=== PATIENT | female | born 1975 | race Caucasian/White ===

== ENCOUNTER 2016-09-25 23:15 | Emergency (ER) | payer OTHER ==
[2016-09-25] MEDS ORDERED: ONDANSETRON 4 MG/2 ML VIAL IVP STA (23:36)
[2016-09-25] MEDS ORDERED: SODIUM CHLORIDE 0.9% 1,000 ML IV STA (23:36)
[2016-09-25] MEDS ORDERED: DICYCLOMINE 10 MG/ML 2 ML AMP IM STA (23:36)
--- NOTE | 2016-09-25 23:39 | ED ---
Abdominal Pain HPI - General Chief Complaint: Abdominal Pain Stated Complaint: abdominal pain Time Seen by Provider: 09/25/16 23:31 Source: patient, RN notes reviewed Mode of arrival: ambulatory Limitations: no limitations - History of Present Illness Initial Comments: 41-year-old female presents emergency Department chief complaint of nausea vomiting and diarrhea. Patient states she has been having nausea and vomiting starting today. Patient states that it then she had episode of diarrhea while she was here. Patient states she has this crampy type pain in the left lower quadrant in the left back. Patient denies any history like this in the past. Patient states she doesn't have any burning or stinging with urination. Patient states she hasn't had any fever or chills. Patient states that she was concerned due to the continued discomfort so she thought that she should be evaluated. Patient denies any recent fever, chills, shortness of breath, chest pain, back pain, numbness or tingling, dysuria or hematuria, constipation, headaches or visual changes, or any other current symptoms. - Related Data Home Medications Medication Instructions Recorded Confirmed Glimepiride [Amaryl] 2 mg PO BID 06/20/14 06/10/16 Ibuprofen [Motrin] 800 mg PO TID PRN 05/11/16 06/10/16 Allergies Allergy/AdvReac Type Severity Reaction Status Date / Time cephalexin monohydrate Allergy Nausea & Verified 09/25/16 23:21 [From Keflex] Vomiting hydromorphone HCl AdvReac Nausea & Verified 09/25/16 23:21 [From Dilaudid] Vomiting Review of Systems ROS Statement: Those systems with pertinent positive or pertinent negative responses have been documented in the HPI. ROS Other: All systems not noted in ROS Statement are negative. Past Medical History Past Medical History: Diabetes Mellitus Additional Past Medical History / Comment(s): CHRONIC NECK PAIN AND MIGRAINES. HISTORY OF RECTAL BLEEDING History of Any Multi-Drug Resistant Organisms: None Reported Past Surgical History: Hysterectomy, Orthopedic Surgery Additional Past Surgical History / Comment(s): Cervical fusion. Knee x2 Additional Past Anesthesia/Blood Transfusion Reaction / Comment(s): DIFFICULT TO WAKE UP. Past Psychological History: No Psychological Hx Reported Smoking Status: Never smoker Past Alcohol Use History: Rare Past Drug Use History: None Reported General Exam - General Exam Comments Initial Comments: General: The patient is awake and alert, in no distress, and does not appear acutely ill. Eye: Pupils are equal, round and reactive to light, extra-ocular movements are intact; there is normal conjunctiva bilaterally. No signs of icterus. Ears, nose, mouth and throat: There are moist mucous membranes. Neck: The neck is supple, there is no tenderness. Cardiovascular: There is a regular rate and rhythm. No murmur, rub or gallop is appreciated. Respiratory: Lungs are clear to auscultation, respirations are non-labored, breath sounds are equal. No wheezes, stridor, rales, or rhonchi. Gastrointestinal: Soft, non-distended, left lower quadrant tenderness of the abdomen without masses or organomegaly noted. There is no rebound or guarding present. No CVA tenderness. Bowel sounds are unremarkable. Back: There is no tenderness to palpation in the midline. There is no obvious deformity. No rashes noted. Musculoskeletal: Normal ROM, no tenderness, There is no pedal edema. There is no calf tenderness or swelling. Sensation intact. Pulses equal bilaterally 2+. Neurological: CN II-XII intact, There are no obvious motor or sensory deficits. Coordination appears grossly intact. Speech is normal. Skin: Skin is warm and dry and no rashes or lesions are noted. Psychiatric: Cooperative, appropriate mood & affect, normal judgment. Limitations: no limitations Course Vital Signs 09/25/16 09/26/16 23:18 01:12 Temperature 97.0 F L 98 F Pulse Rate 96 98 Respiratory 18 20 Rate Blood Pressure 118/57 140/70 O2 Sat by Pulse 98 98 Oximetry - Reevaluation(s) Reevaluation #1: 09/26/16 01:44 Patient sleeping the remainder resting comfortably. Reevaluation #2: 09/26/16 03:12 Patient's glucoses trending down at this time she has been rehydrated. Patient will be discharged. Medical Decision Making - Medical Decision Making 41-year-old male presents emergency Department with chief complaint abdominal pain. Patient was reassessed abdomen is soft nontender. Patient sleeping comfortably and has had no nausea vomiting here. Other similar history but does show some hyperglycemia however acetone is negative. This time lactic is elevated most likely due to dehydration from the nausea vomiting diarrhea and elevated white blood cell count is also most likely due to the nausea and vomiting as a reactive number. At this time we did discuss that we will start patient on Zofran for home and Bentyl to help with her pain. We did discuss that she needs to keep hydrated home. We did discuss follow-up and all patient' s questions. Patient is agreeable plan. She is accompanied plan. She'll be discharged. - Lab Data Result diagrams: 09/25/16 23:59 09/25/16 23:59 Lab Results 09/25/16 09/25/16 09/25/16 Range/Units 23:59 23:59 23:59 WBC 11.3 H (3.8-10.6) k/uL RBC 5.56 H (3.80-5.40) m/uL Hgb 14.1 (11.4-16.0) gm/dL Hct 47.3 H (34.0-46.0) % MCV 85.1 (80.0-100.0) fL MCH 25.4 (25.0-35.0) pg MCHC 29.8 L (31.0-37.0) g/dL RDW 13.5 (11.5-15.5) % Plt Count 280 (150-450) k/uL Neutrophils % 84 % Lymphocytes % 11 % Monocytes % 3 % Eosinophils % 0 % Basophils % 0 % Neutrophils # 9.6 H (1.3-7.7) k/uL Lymphocytes # 1.3 (1.0-4.8) k/uL Monocytes # 0.3 (0-1.0) k/uL Eosinophils # 0.0 (0-0.7) k/uL Basophils # 0.0 (0-0.2) k/uL Hypochromasia Moderate Sodium 138 (137-145) mmol/L Potassium 4.3 (3.5-5.1) mmol/L Chloride 98 (98-107) mmol/L Carbon Dioxide 23 (22-30) mmol/L Anion Gap 17 mmol/L BUN 15 (7-17) mg/dL Creatinine 0.60 (0.52-1.04) mg/dL Est GFR (MDRD) Af Amer >60 (>60 ml/min/1.73 sqM) Est GFR (MDRD) Non-Af >60 (>60 ml/min/1.73 sqM) Glucose 352 H (74-99) mg/dL POC Glucose (mg/dL) (75-99) mg/dL POC Glu Slab Puller ID Plasma Lactic Acid Tj 3.6 H* (0.7-2.0) mmol/L Calcium 10.4 H (8.4-10.2) mg/dL Total Bilirubin 0.6 (0.2-1.3) mg/dL AST 18 (14-36) U/L ALT 34 (9-52) U/L Alkaline Phosphatase 90 (38-126) U/L Total Protein 7.3 (6.3-8.2) g/dL Albumin 4.4 (3.5-5.0) g/dL Amylase 113 H (30-110) U/L Lipase 155 (23-300) U/L Urine Color Urine Appearance (Clear) Urine pH (5.0-8.0) Ur Specific [place] (1.001-1.035) Urine Protein (Negative) Urine Glucose (UA) (Negative) Urine Ketones (Negative) Urine Blood (Negative) Urine Nitrate (Negative) Urine Bilirubin (Negative) Urine Urobilinogen (<2.0) mg/dL Ur Leukocyte Esterase (Negative) Acetone, Qual Negative (Negative) 09/25/16 09/26/16 09/26/16 Range/Units 23:59 01:44 02:23 WBC (3.8-10.6) k/uL RBC (3.80-5.40) m/uL Hgb (11.4-16.0) gm/dL Hct (34.0-46.0) % MCV (80.0-100.0) fL MCH (25.0-35.0) pg MCHC (31.0-37.0) g/dL RDW (11.5-15.5) % Plt Count (150-450) k/uL Neutrophils % % Lymphocytes % % Monocytes % % Eosinophils % % Basophils % % Neutrophils # (1.3-7.7) k/uL Lymphocytes # (1.0-4.8) k/uL Monocytes # (0-1.0) k/uL Eosinophils # (0-0.7) k/uL Basophils # (0-0.2) k/uL Hypochromasia Sodium (137-145) mmol/L Potassium (3.5-5.1) mmol/L Chloride (98-107) mmol/L Carbon Dioxide (22-30) mmol/L Anion Gap mmol/L BUN (7-17) mg/dL Creatinine (0.52-1.04) mg/dL Est GFR (MDRD) Af Amer (>60 ml/min/1.73 sqM) Est GFR (MDRD) Non-Af (>60 ml/min/1.73 sqM) Glucose (74-99) mg/dL POC Glucose (mg/dL) 312 H 315 H (75-99) mg/dL POC Glu Slab Puller Cristy Bertrand Karen Plasma Lactic Acid Tj (0.7-2.0) mmol/L Calcium (8.4-10.2) mg/dL Total Bilirubin (0.2-1.3) mg/dL AST (14-36) U/L ALT (9-52) U/L Alkaline Phosphatase (38-126) U/L Total Protein (6.3-8.2) g/dL Albumin (3.5-5.0) g/dL Amylase (30-110) U/L Lipase (23-300) U/L Urine Color Yellow Urine Appearance Clear (Clear) Urine pH 6.0 (5.0-8.0) Ur Specific [place] 1.026 (1.001-1.035) Urine Protein Negative (Negative) Urine Glucose (UA) 4+ H (Negative) Urine Ketones Trace H (Negative) Urine Blood Negative (Negative) Urine Nitrate Negative (Negative) Urine Bilirubin Negative (Negative) Urine Urobilinogen <2.0 (<2.0) mg/dL Ur Leukocyte Esterase Negative (Negative) Acetone, Qual (Negative) 09/26/16 Range/Units 03:11 WBC (3.8-10.6) k/uL RBC (3.80-5.40) m/uL Hgb (11.4-16.0) gm/dL Hct (34.0-46.0) % MCV (80.0-100.0) fL MCH (25.0-35.0) pg MCHC (31.0-37.0) g/dL RDW (11.5-15.5) % Plt Count (150-450) k/uL Neutrophils % % Lymphocytes % % Monocytes % % Eosinophils % % Basophils % % Neutrophils # (1.3-7.7) k/uL Lymphocytes # (1.0-4.8) k/uL Monocytes # (0-1.0) k/uL Eosinophils # (0-0.7) k/uL Basophils # (0-0.2) k/uL Hypochromasia Sodium (137-145) mmol/L Potassium (3.5-5.1) mmol/L Chloride (98-107) mmol/L Carbon Dioxide (22-30) mmol/L Anion Gap mmol/L BUN (7-17) mg/dL Creatinine (0.52-1.04) mg/dL Est GFR (MDRD) Af Amer (>60 ml/min/1.73 sqM) Est GFR (MDRD) Non-Af (>60 ml/min/1.73 sqM) Glucose (74-99) mg/dL POC Glucose (mg/dL) 231 H (75-99) mg/dL POC Glu Slab Puller ID Jenny Esteves Plasma Lactic Acid Tj (0.7-2.0) mmol/L Calcium (8.4-10.2) mg/dL Total Bilirubin (0.2-1.3) mg/dL AST (14-36) U/L ALT (9-52) U/L Alkaline Phosphatase (38-126) U/L Total Protein (6.3-8.2) g/dL Albumin (3.5-5.0) g/dL Amylase (30-110) U/L Lipase (23-300) U/L Urine Color Urine Appearance (Clear) Urine pH (5.0-8.0) Ur Specific [place] (1.001-1.035) Urine Protein (Negative) Urine Glucose (UA) (Negative) Urine Ketones (Negative) Urine Blood (Negative) Urine Nitrate (Negative) Urine Bilirubin (Negative) Urine Urobilinogen (<2.0) mg/dL Ur Leukocyte Esterase (Negative) Acetone, Qual (Negative) Disposition Clinical Impression: Dehydration, Nausea & vomiting, Diarrhea, Liver lesion, Ovarian cyst, left Disposition: HOME SELF-CARE Condition: Stable Instructions: Dehydration (ED), Gastroenteritis (ED) Additional Instructions: Please use medication as discussed. Please follow up with family doctor if symptoms have not improved over the next two days. Please return to the emergency room if your symptoms increase or worsen or for any other concerns. Referrals: Melo Cotter MD [Primary Care Provider] - 1-2 days Time of Disposition: :12
[2016-09-26 00:12] LABS: Appearance,Urine Clear (Clear); Bilirubin,Urine Negative (Negative); Glucose,Urine (UA) 4+ (Negative); Ketones,Urine Trace (Negative); Leukocyte Esterase,Urine Negative (Negative); Nitrite,Urine Negative (Negative); Protein,Urine Negative (Negative); Specific Gravity,Urine 1.026 (1.001-1.035); UA Billing (MACRO vs. MICRO) CHEM; Urobilinogen,Urine <2.0 mg/dL (<2.0)
[2016-09-26 00:16] LABS: Basophils % (A) 0 %; CH 26.2; CHCM 30.9; Eosinophils % (A) 0 %; HCT 47.3 % (34.0-46.0); HDW 2.99; HGB 14.1 gm/dL (11.4-16.0); Hypochromasia Moderate; Luc # (Auto) 0.12; Luc % (Auto) 1; Lymphocytes # (A) 1.3 k/uL (1.0-4.8); Lymphocytes % (A) 11 %; MCH 25.4 pg (25.0-35.0); MCHC 29.8 g/dL (31.0-37.0); MCV 85.1 fL (80.0-100.0); Mean Platelet Volume 7.1; Monocytes # (A) 0.3 k/uL (0-1.0); Monocytes % (A) 3 %; Neutrophils # (A) 9.6 k/uL (1.3-7.7); Neutrophils % (A) 84 %; RBC 5.56 m/uL (3.80-5.40); RDW 13.5 % (11.5-15.5); WBC 11.3 k/uL (3.8-10.6); WBC (Perox) 11.45
[2016-09-26] MEDS ORDERED: RX INFO: IV CONTRAST WAS GIVEN 1 EACH MISC MISCELLANE PRN (00:23)
[2016-09-26 00:25] LABS: ALT 34 U/L (9-52); AST 18 U/L (14-36); Alkaline Phosphatase 90 U/L (38-126); Amylase 113 U/L (30-110); Anion Gap 17 mmol/L; Blood Urea Nitrogen 15 mg/dL (7-17); Calcium 10.4 mg/dL (8.4-10.2); Carbon Dioxide 23 mmol/L (22-30); Chloride 98 mmol/L (98-107); Glucose 352 mg/dL (74-99); Non-African American GFR(MDRD) >60 (>60 ml/min/1.73 sqM); Potassium 4.3 mmol/L (3.5-5.1); Sodium 138 mmol/L (137-145); Total Bilirubin 0.6 mg/dL (0.2-1.3); Total Protein 7.3 g/dL (6.3-8.2)
[2016-09-26] MEDS ORDERED: SODIUM CHLORIDE 0.9% 2,000 ML IV STA (00:36)
[2016-09-26] MEDS ORDERED: ACETAMINOPHEN IV (For NPO) 1,000 MG in EMPTY BAG 1 BAG IVPB ONE (00:40)
[2016-09-26 01:13] VITALS: BP 140/70; PULSE 98; RESP 20; TEMP 98
--- NOTE | 2016-09-26 01:33 | CT ---
EXAM: CT Abdomen and Pelvis With Intravenous Contrast. CLINICAL HISTORY: Reason: Pain TECHNIQUE: Axial computed tomography images of the abdomen and pelvis with intravenous contrast. CTDI is 9.20 mGy and DLP is 629.2 mGy-cm COMPARISON: None available FINDINGS: Lower thorax: Lung bases are clear. ABDOMEN: Liver: Unremarkable. No mass. Gallbladder and bile ducts: 1.4cm hepatic low density along posterior dome of the liver is nonspecific. This is not identified on delayed postcontrast images and could reflect hepatic hemangioma but cannot exclude hepatic neoplasm or other etiologies. No other focal hepatic abnormalities. No radiopaque gallstones identified. No evidence of biliary dilatation. Pancreas: Unremarkable. No mass. No ductal dilation. Spleen: Unremarkable. No splenomegaly. Adrenals: Unremarkable. No mass. Kidneys and ureters: Small approximately 2 mm nonobstructing calculus upper Pole-mid zone left kidney. No evidence of hydronephrosis. Stomach and bowel: No evidence of bowel obstruction. Colon is incompletely distended limiting colonic evaluation. Appendix: Appendix not identified. No inflammatory changes identified. No evidence of appendicitis. There are no abnormal fluid collections. PELVIS: Bladder: Unremarkable. No mass. Reproductive: Left adnexal low density measuring approximately 1.4 x 2. 3 cm suggesting left ovarian cyst. No other abnormal pelvic masses or fluid collections. Uterus not visualized suggesting previous hysterectomy. ABDOMEN and PELVIS: Intraperitoneal space: Unremarkable. No free air. No significant fluid collection. Vasculature: Unremarkable. No abdominal aortic aneurysm. Lymph nodes: Unremarkable. No enlarged lymph nodes. IMPRESSION: 1.4cm hepatic low-density lesion along posterior dome of liver which is nonspecific. Follow-up ultrasound or pre-and postcontrast MRI abdomen recommended. Small nonobstructing left renal calculus. Small left ovarian cyst.
[2016-09-26 01:46] LABS: Glucose,Whole Blood 312 mg/dL (75-99)
[2016-09-26] MEDS ORDERED: INSULIN LISPRO (humaLOG) 300 UNIT/3 ML VIAL SQ ONE (01:47)
[2016-09-26] MEDS ORDERED: INSULIN REGULAR 100 UNIT/ML VIAL IV STA (02:25)
[2016-09-26 02:27] LABS: Glucose,Whole Blood 315 mg/dL (75-99)
[2016-09-26 03:12] LABS: Glucose,Whole Blood 231 mg/dL (75-99)
== END 2016-09-26 03:23 | disposition home or self-care (01) ==
LOC: EC 23:15
DX: N83.202 Unspecified ovarian cyst, left side (principal); E86.0 Dehydration; R11.2 Nausea with vomiting, unspecified; R19.7 Diarrhea, unspecified; K76.9 Liver disease, unspecified; E11.9 Type 2 diabetes mellitus without complications; Z79.84 Long term (current) use of oral hypoglycemic drugs; Z88.1 Allergy status to other antibiotic agents
CPT/HCPCS: 36415 ×2; 80053; 82150; 82009; 83605; 83690; 85025; 81003; 87040; 87086; 74177; 99284; 96365; 96375 ×2; 96372; 96361 ×3; J0500; J2405; Q9967; J0131

== ENCOUNTER → 2016-11-13 | Outpatient (CLI) | payer OTHER ==
--- NOTE | 2016-11-17 09:24 | MM ---
Reason for exam: screening (asymptomatic). Last mammogram was performed 11 years and 3 months ago. History: Family history of breast cancer in maternal grandmother. Physical Findings: Nurse did not find any significant physical abnormalities on exam. MG Screening Mammo w CAD Bilateral CC and MLO view(s) were taken. No prior studies available for comparison. The breast tissue is heterogeneously dense. This may lower the sensitivity of mammography. There is no discrete abnormality. These results were verbally communicated with the patient and result sheet given to the patient on 11/13/16. ASSESSMENT: Negative, BI-RAD 1 RECOMMENDATION: Routine screening mammogram of both breasts in 1 year. Manage on a clinical basis with regard to left breast pain and milk discharge from the breasts.
== END | disposition home or self-care (01) ==
LOC: RADMAMWWP 16:21
PROVIDERS: ATTEND Internal Medicine
DX: Z12.31 Encounter for screening mammogram for malignant neoplasm of breast (principal)

== ENCOUNTER → 2016-11-23 | Outpatient (CLI) | payer OTHER ==
[2016-11-23 13:28] LABS: CH 24.4; CHCM 30.1; HCT 41.1 % (34.0-46.0); HDW 3.21; HGB 12.5 gm/dL (11.4-16.0); Hypochromasia Marked; MCH 24.8 pg (25.0-35.0); MCHC 30.4 g/dL (31.0-37.0); MCV 81.4 fL (80.0-100.0); Mean Platelet Volume 7.6; RBC 5.05 m/uL (3.80-5.40); RDW 13.6 % (11.5-15.5); WBC 5.9 k/uL (3.8-10.6)
--- NOTE | 2016-11-23 13:29 | XR ---
EXAMINATION TYPE: XR chest 2V DATE OF EXAM: 11/23/2016 1:20 PM COMPARISON: 09/10/2015 TECHNIQUE: PA and lateral views submitted. HISTORY: Physical exam FINDINGS: The lungs are clear and there is no pneumothorax, pleural effusion, or focal pneumonia. Surgical ch jose overlying the cervical spine. IMPRESSION: 1. No acute process.
[2016-11-23 13:37] LABS: ALT 25 U/L (9-52); AST 15 U/L (14-36); Alkaline Phosphatase 77 U/L (38-126); Anion Gap 10 mmol/L; Blood Urea Nitrogen 12 mg/dL (7-17); Carbon Dioxide 27 mmol/L (22-30); Chloride 101 mmol/L (98-107); Cholesterol 162 mg/dL (<200); Glucose 222 mg/dL (74-99); HDL Cholesterol 78 mg/dL (40-60); Non-African American GFR(MDRD) >60 (>60 ml/min/1.73 sqM); Potassium 4.5 mmol/L (3.5-5.1); Sodium 138 mmol/L (137-145); Total Bilirubin 0.5 mg/dL (0.2-1.3); Total Protein 6.5 g/dL (6.3-8.2); Triglycerides 98 mg/dL (<150)
[2016-11-23 14:43] LABS: Hemoglobin A1C 8.6 % (4.2-6.1)
== END | disposition home or self-care (01) ==
LOC: LABWHC1 12:58
PROVIDERS: ATTEND Internal Medicine
DX: Z00.00 Encounter for general adult medical examination without abnormal findings (principal); E11.9 Type 2 diabetes mellitus without complications; E78.2 Mixed hyperlipidemia; J45.909 Unspecified asthma, uncomplicated
CPT/HCPCS: 36415; 71020; 80053; 80061; 82043; 83036; 84439; 84443; 85027

== ENCOUNTER 2017-01-28 02:31 | Observation (INO) | payer OTHER ==
[2017-01-28] MEDS ORDERED: ASPIRIN 81 MG CHEW PO STA (03:08)
--- NOTE | 2017-01-28 03:17 | ED ---
Chest Pain HPI - General Chief Complaint: Chest Pain Stated Complaint: Chest pressure,SOB Time Seen by Provider: 01/28/17 02:40 Source: patient Mode of arrival: ambulatory Limitations: no limitations - History of Present Illness Initial Comments: This patient is a 42-year-old woman who presents to be evaluated for left-sided chest heaviness that came on around 11 PM tonight while she was sitting. The patient does note that she had had a couple of days of left arm numbness prior to the onset of this. Patient describes a heaviness as constant, moderate, without worsening or relieving factors. MD Complaint: chest pain Onset/Timin -: hour(s) Onset: during rest Pain Location: left chest Pain Radiation: LUE Severity: moderate Quality: heaviness Consistency: constant Improves With: nothing Worsens With: nothing Treatments Prior to Arrival: none - Related Data Home Medications Medication Instructions Recorded Confirmed Glimepiride [Amaryl] 2 mg PO BID 06/20/14 06/10/16 Ibuprofen [Motrin] 800 mg PO TID PRN 05/11/16 06/10/16 Allergies Allergy/AdvReac Type Severity Reaction Status Date / Time cephalexin monohydrate Allergy Nausea & Verified 01/28/17 02:47 [From Keflex] Vomiting hydromorphone HCl AdvReac Nausea & Verified 01/28/17 02:47 [From Dilaudid] Vomiting Review of Systems ROS Statement: Those systems with pertinent positive or pertinent negative responses have been documented in the HPI. ROS Other: All systems not noted in ROS Statement are negative. Constitutional: Denies: fever, chills, weakness Respiratory: Denies: cough, dyspnea, wheezes Cardiovascular: Reports: chest pain. Denies: palpitations, dyspnea on exertion , orthopnea, edema, syncope Gastrointestinal: Denies: abdominal pain, nausea, vomiting Genitourinary: Denies: dysuria, hematuria Musculoskeletal: Denies: back pain Skin: Denies: rash Neurological: Denies: headache, weakness, numbness EKG Findings - EKG Results: EKG: interpreted by TOMMIE, sinus rhythm, normal axis, normal QRS, normal ST/T EKG shows: tachycardia (Rate approximately 103 bpm) Past Medical History Past Medical History: Diabetes Mellitus Additional Past Medical History / Comment(s): CHRONIC NECK PAIN AND MIGRAINES. HISTORY OF RECTAL BLEEDING "swollen blood vessels in head" History of Any Multi-Drug Resistant Organisms: None Reported Past Surgical History: Hysterectomy, Orthopedic Surgery Additional Past Surgical History / Comment(s): Cervical fusion. Knee x2 Additional Past Anesthesia/Blood Transfusion Reaction / Comment(s): DIFFICULT TO WAKE UP. Past Psychological History: No Psychological Hx Reported Smoking Status: Never smoker Past Alcohol Use History: Rare Past Drug Use History: None Reported General Exam Limitations: no limitations General appearance: alert, in no apparent distress Head exam: Present: atraumatic, normocephalic, normal inspection ENT exam: Present: normal oropharynx Neck exam: Present: normal inspection Respiratory exam: Present: normal lung sounds bilaterally. Absent: respiratory distress, wheezes, rales, rhonchi, stridor Cardiovascular Exam: Present: regular rate, normal rhythm, normal heart sounds. Absent: systolic murmur, diastolic murmur, rubs, gallop GI/Abdominal exam: Present: soft. Absent: distended, tenderness, guarding, rebound, mass Extremities exam: Present: normal inspection, normal capillary refill. Absent: pedal edema, calf tenderness Back exam: Present: normal inspection. Absent: CVA tenderness (R), CVA tenderness (L) Neurological exam: Present: alert Skin exam: Present: warm, dry, intact, normal color. Absent: rash Course Vital Signs 01/28/17 01/28/17 01/28/17 02:39 03:55 06:26 Temperature 98.7 F Pulse Rate 101 H 92 75 Respiratory 18 18 18 Rate Blood Pressure 135/79 122/65 170/81 O2 Sat by Pulse 97 100 94 L Oximetry Disposition Clinical Impression: Chest pain Disposition: ADMITTED IP TO THIS HOSP Condition: Fair Instructions: Chest Pain (ED) Referrals: Melo Cotter MD [Primary Care Provider] - 1-2 days
[2017-01-28 03:39] LABS: Anisocytosis Slight; Basophils % (A) 0 %; CH 24.5; CHCM 30.9; Eosinophils % (A) 0 %; HCT 44.5 % (34.0-46.0); HDW 2.57; HGB 13.9 gm/dL (11.4-16.0); Hypochromasia Slight; Luc # (Auto) 0.18; Luc % (Auto) 2; Lymphocytes # (A) 3.6 k/uL (1.0-4.8); Lymphocytes % (A) 31 %; MCH 24.9 pg (25.0-35.0); MCHC 31.3 g/dL (31.0-37.0); MCV 79.5 fL (80.0-100.0); Mean Platelet Volume 6.8; Monocytes # (A) 0.4 k/uL (0-1.0); Monocytes % (A) 4 %; Neutrophils # (A) 7.2 k/uL (1.3-7.7); Neutrophils % (A) 63 %; RDW 16.1 % (11.5-15.5); WBC 11.5 k/uL (3.8-10.6); WBC (Perox) 10.76
[2017-01-28 03:47] LABS: ALT 28 U/L (9-52); AST 19 U/L (14-36); Alkaline Phosphatase 70 U/L (38-126); Anion Gap 14 mmol/L; Blood Urea Nitrogen 17 mg/dL (7-17); Calcium 9.7 mg/dL (8.4-10.2); Carbon Dioxide 23 mmol/L (22-30); Chloride 100 mmol/L (98-107); Glucose 297 mg/dL (74-99); Magnesium 1.7 mg/dL (1.6-2.3); Non-African American GFR(MDRD) >60 (>60 ml/min/1.73 sqM); Potassium 4.4 mmol/L (3.5-5.1); Sodium 137 mmol/L (137-145); Total Bilirubin 0.4 mg/dL (0.2-1.3)
[2017-01-28 04:08] LABS: Creatine Kinase 39 U/L (30-135)
--- NOTE | 2017-01-28 04:09 | XR ---
EXAM: XR Chest, 2 Views CLINICAL HISTORY: Reason: Chest Pain TECHNIQUE: Frontal and lateral views of the chest. COMPARISON: 11/23/2016 FINDINGS: Lungs: Unremarkable. No consolidation. Pleural space: Unremarkable. No pneumothorax. Heart: Unremarkable. No cardiomegaly. Mediastinum: Unremarkable. Bones/joints: Unremarkable. IMPRESSION: Normal chest x-rays.
[2017-01-28 04:15] LABS: Partial Thromboplastin Time 21.9 sec (22.0-30.0); Prothrombin Time 9.9 sec (9.0-12.0)
[2017-01-28 04:19] LABS: Creatine Kinase MB 0.8 ng/mL (0.0-2.4); Troponin I <0.012 ng/mL (0.000-0.034)
[2017-01-28] MEDS ORDERED: NITROGLYCERIN SL TABS 0.4 MG TAB SUBLINGUAL PRN (06:37)
[2017-01-28] MEDS ORDERED: SODIUM CHLORIDE 0.9% 1,000 ML IV SCH (06:45)
[2017-01-28 07:26] LABS: Glucose,Whole Blood 228 mg/dL (75-99)
[2017-01-28 08:31] VITALS: BMI 29.9
[2017-01-28 09:58] LABS: Creatine Kinase 27 U/L (30-135)
[2017-01-28 10:10] LABS: Creatine Kinase MB 0.5 ng/mL (0.0-2.4); Troponin I <0.012 ng/mL (0.000-0.034)
[2017-01-28] MEDS ORDERED: DOBUTamine DRIP for NUC MED 500 MG in DEXTROSE/WATER 1 250ML.BAG IV ONE (10:24)
[2017-01-28 12:43] LABS: Hemoglobin A1C 10.5 % (4.2-6.1)
[2017-01-28 13:15] LABS: Glucose,Whole Blood 209 mg/dL (75-99)
--- NOTE | 2017-01-28 14:10 | CONS ---
This is a 42 year old lady who seems to be under some stress lately. She carries a diagnoses of Type 2 diabetes mellitus. She comes into the hospital with complaints of having a somewhat non-descript feeling of left anterior and lateral heaviness in the chest that started around 11:00 p.m. last night when she was sitting and not doing physical activity. Then she felt some numbness in the left arm and came to the hospital. She did not have any recurrence of pain. She is comfortable, resting. Her troponins are normal. She had no diaphoresis, nausea or vomiting. PAST MEDICAL HISTORY: 1. Type 2 diabetes mellitus, on oral agents. 2. She has no known history of any hypertension, myocardial infarction or CVA. 3. She has history of some migraines, neck pain and has some hemorrhoid history. ALLERGIES: KEFLEX, DILAUDID. MEDICATIONS: She takes: 1. Amaryl 2 mg b.i.d. with meals. 2. Motrin prn. REVIEW OF SYSTEMS: Unremarkable other than the above mentioned facts. EKG revealed a sinus mechanism, sinus tachycardia, left atrial prominence. No acute changes. Chest x-ray did not reveal any significant abnormalities. Laboratory data revealed that her troponin levels were normal. I am recommending some thyroid function tests as well. D. dimer was unremarkable. White count was mildly elevated. On examination, blood pressure is 110/70. Pulse rate is 86 per minute. Regular. HEENT: Unremarkable. Fundus was not examined by me. Neck is supple. No JVD. I do not hear a carotid bruit. There is no thyromegaly. Heart exam reveals S1, S2 heard normally without any significant rub, murmur or gallop. Lungs are clear. Abdomen is soft, nontender. Lower extremities are normal. Pulses no edema. Central nervous system is normal. EKG revealed sinus mechanism. No acute changes. Sinus tachycardia. IMPRESSION: 1. Atypical chest pain. 2. Type 2 diabetes mellitus. 3. Some palpitations and tachycardia. RECOMMENDATIONS: I am recommending thyroid function testing and dobutamine echo and if these are normal, she can be discharged. I discussed my thoughts in detail with the patient. Thank you very much for the consult. MARGI
--- NOTE | 2017-01-28 14:47 | ECHOF ---
Referral Reason:CHEST PAIN MEASUREMENTS -------- HEIGHT: 149.9 cm WEIGHT: 67.1 kg BP: FINDINGS -------- The patient received intravenous dobutamine in 5 min (low dose 5mcg/kg/min) and 3 minute stages (>5mcg/kg/min) to a maximum of 40mcg/kg/min plus 0mg atropine. Max Heart Rate: 142 % of Max Predicted Heart Rate: 90% Rest Heart Rate: 80 Rest BP: 140/76 Max BP: 155/53 Mets Achieved: 0 The test was stopped because the target heart rate was achieved. Sinus rhythm. In response to stress, the ECG showed equivocal/borderline ST wave changes (see exercise report for details). [address] depression In response to stress, the ECG showed no ST-T wave changes (see exercise report for details). LV size, wall thickness and systolic function are normal, with an EF of 60%. At recovery dobutamine stress there was appropriate augmentation of systolic function of all segments with decrease in cavity size. CONCLUSIONS -------- 1. In response to stress, the ECG showed equivocal/borderline ST wave changes (see exercise report for details). 2. No 2D echocardiographic evidence of inducible ischemia to achieved workload. PAYROLL AND BENEFITS SPECIALIST: Farida Mirza RDCS
--- NOTE | 2017-01-28 15:30 | HP ---
HISTORY AND PHYSICAL DATE OF ADMISSION: 01/28/17 CHIEF COMPLAINT: Chest pain. This is a 42 year old white female who was brought to the emergency room with chest pain. The patient started experiencing chest pressure and anterior chest pain starting around 11 o'clock at night and she was brought to the emergency room. This was associated with some shortness of breath which was radiating to left arm. The patient also has history of feeling of numbness and tingling of the left arm two days prior to this episode. In the emergency room, she was evaluated with chest pain which was essentially negative. EKG did not show any acute changes. CBC was unremarkable. ( ) 11.5 and hemoglobin 13.9 and platelet count 212,000. PT/INR within normal limits. Her blood sugar was elevated to 297. The patient is known to have diabetes mellitus. The cardiac enzymes are within normal limits. Sodium 137. Potassium 4.4. BUN 17. Creatinine 0.70. Cardiac enzymes within normal limits with troponin less than 0.12. The patient was admitted to the hospital for further evaluation and treatment. Her past medical history reveals she is known to have diabetes mellitus and fibromyalgia, migraine headaches. SHE IS ALLERGIC TO KEFLEX AND DILAUDID, BOTH CAUSES NAUSEA AND VOMITING. She does not smoke and she does not drink alcohol. FAMILY HISTORY: The patient's father had a heart attack and mother has hepatitis C and hypertension and chronic pain syndrome. REVIEW OF SYSTEMS: The patient has history of migraine headaches on and off and also has arthritis of multiple joints. The patient has had a chest pain as mentioned before and she also has had some shortness of breath associated with chest pain. She has no abdominal pain. She has no polyuria or dysuria. She has no neurological symptoms. PHYSICAL EXAMINATION: reveals a 42 year old white female, ( ) she is alert and oriented. She is in no acute distress. No jaundice. There is no generalized lymphadenopathy or no petechia or bruises. Pulses 76 per minute and regular. Blood pressure is 122/80. Examination of the HEENT, neck is supple. There is no jugular venous distention. There is no goiter. There is no carotid bruit. Heart is in sinus rhythm. Lungs are clear to auscultation and percussion. Abdomen is soft and nontender. There is no mass palpable. Examination of the lower extremities, there was no pitting edema. Neurological examination does not reveal any localizing signs. IMPRESSION: 1. Chest pain, rule out unstable angina and coronary artery disease. 2. Diabetes mellitus. 3. History of migraine headaches. 4. History of arthritis involving multiple joints. PLAN: The patient will be admitted to the hospital and heart will be monitored with telemetry and we will get serial EKGs and cardiac enzymes. We will also get cardiology consultation. She will be placed back on her previous home medications. Cardiology apparently scheduled her for dobutamine Lexiscan stress test. If this stress test is negative, the patient will be discharged home after the stress test and if it is positive, we will keep her in the hospital for further evaluation. The diagnosis, prognosis and therapeutic plans were discussed in detail with the patient today. Prognosis guarded. MTDD
[2017-01-28 16:28] LABS: Creatine Kinase 30 U/L (30-135)
[2017-01-28 16:34] VITALS: BP 103/58; PULSE 86; RESP 18; TEMP 98.5
[2017-01-28 16:43] LABS: Creatine Kinase MB 0.6 ng/mL (0.0-2.4); Troponin I <0.012 ng/mL (0.000-0.034)
[2017-01-28 17:08] LABS: Glucose,Whole Blood 233 mg/dL (75-99)
[2017-01-28] MEDS ORDERED: GLIMEPIRIDE 2 MG TAB PO SCH (17:30)
[2017-01-29] MEDS ORDERED: ASPIRIN 325 MG TAB PO SCH (09:00)
--- NOTE | 2017-01-29 16:20 | EST ---
Referral Reason:CHEST PAIN MEASUREMENTS -------- HEIGHT: 149.9 cm WEIGHT: 67.1 kg BP: FINDINGS -------- The patient received intravenous dobutamine in 5 min (low dose 5mcg/kg/min) and 3 minute stages (>5mcg/kg/min) to a maximum of 40mcg/kg/min plus 0mg atropine. Max Heart Rate: 142 % of Max Predicted Heart Rate: 90% Rest Heart Rate: 80 Rest BP: 140/76 Max BP: 155/53 Mets Achieved: 0 The test was stopped because the target heart rate was achieved. Sinus rhythm. In response to stress, the ECG showed equivocal/borderline ST wave changes (see exercise report for details). [address] depression In response to stress, the ECG showed no ST-T wave changes (see exercise report for details). LV size, wall thickness and systolic function are normal, with an EF of 60%. At recovery dobutamine stress there was appropriate augmentation of systolic function of all segments with decrease in cavity size. CONCLUSIONS -------- 1. In response to stress, the ECG showed equivocal/borderline ST wave changes (see exercise report for details). 2. No 2D echocardiographic evidence of inducible ischemia to achieved workload. [facility] CHIEF: Farida Mirza RDCS MTDD
== END 2017-01-28 17:43 | disposition home or self-care (01) ==
LOC: EC 02:31 → 3OBS 06:38
PROVIDERS: ADMIT Internal Medicine; ATTEND Internal Medicine
DX: R07.89 Other chest pain (principal); R20.0 Anesthesia of skin; R06.02 Shortness of breath; E11.65 Type 2 diabetes mellitus with hyperglycemia; M54.2 Cervicalgia; G89.29 Other chronic pain; G43.909 Migraine, unspecified, not intractable, without status migrainosus; R00.0 Tachycardia, unspecified; R00.2 Palpitations; R20.2 Paresthesia of skin; M19.90 Unspecified osteoarthritis, unspecified site; M79.7 Fibromyalgia; Z82.49 Family history of ischemic heart disease and other diseases of the circulatory system; Z79.84 Long term (current) use of oral hypoglycemic drugs; Z88.3 Allergy status to other anti-infective agents; Z88.5 Allergy status to narcotic agent
CPT/HCPCS: 99285 ×2; 96360; 96361; 36415; 93005; 93017; 85379; 84439; 80053; 84443; 83036; 82550; 82553; 83735; 84484; 85025; 85610; 85730; 71020; G0378; C8928; J1250; Q9957; 93350

== ENCOUNTER 2017-02-23 19:12 | Emergency (ER) | payer OTHER ==
[2017-02-23 19:35] VITALS: RESP 18; TEMP 96.7
[2017-02-23] MEDS ORDERED: RX INFO: IV CONTRAST WAS GIVEN 1 EACH MISC MISCELLANE PRN (20:19)
[2017-02-23] MEDS ORDERED: ONDANSETRON 4 MG/2 ML VIAL IVP STA (20:19)
[2017-02-23] MEDS ORDERED: SODIUM CHLORIDE 0.9% 1,000 ML IV STA ×2 (20:19)
[2017-02-23] MEDS ORDERED: HYDROmorphone 1 MG/ML 1 ML SYRINGE IVP STA (20:19)
[2017-02-23 21:27] LABS: Appearance,Urine Clear (Clear); Bilirubin,Urine Negative (Negative); Calcium Oxalate Crystals,Urine Few /hpf; Glucose,Urine (UA) 4+ (Negative); Ketones,Urine 1+ (Negative); Leukocyte Esterase,Urine Negative (Negative); Mucus,Urine Rare /hpf; Nitrite,Urine Negative (Negative); Particle Count 3017; Protein,Urine Trace (Negative); RBC,Urine 49 /hpf (0-5); Specific Gravity,Urine 1.028 (1.001-1.035); Squamous Epithelial Cell,Urine 4 /hpf (0-4); UA Billing (MACRO vs. MICRO) MICRO; WBC,Urine 1 /hpf (0-5)
[2017-02-23 21:28] LABS: ALT 33 U/L (9-52); AST 18 U/L (14-36); Alkaline Phosphatase 58 U/L (38-126); Amylase 39 U/L (30-110); Anion Gap 8 mmol/L; Blood Urea Nitrogen 17 mg/dL (7-17); Calcium 9.3 mg/dL (8.4-10.2); Carbon Dioxide 28 mmol/L (22-30); Chloride 99 mmol/L (98-107); Glucose 151 mg/dL (74-99); Non-African American GFR(MDRD) >60 (>60 ml/min/1.73 sqM); Potassium 4.5 mmol/L (3.5-5.1); Sodium 135 mmol/L (137-145); Total Bilirubin 0.3 mg/dL (0.2-1.3); Total Protein 6.4 g/dL (6.3-8.2)
[2017-02-23 21:33] LABS: Basophils % (A) 0 %; CH 25.1; CHCM 31.8; Eosinophils % (A) 0 %; HCT 41.2 % (34.0-46.0); HGB 13.5 gm/dL (11.4-16.0); Luc % (Auto) 2; Lymphocytes # (A) 2.6 k/uL (1.0-4.8); Lymphocytes % (A) 32 %; MCHC 32.8 g/dL (31.0-37.0); MCV 79.2 fL (80.0-100.0); Mean Platelet Volume 7.3; Microcytosis Slight; Monocytes # (A) 0.3 k/uL (0-1.0); Monocytes % (A) 3 %; Neutrophils # (A) 5.1 k/uL (1.3-7.7); Neutrophils % (A) 62 %; RDW 15.9 % (11.5-15.5); WBC 8.2 k/uL (3.8-10.6)
--- NOTE | 2017-02-23 23:01 | CT ---
EXAM: CT Abdomen and Pelvis With Intravenous Contrast CLINICAL HISTORY: Reason: abdominal pain TECHNIQUE: Axial computed tomography images of the abdomen and pelvis with intravenous contrast. CTDI is 36.9 mGy and DLP is 1465 mGy-cm. This CT exam was performed using one or more of the following dose reduction techniques: automated exposure control, adjustment of the mA and/or kV according to patient size, and/or use of iterative reconstruction technique. Coronal and sagittal reconstructions are performed. COMPARISON: No relevant prior studies available. FINDINGS: Lower thorax: No acute findings. ABDOMEN: Liver: 1.2 x 1.5 cm hypodense lesion of right lobe of liver is unchanged, likely a cyst or hemangioma. Gallbladder and bile ducts: Unremarkable. No calcified stones. No ductal dilation. Pancreas: Unremarkable. No mass. No ductal dilation. Spleen: Unremarkable. No splenomegaly. Adrenals: Unremarkable. No mass. Kidneys and ureters: Punctate nonobstructing left renal stone is poorly visualized. No solid mass. No hydronephrosis. Stomach and bowel: Unremarkable. No obstruction. No mucosal thickening. Appendix: Normal appendix. PELVIS: Bladder: Unremarkable. No mass. Reproductive: 4 x 3.3 cm left adnexal cyst, likely of ovarian origin is new. Hysterectomy. ABDOMEN and PELVIS: Intraperitoneal space: Unremarkable. No free air. No significant fluid collection. Bones/joints: No acute fracture. No dislocation. Soft tissues: Unremarkable. Vasculature: Unremarkable. No abdominal aortic aneurysm. Lymph nodes: Unremarkable. No enlarged lymph nodes. IMPRESSION: 1. 4 cm left ovarian cyst. 2. No inflammatory change.
[2017-02-23] MEDS ORDERED: MORPHINE SULFATE 4 MG/ML SYRINGE IVP STA (23:12)
[2017-02-23] MEDS ORDERED: ONDANSETRON 4 MG ODT STARTER PACK 2 TAB BTL PO STA (23:12)
--- NOTE | 2017-02-23 23:16 | ED ---
Abdominal Pain HPI - General Chief Complaint: Abdominal Pain Stated Complaint: Abd Pain Time Seen by Provider: 02/23/17 20:01 Source: patient, RN notes reviewed, old records reviewed Mode of arrival: ambulatory Limitations: no limitations - History of Present Illness Initial Comments: Patient is a 42 year old female with CC of right abdominal pain towards her back. Pt states that she has history of kidney stones, states that the pain started 3 days ago and has been getting worse. She reports occasional vomiting. Denies fever. She reports he was told her liver enzymes have been elvated. - Related Data Home Medications Medication Instructions Recorded Confirmed Glimepiride [Amaryl] 2 mg PO BID 06/20/14 02/23/17 Hydrocodone/Acetaminophen [[place]ro 1 tab PO TID PRN 01/28/17 02/23/17 10-325] Albuterol Inhaler [Ventolin Hfa 1 - 2 puff INHALATION RT-Q6H PRN 02/23/17 Inhaler] Previous Rx's Medication Instructions Recorded HYDROcodone/APAP 10-325MG [[place] 1 tab PO Q6H PRN #15 tab 02/23/17 10-325] Ketorolac [Toradol] 10 mg PO Q6HR #15 tab 02/23/17 Ondansetron Odt [Zofran Odt] 4 mg PO Q8HR PRN #12 tab 02/23/17 Tamsulosin [Flomax] 0.4 mg PO DAILY #10 cap 02/23/17 Allergies Allergy/AdvReac Type Severity Reaction Status Date / Time cephalexin monohydrate AdvReac Nausea & Verified 02/23/17 20:08 [From Keflex] Vomiting hydromorphone HCl AdvReac Nausea & Verified 02/23/17 20:08 [From Dilaudid] Vomiting Review of Systems ROS Statement: Those systems with pertinent positive or pertinent negative responses have been documented in the HPI. ROS Other: All systems not noted in ROS Statement are negative. Past Medical History Past Medical History: Diabetes Mellitus Additional Past Medical History / Comment(s): CHRONIC NECK PAIN AND MIGRAINES. HISTORY OF RECTAL BLEEDING "swollen blood vessels in head" History of Any Multi-Drug Resistant Organisms: None Reported Past Surgical History: Hysterectomy, Orthopedic Surgery Additional Past Surgical History / Comment(s): Cervical fusion. Knee x2 Additional Past Anesthesia/Blood Transfusion Reaction / Comment(s): DIFFICULT TO WAKE UP. Past Psychological History: No Psychological Hx Reported Smoking Status: Never smoker Past Alcohol Use History: Rare Past Drug Use History: None Reported - Past Family History Mother Family Medical History: No Reported History Father Family Medical History: No Reported History General Exam - General Exam Comments Initial Comments: Well appearing 42 year old female, no dsitress. Limitations: no limitations General appearance: alert, in no apparent distress Head exam: Present: atraumatic, normocephalic, normal inspection Eye exam: Present: normal appearance, PERRL, EOMI. Absent: scleral icterus, conjunctival injection, periorbital swelling ENT exam: Present: normal exam, mucous membranes moist Neck exam: Present: normal inspection. Absent: tenderness, meningismus, lymphadenopathy Respiratory exam: Present: normal lung sounds bilaterally. Absent: respiratory distress, wheezes, rales, rhonchi, stridor Cardiovascular Exam: Present: regular rate, normal rhythm, normal heart sounds. Absent: systolic murmur, diastolic murmur, rubs, gallop, clicks GI/Abdominal exam: Present: soft, tenderness (RUQ tenderness. ), normal bowel sounds. Absent: distended, guarding, rebound, rigid Extremities exam: Present: normal inspection, full ROM, normal capillary refill. Absent: tenderness, pedal edema, joint swelling, calf tenderness Back exam: Present: normal inspection Neurological exam: Present: alert, oriented X3, CN II-XII intact Psychiatric exam: Present: normal affect, normal mood Skin exam: Present: warm, dry, intact, normal color. Absent: rash Course Vital Signs 02/23/17 02/23/17 19:31 23:21 Temperature 96.7 F L Pulse Rate 89 76 Respiratory 18 18 Rate Blood Pressure 99/64 118/57 O2 Sat by Pulse 98 99 Oximetry Medical Decision Making - Medical Decision Making Patient has siginficant RUQ tenderness, due to pain and presentation, patient recieved CT abodmen and pelvis. Patient CT showed some renal stones. No hydronephrosis. Labwork was benign besides hematuria. Patient will be treated for kidney stone, and discharged with norco, norflex, flomax, and toradol. Return parameters discussed. - Lab Data Result diagrams: 02/23/17 21:09 02/23/17 21:09 Lab Results 02/23/17 02/23/17 02/23/17 Range/Units 21:09 21:09 21:09 WBC 8.2 (3.8-10.6) k/uL RBC 5.20 (3.80-5.40) m/uL Hgb 13.5 (11.4-16.0) gm/dL Hct 41.2 (34.0-46.0) % MCV 79.2 L (80.0-100.0) fL MCH 26.0 (25.0-35.0) pg MCHC 32.8 (31.0-37.0) g/dL RDW 15.9 H (11.5-15.5) % Plt Count 218 (150-450) k/uL Neutrophils % 62 % Lymphocytes % 32 % Monocytes % 3 % Eosinophils % 0 % Basophils % 0 % Neutrophils # 5.1 (1.3-7.7) k/uL Lymphocytes # 2.6 (1.0-4.8) k/uL Monocytes # 0.3 (0-1.0) k/uL Eosinophils # 0.0 (0-0.7) k/uL Basophils # 0.0 (0-0.2) k/uL Microcytosis Slight Sodium 135 L (137-145) mmol/L Potassium 4.5 (3.5-5.1) mmol/L Chloride 99 (98-107) mmol/L Carbon Dioxide 28 (22-30) mmol/L Anion Gap 8 mmol/L BUN 17 (7-17) mg/dL Creatinine 0.82 (0.52-1.04) mg/dL Est GFR (MDRD) Af Amer >60 (>60 ml/min/1.73 sqM) Est GFR (MDRD) Non-Af >60 (>60 ml/min/1.73 sqM) Glucose 151 H (74-99) mg/dL Calcium 9.3 (8.4-10.2) mg/dL Total Bilirubin 0.3 (0.2-1.3) mg/dL AST 18 (14-36) U/L ALT 33 (9-52) U/L Alkaline Phosphatase 58 (38-126) U/L Total Protein 6.4 (6.3-8.2) g/dL Albumin 3.8 (3.5-5.0) g/dL Amylase 39 (30-110) U/L Lipase 67 (23-300) U/L Urine Color Yellow Urine Appearance Clear (Clear) Urine pH 6.0 (5.0-8.0) Ur Specific [place] 1.028 (1.001-1.035) Urine Protein Trace H (Negative) Urine Glucose (UA) 4+ H (Negative) Urine Ketones 1+ H (Negative) Urine Blood Moderate H (Negative) Urine Nitrite Negative (Negative) Urine Bilirubin Negative (Negative) Urine Urobilinogen 2.0 (<2.0) mg/dL Ur Leukocyte Esterase Negative (Negative) Urine RBC 49 H (0-5) /hpf Urine WBC 1 (0-5) /hpf Ur Squamous Epith Cells 4 (0-4) /hpf Calcium Oxalate Crystal Few H (None) /hpf Urine Mucus Rare H (None) /hpf - Radiology Data Radiology results: report reviewed 4 cm left-sided ovarian cyst. No inflammatory changes. Gaze ureter show punctate nonobstructing left renal stone poorly visualized. 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 Take medications as prescribed. Return to the emergency department if any alarming signs or symptoms occur. Prescriptions: HYDROcodone/APAP 10-325MG [Tererro 10-325] 1 tab PO Q6H PRN #15 tab PRN Reason: Pain Ketorolac [Toradol] 10 mg PO Q6HR #15 tab Ondansetron Odt [Zofran Odt] 4 mg PO Q8HR PRN #12 tab PRN Reason: Nausea Tamsulosin [Flomax] 0.4 mg PO DAILY #10 cap Referrals: Melo Cotter MD [Primary Care Provider] - 1-2 days Time of Disposition: 23:12
[2017-02-23 23:22] VITALS: BP 118/57; PULSE 76
== END 2017-02-23 23:54 | disposition home or self-care (01) ==
LOC: EC 19:12
DX: N83.202 Unspecified ovarian cyst, left side (principal); N20.0 Calculus of kidney; E11.9 Type 2 diabetes mellitus without complications; Z79.84 Long term (current) use of oral hypoglycemic drugs; Z88.1 Allergy status to other antibiotic agents; Z88.5 Allergy status to narcotic agent; Z90.710 Acquired absence of both cervix and uterus; Z53.20 Procedure and treatment not carried out because of patient's decision for unspecified reasons
CPT/HCPCS: 36415; 80053; 82150; 83690; 85025; 81001; 74177; 99284; 96374; 96375; 96361 ×3; J2270; J2405; Q9967; S0119

== ENCOUNTER 2017-03-17 11:59 | Emergency (ER) | payer OTHER ==
[2017-03-17 12:04] VITALS: RESP 18
[2017-03-17] MEDS ORDERED: HYDROcodone/APAP 5-325MG 1 EACH TAB PO STA (12:35)
[2017-03-17] MEDS ORDERED: KETOROLAC 60 MG/2 ML VIAL IM STA (12:35)
--- NOTE | 2017-03-17 13:00 | ED ---
General Adult HPI - General Chief complaint: Abdominal Pain Stated complaint: kidney stones? Time Seen by Provider: 03/17/17 12:14 Source: patient, RN notes reviewed, old records reviewed Mode of arrival: ambulatory Limitations: no limitations - History of Present Illness Initial comments: This is a 42-year-old female the ER for evaluation. Patient is here for evaluation kidney stone pain. She states she has severe history of kidney stones and coming in with continued kidney stone pain. No fever though nausea vomiting or diarrhea. No other complaints. States things just like her prior episodes of kidney stones - Related Data Home Medications Medication Instructions Recorded Confirmed Glimepiride [Amaryl] 2 mg PO BID 06/20/14 03/17/17 Hydrocodone/Acetaminophen [[place] 1 tab PO TID PRN 01/28/17 03/17/17 10-325] Albuterol Inhaler [Ventolin Hfa 1 - 2 puff INHALATION RT-Q6H PRN 02/23/17 Inhaler] Previous Rx's Medication Instructions Recorded HYDROcodone/APAP 5-325MG [[place] 1 tab PO Q6HR PRN #30 tab 03/17/17 5-325] Naproxen [Naprosyn] 500 mg PO Q12HR #30 tab 03/17/17 Allergies Allergy/AdvReac Type Severity Reaction Status Date / Time cephalexin monohydrate AdvReac Nausea & Verified 03/17/17 12:11 [From Keflex] Vomiting hydromorphone HCl AdvReac Nausea & Verified 03/17/17 12:11 [From Dilaudid] Vomiting Review of Systems ROS Statement: Those systems with pertinent positive or pertinent negative responses have been documented in the HPI. ROS Other: All systems not noted in ROS Statement are negative. Past Medical History Past Medical History: Diabetes Mellitus Additional Past Medical History / Comment(s): CHRONIC NECK PAIN AND MIGRAINES. HISTORY OF RECTAL BLEEDING "swollen blood vessels in head" History of Any Multi-Drug Resistant Organisms: None Reported Past Surgical History: Hysterectomy, Orthopedic Surgery Additional Past Surgical History / Comment(s): Cervical fusion. Knee x2 Additional Past Anesthesia/Blood Transfusion Reaction / Comment(s): DIFFICULT TO WAKE UP. Past Psychological History: No Psychological Hx Reported Smoking Status: Never smoker Past Alcohol Use History: Rare Past Drug Use History: None Reported - Past Family History Mother Family Medical History: No Reported History Father Family Medical History: No Reported History General Exam Limitations: no limitations General appearance: alert, in no apparent distress Head exam: Present: atraumatic, normocephalic, normal inspection Eye exam: Present: normal appearance, PERRL, EOMI. Absent: scleral icterus, conjunctival injection, periorbital swelling ENT exam: Present: normal exam, mucous membranes moist Neck exam: Present: normal inspection. Absent: tenderness, meningismus, lymphadenopathy Respiratory exam: Present: normal lung sounds bilaterally. Absent: respiratory distress, wheezes, rales, rhonchi, stridor Cardiovascular Exam: Present: regular rate, normal rhythm, normal heart sounds. Absent: systolic murmur, diastolic murmur, rubs, gallop, clicks GI/Abdominal exam: Present: soft, normal bowel sounds. Absent: distended, tenderness, guarding, rebound, rigid Extremities exam: Present: normal inspection, full ROM, normal capillary refill. Absent: tenderness, pedal edema, joint swelling, calf tenderness Back exam: Present: normal inspection Neurological exam: Present: alert, oriented X3, CN II-XII intact Psychiatric exam: Present: normal affect, normal mood Skin exam: Present: warm, dry, intact, normal color. Absent: rash Course Vital Signs 03/17/17 12:02 Temperature 97.4 F L Pulse Rate 75 Respiratory 18 Rate Blood Pressure 98/54 O2 Sat by Pulse 99 Oximetry - Reevaluation(s) Reevaluation #1: 03/17/17 13:00 Pain is relieved Medical Decision Making - Medical Decision Making 42 female at ER for evaluation of abdominal pain, kidney stone pain. Patient be discharged with pain control encouraged to follow up with urology Disposition Clinical Impression: Left ovarian cyst, Renal stones Disposition: HOME SELF-CARE Condition: Good Instructions: Renal Colic (ED), Kidney Stones (ED) Prescriptions: HYDROcodone/APAP 5-325MG [[place] 5-325] 1 tab PO Q6HR PRN #30 tab PRN Reason: Pain Naproxen [Naprosyn] 500 mg PO Q12HR #30 tab Referrals: Jose Womack MD [STAFF PHYSICIAN] - 1-2 days
[2017-03-17 13:12] VITALS: BP 108/70; PULSE 86; TEMP 98.8
[2017-03-17 13:16] LABS: Appearance,Urine Cloudy (Clear); Bilirubin,Urine Negative (Negative); Glucose,Urine (UA) 3+ (Negative); Ketones,Urine Trace (Negative); Leukocyte Esterase,Urine Negative (Negative); Mucus,Urine Occasional /hpf; Nitrite,Urine Negative (Negative); Particle Count 7852; Protein,Urine Trace (Negative); Squamous Epithelial Cell,Urine 15 /hpf (0-4); UA Billing (MACRO vs. MICRO) MICRO; Urobilinogen,Urine <2.0 mg/dL (<2.0); WBC,Urine 3 /hpf (0-5)
== END 2017-03-17 13:15 | disposition home or self-care (01) ==
LOC: EC 11:59
DX: N20.0 Calculus of kidney (principal); N83.202 Unspecified ovarian cyst, left side; E11.9 Type 2 diabetes mellitus without complications; Z79.84 Long term (current) use of oral hypoglycemic drugs; Z88.1 Allergy status to other antibiotic agents; Z88.5 Allergy status to narcotic agent; Z90.710 Acquired absence of both cervix and uterus
CPT/HCPCS: 81001; 81025; 87086; 99284; 96372; J1885

== ENCOUNTER → 2017-11-26 | Outpatient (CLI) | payer OTHER ==
[2017-11-26 12:41] LABS: ALT 28 U/L (9-52); AST 15 U/L (14-36); Albumin 3.8 g/dL (3.5-5.0); Alkaline Phosphatase 67 U/L (38-126); Anion Gap 10 mmol/L; Blood Urea Nitrogen 14 mg/dL (7-17); Calcium 9.3 mg/dL (8.4-10.2); Carbon Dioxide 29 mmol/L (22-30); Chloride 100 mmol/L (98-107); Cholesterol 168 mg/dL (<200); Glucose 130 mg/dL (74-99); HDL Cholesterol 79 mg/dL (40-60); LDL Cholesterol,Calculated 63 mg/dL (0-99); Potassium 4.5 mmol/L (3.5-5.1); Sodium 139 mmol/L (137-145); Total Bilirubin 0.6 mg/dL (0.2-1.3); Total Protein 6.2 g/dL (6.3-8.2); Triglycerides 130 mg/dL (<150)
[2017-11-26 20:25] LABS: Hemoglobin A1C 9.7 % (4.0-6.0)
== END | disposition home or self-care (01) ==
LOC: LABWHC1 12:01
PROVIDERS: ATTEND Internal Medicine
DX: Z00.00 Encounter for general adult medical examination without abnormal findings (principal); E78.2 Mixed hyperlipidemia; K21.0 Gastro-esophageal reflux disease with esophagitis; E11.9 Type 2 diabetes mellitus without complications
CPT/HCPCS: 36415; 80053; 80061; 82043; 82570; 83036; 84439; 84443

== ENCOUNTER 2018-05-28 20:23 | Emergency (ER) | payer OTHER ==
[2018-05-28 20:29] VITALS: BP 119/74; PULSE 78; RESP 20; TEMP 97.8
[2018-05-28] MEDS ORDERED: ONDANSETRON 4 MG/2 ML VIAL IVP STA (20:46)
[2018-05-28] MEDS ORDERED: KETOROLAC 30 MG/ML 1 ML VIAL IVP STA (20:46)
[2018-05-28] MEDS ORDERED: SODIUM CHLORIDE 0.9% 1,000 ML IV STA (20:46)
--- NOTE | 2018-05-28 20:51 | ED ---
Abdominal Pain HPI - General Source: patient, RN notes reviewed Mode of arrival: ambulatory Limitations: no limitations <Davi Veliz - Last Filed: 05/28/18 22:19> <Ashly Andrews - Last Filed: 05/29/18 23:40> - General Chief Complaint: Abdominal Pain Stated Complaint: Abd pain Time Seen by Provider: 05/28/18 20:33 - History of Present Illness Initial Comments: 43-year-old female sent emergency Department chief complaint of right flank pain. Patient states pain started yesterday morning around 3 AM. Patient states the pain has been consistent. She states at times does wax and wane. She admits to some nausea no vomiting no diarrhea no constipation. She did have noted hematuria and has a history of kidney stones. Patient denies any fever, chills, night sweats, chest pain or shortness of breath. Patient states nothing really makes the pain feel better or worse. Patient states that symptoms feel more like a kidney stone. (Davi Veliz) - Related Data Home Medications Medication Instructions Recorded Confirmed Glimepiride [Amaryl] 2 mg PO BID 06/20/14 03/17/17 Hydrocodone/Acetaminophen [[employer] 1 tab PO TID PRN 01/28/17 03/17/17 10-325] Albuterol Inhaler [Ventolin Hfa 1 - 2 puff INHALATION RT-Q6H PRN 02/23/17 Inhaler] Previous Rx's Medication Instructions Recorded HYDROcodone/APAP 5-325MG [[employer] 1 tab PO Q6HR PRN #30 tab 03/17/17 5-325] Naproxen [Naprosyn] 500 mg PO Q12HR #30 tab 03/17/17 Allergies Allergy/AdvReac Type Severity Reaction Status Date / Time cephalexin monohydrate AdvReac Nausea & Verified 05/28/18 20:29 [From Keflex] Vomiting hydromorphone HCl AdvReac Nausea & Verified 05/28/18 20:29 [From Dilaudid] Vomiting Review of Systems ROS Other: All systems not noted in ROS Statement are negative. <Davi Veliz - Last Filed: 05/28/18 22:19> ROS Other: All systems not noted in ROS Statement are negative. <Ashly Andrews - Last Filed: 05/29/18 23:40> ROS Statement: Those systems with pertinent positive or pertinent negative responses have been documented in the HPI. Past Medical History Past Medical History: Diabetes Mellitus Additional Past Medical History / Comment(s): CHRONIC NECK PAIN AND MIGRAINES. HISTORY OF RECTAL BLEEDING "swollen blood vessels in head" kidney stones History of Any Multi-Drug Resistant Organisms: None Reported Past Surgical History: Bladder Surgery, Hysterectomy, Orthopedic Surgery Additional Past Surgical History / Comment(s): Cervical fusion. Knee x2 Additional Past Anesthesia/Blood Transfusion Reaction / Comment(s): DIFFICULT TO WAKE UP. Past Psychological History: No Psychological Hx Reported Smoking Status: Never smoker Past Alcohol Use History: Rare Past Drug Use History: None Reported - Past Family History Mother Family Medical History: No Reported History Father Family Medical History: No Reported History <Davi Veliz - Last Filed: 05/28/18 22:19> General Exam Limitations: no limitations General appearance: alert, in no apparent distress Head exam: Present: atraumatic, normocephalic, normal inspection Eye exam: Present: normal appearance, PERRL, EOMI. Absent: scleral icterus, conjunctival injection, periorbital swelling ENT exam: Present: normal exam, normal oropharynx, mucous membranes moist Neck exam: Present: normal inspection, full ROM. Absent: tenderness, meningismus, lymphadenopathy Respiratory exam: Present: normal lung sounds bilaterally. Absent: respiratory distress, wheezes, rales, rhonchi, stridor Cardiovascular Exam: Present: regular rate, normal rhythm, normal heart sounds. Absent: systolic murmur, diastolic murmur, rubs, gallop, clicks GI/Abdominal exam: Present: soft, tenderness (Mild right-sided right flank), normal bowel sounds. Absent: distended, guarding, rebound, rigid Back exam: Present: CVA tenderness (R). Absent: CVA tenderness (L) Skin exam: Present: warm, dry, intact, normal color. Absent: rash <Davi Veliz M - Last Filed: 05/28/18 22:19> Vital Signs 05/28/18 20:27 Temperature 97.8 F Pulse Rate 78 Respiratory 20 Rate Blood Pressure 119/74 O2 Sat by Pulse 100 Oximetry Medical Decision Making - Lab Data Result diagrams: 05/28/18 21:05 05/28/18 21:05 <Dvai Veliz - Last Filed: 05/28/18 22:19> - Lab Data Result diagrams: 05/28/18 21:05 05/28/18 21:05 <Ashly Andrews - Last Filed: 05/29/18 23:40> - Medical Decision Making 43-year-old female presented emergency from for right-sided abdominal pain. Patient had lab work, urinalysis, x-ray and CT. There is no 7 abnormality cause for the patient's pain. Patient does have hyperglycemia which is treated with IV fluids and insulin. Patient will be discharged with pain medication, advised follow-up with her PCP and return for any worsening symptoms. (Davi Veliz) I was available for consultation in the emergency department. The history and physical exam were done by the midlevel provider. I was consulted for this patient's care. I reviewed the case with the midlevel provider and based on their presentation of the patient, I agree with the assessment, medical decision making and plan of care as documented. (Ashly Andrews) - Lab Data Lab Results 05/28/18 05/28/18 05/28/18 Range/Units 21:05 21:05 21:05 WBC 8.8 (3.8-10.6) k/uL RBC 5.24 (3.80-5.40) m/uL Hgb 13.6 (11.4-16.0) gm/dL Hct 43.8 (34.0-46.0) % MCV 83.5 (80.0-100.0) fL MCH 26.0 (25.0-35.0) pg MCHC 31.2 (31.0-37.0) g/dL RDW 13.6 (11.5-15.5) % Plt Count 254 (150-450) k/uL Neutrophils % 58 % Lymphocytes % 37 % Monocytes % 3 % Eosinophils % 1 % Basophils % 0 % Neutrophils # 5.0 (1.3-7.7) k/uL Lymphocytes # 3.2 (1.0-4.8) k/uL Monocytes # 0.3 (0-1.0) k/uL Eosinophils # 0.1 (0-0.7) k/uL Basophils # 0.0 (0-0.2) k/uL Hypochromasia Slight Sodium 136 L (137-145) mmol/L Potassium 4.0 (3.5-5.1) mmol/L Chloride 100 (98-107) mmol/L Carbon Dioxide 26 (22-30) mmol/L Anion Gap 10 mmol/L BUN 20 H (7-17) mg/dL Creatinine 0.58 (0.52-1.04) mg/dL Est GFR (CKD-EPI)AfAm >90 (>60 ml/min/1.73 sqM) Est GFR (CKD-EPI)NonAf >90 (>60 ml/min/1.73 sqM) Glucose 309 H (74-99) mg/dL Calcium 10.1 (8.4-10.2) mg/dL Total Bilirubin 0.3 (0.2-1.3) mg/dL AST 22 (14-36) U/L ALT 26 (9-52) U/L Alkaline Phosphatase 81 (38-126) U/L Total Protein 6.6 (6.3-8.2) g/dL Albumin 4.0 (3.5-5.0) g/dL Amylase 53 (30-110) U/L Lipase 81 (23-300) U/L Urine Color Light Yellow Urine Appearance Clear (Clear) Urine pH 5.5 (5.0-8.0) Ur Specific [place] 1.031 (1.001-1.035) Urine Protein Negative (Negative) Urine Glucose (UA) 4+ H (Negative) Urine Ketones Trace H (Negative) Urine Blood Negative (Negative) Urine Nitrite Negative (Negative) Urine Bilirubin Negative (Negative) Urine Urobilinogen <2.0 (<2.0) mg/dL Ur Leukocyte Esterase Negative (Negative) Disposition Is patient prescribed a controlled substance at d/c from ED?: No Time of Disposition: 22:20 <Davi Veliz M - Last Filed: 05/28/18 22:19> <Ashly Andrews - Last Filed: 05/29/18 23:40> Clinical Impression: Abdominal pain, Hyperglycemia Disposition: HOME SELF-CARE Condition: Stable Instructions: Abdominal Pain (ED) Additional Instructions: Please return to the Emergency Department if symptoms worsen or any other concerns. Referrals: Melo Cotter MD [Primary Care Provider] - 1-2 days
[2018-05-28 21:26] LABS: Appearance,Urine Clear (Clear); Basophils % (A) 0 %; Bilirubin,Urine Negative (Negative); Blood,Urine Negative (Negative); Color,Urine Light Yellow; Eosinophils # (A) 0.1 k/uL (0-0.7); Eosinophils % (A) 1 %; Glucose,Urine (UA) 4+ (Negative); HCT 43.8 % (34.0-46.0); HGB 13.6 gm/dL (11.4-16.0); Hypochromasia Slight; Ketones,Urine Trace (Negative); Leukocyte Esterase,Urine Negative (Negative); Lymphocytes # (A) 3.2 k/uL (1.0-4.8); Lymphocytes % (A) 37 %; MCHC 31.2 g/dL (31.0-37.0); MCV 83.5 fL (80.0-100.0); Monocytes # (A) 0.3 k/uL (0-1.0); Monocytes % (A) 3 %; Neutrophils % (A) 58 %; Nitrite,Urine Negative (Negative); PH, Urine 5.5 (5.0-8.0); Platelet Count 254 k/uL (150-450); Protein,Urine Negative (Negative); RBC 5.24 m/uL (3.80-5.40); RDW 13.6 % (11.5-15.5); Specific Gravity,Urine 1.031 (1.001-1.035); Urobilinogen,Urine <2.0 mg/dL (<2.0); WBC 8.8 k/uL (3.8-10.6)
[2018-05-28 21:34] LABS: ALT 26 U/L (9-52); AST 22 U/L (14-36); Alkaline Phosphatase 81 U/L (38-126); Amylase 53 U/L (30-110); Anion Gap 10 mmol/L; Blood Urea Nitrogen 20 mg/dL (7-17); Calcium 10.1 mg/dL (8.4-10.2); Carbon Dioxide 26 mmol/L (22-30); Chloride 100 mmol/L (98-107); Glucose 309 mg/dL (74-99); Lipase 81 U/L (23-300); Sodium 136 mmol/L (137-145); Total Bilirubin 0.3 mg/dL (0.2-1.3); Total Protein 6.6 g/dL (6.3-8.2)
--- NOTE | 2018-05-28 21:34 | XR ---
EXAMINATION TYPE: XR KUB DATE OF EXAM: 05/28/2018 9:25 PM CLINICAL HISTORY: Right-sided abdominal pain for one day TECHNIQUE: supine KUB image of the abdomen is obtained. COMPARISON: None. FINDINGS: Scattered gas is seen in non-distended small bowel loops. Gas and fecal material is seen in non-distended colon. There is no visceromegaly, pneumoperitoneum, or abnormal calcification apprecia randy. The lung bases are clear and the osseous structures are intact. IMPRESSION: Nonobstructive bowel gas pattern. No evidence of acute intra-abdominal or pelvic process.
[2018-05-28] MEDS ORDERED: INSULIN REGULAR 100 UNIT/ML VIAL IV ONE (21:38)
[2018-05-28] MEDS ORDERED: SODIUM CHLORIDE 0.9% 1,000 ML IV ONE (21:39)
--- NOTE | 2018-05-28 22:05 | CT ---
EXAMINATION TYPE: CT abdomen pelvis wo con DATE OF EXAM: 05/28/2018 HISTORY: Right sided abdominal pain and nausea. CT DLP: 514.4 mGycm. Automated Exposure Control for Dose Reduction was Utilized. TECHNIQUE: CT scan of the abdomen and pelvis is performed without oral or IV contrast. COMPARISON: CT abdomen pelvis dated 02/18/17 FINDINGS: Within the limitations of a non-contrast study, the following observations are made. LUNG BASES: No significant abnormality is appreciated. LIVER/GB: No significant abnormality is appreciated. A stable low-density lesion is seen in the right hepatic lobe. PANCREAS: No significant abnormality is seen. SPLEEN: No significant abnormality is seen. ADRENALS: No significant abnormality is seen. KIDNEYS: Multiple bilateral punctate nonobstructing renal calculi. BOWEL: Moderate amount of stool is seen throughout the rectosigmoid colon. Appendix is normal. GENITAL ORGANS: Uterus is absent. LYMPH NODES: No greater than 1cm abdominal or pelvic lymph nodes are appreciated. OSSEOUS STRUCTURES: No significant abnormality is seen. OTHER: No significant additional abnormality is seen. IMPRESSION: 1. No acute intra-abdominal process is evident on this unenhanced study. 2. Multiple bilateral punctate nonobstructing renal calculi.
[2018-05-28] MEDS ORDERED: ONDANSETRON 4 MG ODT STARTER PACK 2 TAB BTL PO STA (22:20)
[2018-05-28] MEDS ORDERED: ACET/COD 300 MG/30 MG STARTER PACK 6 TAB BTL PO STA (22:20)
[2018-05-28] MEDS ORDERED: MORPHINE SULFATE 4 MG/ML SYRINGE IVP STA (22:22)
== END 2018-05-28 22:55 | disposition home or self-care (01) ==
LOC: EC 20:23
DX: E11.65 Type 2 diabetes mellitus with hyperglycemia (principal); R10.9 Unspecified abdominal pain; R11.0 Nausea; R31.9 Hematuria, unspecified; Z79.84 Long term (current) use of oral hypoglycemic drugs; Z79.899 Other long term (current) drug therapy; Z88.1 Allergy status to other antibiotic agents; Z88.5 Allergy status to narcotic agent; Z90.710 Acquired absence of both cervix and uterus
CPT/HCPCS: 36415; 80053; 82150; 83690; 85025; 81003; 87086; 74018; 74176; 99284; 96374; 96375 ×2; 96361; J2270; J2405; J1885; S0119

== ENCOUNTER 2018-06-07 08:27 | Day surgery (SDC) | payer OTHER ==
[2018-06-02 14:08] VITALS: BMI 28.3
[~2018-06-07 08:27] MED LIST: LACTATED RINGERS 1,000 ML IV SCH; LIDOCAINE 1% 20 ML VIAL (10MG/ML) FOR IV START INTRADERMA PRN
[2018-06-07 08:46] VITALS: RESP 16; TEMP 97.4
[2018-06-07 08:53] LABS: Glucose,Whole Blood 105 mg/dL (75-99)
[2018-06-07] MEDS ORDERED: LIDOCAINE 1% INJ 10MG/ML (20 ML MDV) ONE (09:48)
[2018-06-07] MEDS ORDERED: PROPOFOL 10 MG/ML 20 ML VIAL IV ONE (09:48)
--- NOTE | 2018-06-07 10:29 | P.PCN ---
Date of Procedure: 06/07/18 Procedure(s) Performed: Procedure: Colonoscopy and biopsy. Preoperative diagnosis: History of polyps and family history of rectal cancer in her mother. Postoperative diagnosis: 1. Diminutive polyp in the rectum biopsy, otherwise, exam to the cecum show no obvious abnormalities. 2. Less than ideal preparation as noted below. Preparation: HalfLytely prep. Sedation: Was provided by anesthesia. Brief clinical history: The patient is a 43-year-old female who is scheduled for this evaluation for the above reasons. She had a prior exam several years back. Her mother was diagnosed with rectal cancer at age 63. Procedure: With the patient on her left lateral decubitus position and after informed consent and adequate sedation, the perianal area was inspected and it did not show any fissures or fistulas. There were no masses felt on digital rectal examination. The Olympus CFQ 160L video colonoscope was then inserted in the rectum in the usual fashion and advanced to the cecum. Unfortunately, the preparation was less than ideal. I spent some time cleansing the bowel as I was withdrawing the endoscope. There was a diminutive polyp in the rectum which I biopsied, otherwise, there was no obvious large polyps or tumors. With her less than ideal preparation, small polyps or superficial pathology could have been missed. I retroflexed the endoscope in the rectum before the endoscope was withdrawn. The patient tolerated the procedure well. Plan: The patient was reassured. I am recommending repeat exam in 3-5 years after a 2 day preparation depending on the pathology results.
[2018-06-07 10:44] LABS: Glucose,Whole Blood 96 mg/dL (75-99)
[2018-06-07 10:45] VITALS: BP 120/84; PULSE 84
== END 2018-06-07 11:01 | disposition home or self-care (01) ==
LOC: ORWHC2ENDO 08:27
DX: Z12.11 Encounter for screening for malignant neoplasm of colon (principal); K62.1 Rectal polyp; Z86.010 Personal history of colon polyps; Z80.0 Family history of malignant neoplasm of digestive organs; E11.9 Type 2 diabetes mellitus without complications; M19.90 Unspecified osteoarthritis, unspecified site; M54.2 Cervicalgia; J45.909 Unspecified asthma, uncomplicated; G43.909 Migraine, unspecified, not intractable, without status migrainosus; Z79.4 Long term (current) use of insulin; Z79.899 Other long term (current) drug therapy; Z88.1 Allergy status to other antibiotic agents; Z88.5 Allergy status to narcotic agent
CPT/HCPCS: 88305; 45380; J2001; J2704

== ENCOUNTER → 2018-08-12 | Outpatient (CLI) | payer OTHER ==
[2018-08-12 18:59] LABS: Vitamin D 25 Hydroxy 11.4 ng/mL (30.0-100.0)
[2018-08-12 21:39] LABS: C-Peptide 1.21 ng/mL (0.81-3.85)
[2018-08-12 22:29] LABS: Hemoglobin A1C 11.4 % (4.0-6.0)
== END | disposition home or self-care (01) ==
LOC: LABWHC1 14:06
PROVIDERS: ATTEND Internal Medicine
DX: E11.65 Type 2 diabetes mellitus with hyperglycemia (principal)
CPT/HCPCS: 36415; 80061; 82043; 82306; 82570; 82947; 83036; 84439; 84443; 84681

== ENCOUNTER 2018-08-13 18:05 | Emergency (ER) | payer OTHER ==
[2018-08-13 23:48] LABS: Appearance,Urine Clear (Clear); Bilirubin,Urine Negative (Negative); Blood,Urine Negative (Negative); Color,Urine Yellow; Glucose,Urine (UA) 4+ (Negative); Ketones,Urine Negative (Negative); Leukocyte Esterase,Urine Negative (Negative); Nitrite,Urine Negative (Negative); PH, Urine 6.5 (5.0-8.0); Protein,Urine Negative (Negative)
[2018-08-13 23:50] LABS: ALT 27 U/L (9-52); AST 16 U/L (14-36); Albumin 3.2 g/dL (3.5-5.0); Alkaline Phosphatase 47 U/L (38-126); Anion Gap 6 mmol/L; Blood Urea Nitrogen 13 mg/dL (7-17); Calcium 8.6 mg/dL (8.4-10.2); Carbon Dioxide 27 mmol/L (22-30); Chloride 105 mmol/L (98-107); Glucose 145 mg/dL (74-99); Potassium 4.5 mmol/L (3.5-5.1); Sodium 138 mmol/L (137-145); Total Bilirubin 0.5 mg/dL (0.2-1.3); Total Protein 5.6 g/dL (6.3-8.2)
[2018-08-14 00:06] LABS: Basophils % (A) 0 %; Eosinophils # (A) 0.1 k/uL (0-0.7); Eosinophils % (A) 1 %; HCT 40.6 % (34.0-46.0); HGB 12.6 gm/dL (11.4-16.0); Lymphocytes # (A) 2.7 k/uL (1.0-4.8); Lymphocytes % (A) 36 %; MCH 24.9 pg (25.0-35.0); MCHC 31.1 g/dL (31.0-37.0); MCV 80.2 fL (80.0-100.0); Mean Platelet Volume 6.8; Monocytes # (A) 0.3 k/uL (0-1.0); Monocytes % (A) 4 %; Neutrophils # (A) 4.2 k/uL (1.3-7.7); Neutrophils % (A) 57 %; Platelet Count 229 k/uL (150-450); RBC 5.07 m/uL (3.80-5.40); RDW 14.8 % (11.5-15.5); WBC 7.3 k/uL (3.8-10.6)
[2018-08-14 00:28] LABS: Creatine Kinase MB 0.4 ng/mL (0.0-2.4)
[2018-08-14] MEDS ORDERED: IBUPROFEN 600 MG TAB PO STA (02:47)
--- NOTE | 2018-08-14 03:05 | CT ---
CT scan of the brain without contrast. CT angiogram of the neck. CT angiogram of the brain. History swelling and pain left side of face. TECHNIQUE: Multiple axial sections were obtained of the brain without contrast. Multiple axial sections were obt ained from the aortic arch to the vertex of the brain with intravenous contrast. There are 3-D post p rocessed images. The contrast was Isovue 65 mL. FINDINGS: Ventricles and sulci appear normal. There is no mass effect nor midline shift. There is no sign of in tracranial hemorrhage. The calvarium is intact. There is normal branching pattern of the great vessels on the aortic arch. There is bilateral arteria l flow in the subclavian arteries. There is arterial flow in the common internal and external carotid arteries bilaterally. Carotid arteries are widely patent. There is bilateral arterial flow in the ve rtebral arteries. Left vertebral artery is larger than the right. There is a diminutive right vertebr al artery. The basilar artery appears to fill almost entirely from the left side. There is arterial flow in the vertebrobasilar artery system. There is arterial flow in the anterior m iddle and posterior cerebral arteries. I see no evidence of aneurysm or neovascularity. There is no m ass effect. There is no evidence of hemodynamic stenosis. There is normal contrast opacification of t he venous sinuses. Sella turcica appears normal. There is no evidence of cerebral ischemia. IMPRESSION: Negative CT scan of the brain. Negative CT angiogram of the neck. Negative CT angiogram of the brain.
[2018-08-15 08:35] LABS: Glucose,Whole Blood 153 mg/dL (75-99)
== END 2018-08-14 03:05 | disposition home or self-care (01) ==
LOC: EC 18:05
DX: H92.02 Otalgia, left ear (principal); R51 Headache; R68.83 Chills (without fever); Z88.1 Allergy status to other antibiotic agents; Z88.5 Allergy status to narcotic agent
CPT/HCPCS: 99284 ×2; 96374 ×2; 36415; 80053; 82550; 82553; 85025; 81003; 87502; 70496; 70498; Q9967

== ENCOUNTER 2019-01-27 16:00 | Observation (INO) | payer OTHER ==
[2019-01-27] MEDS ORDERED: MORPHINE SULFATE 4 MG/ML SYRINGE IV STA ×2 (17:22→19:49)
[2019-01-27] MEDS ORDERED: SODIUM CHLORIDE 0.9% 1,000 ML IV STA ×2 (17:22→18:26)
[2019-01-27] MEDS ORDERED: ONDANSETRON 4 MG/2 ML VIAL IVP STA (17:22)
[2019-01-27 17:59] LABS: Basophils % (A) 0 %; Eosinophils # (A) 0.1 k/uL (0-0.7); Eosinophils % (A) 1 %; HCT 51.9 % (34.0-46.0); HGB 16.6 gm/dL (11.4-16.0); Lymphocytes # (A) 1.7 k/uL (1.0-4.8); Lymphocytes % (A) 14 %; MCH 26.5 pg (25.0-35.0); MCHC 31.9 g/dL (31.0-37.0); MCV 82.9 fL (80.0-100.0); Mean Platelet Volume 7.4; Monocytes # (A) 0.4 k/uL (0-1.0); Monocytes % (A) 3 %; Neutrophils # (A) 9.7 k/uL (1.3-7.7); Neutrophils % (A) 81 %; Platelet Count 232 k/uL (150-450); RBC 6.25 m/uL (3.80-5.40); RDW 14.1 % (11.5-15.5); WBC 11.9 k/uL (3.8-10.6)
[2019-01-27 18:06] LABS: ALT 19 U/L (9-52); AST 21 U/L (14-36); African American GFR (CKD) >90 (>60 ml/min/1.73 sqM); Albumin 3.6 g/dL (3.5-5.0); Alkaline Phosphatase 62 U/L (38-126); Anion Gap 8 mmol/L; Blood Urea Nitrogen 10 mg/dL (7-17); Calcium 8.7 mg/dL (8.4-10.2); Carbon Dioxide 26 mmol/L (22-30); Chloride 104 mmol/L (98-107); Glucose 180 mg/dL (74-99); Non-African American GFR(CKD) >90 (>60 ml/min/1.73 sqM); Potassium 5.1 mmol/L (3.5-5.1); Sodium 138 mmol/L (137-145); Total Bilirubin 0.5 mg/dL (0.2-1.3); Total Protein 5.9 g/dL (6.3-8.2)
--- NOTE | 2019-01-27 18:44 | CT ---
EXAMINATION TYPE: CT abdomen pelvis w con DATE OF EXAM: 01/27/2019 COMPARISON: 05/28/2018 HISTORY: flank pain, vomiting CT DLP: 749.8 mGycm Automated exposure control for dose reduction was used. TECHNIQUE: Helical acquisition of images was performed from the lung bases through the pelvis. CONTRAST: Performed without Oral Contrast and with IV Contrast, patient injected with 100 mL of Isovue 300. FINDINGS: Lung bases are clear. There is no pleural effusion. Heart size is normal. There is no pericardial eff usion. There is 2 cm cyst in the superior right lobe of the liver. Gallbladder appears normal. Spleen appears normal. Stomach appears normal. There is no pancreatic mass. The bile ducts are not dilated. There is no adrenal mass. Kidneys show satisfactory contrast opacification. There is no hydronephrosi s. There is 2 mm calcification interpolar right kidney. Ureters are not dilated. There is no retroper itoneal adenopathy. Bladder distends smoothly. There is no inguinal hernia. There is no free fluid in the pelvis. There is no mesenteric edema. Ther e is no ascites or free air. Appendix appears normal. Appendix is posterior. The lumbar vertebra have normal spacing and alignment. Posterior elements are intact. Bony pelvis tarik ears intact. There is small umbilical hernia that contains fat. I see no intestinal wall thickening. There is mild subcutaneous edema over the lower lumbar spine unchanged. IMPRESSION: NONOBSTRUCTING SMALL RIGHT RENAL CALCULUS. NORMAL APPENDIX. NO SIGN OF ACUTE ABDOMEN AND PELVIS.
[2019-01-27 18:47] LABS: Appearance,Urine Cloudy (Clear); Bilirubin,Urine Negative (Negative); Blood,Urine Negative (Negative); Color,Urine Yellow; Glucose,Urine (UA) 4+ (Negative); Hyaline Casts,Urine 4 /lpf (0-2); Ketones,Urine Negative (Negative); Leukocyte Esterase,Urine Negative (Negative); Mucus,Urine Moderate /hpf; Nitrite,Urine Negative (Negative); PH, Urine 6.5 (5.0-8.0); Protein,Urine Trace (Negative); RBC,Urine 2 /hpf (0-5); Specific Gravity,Urine 1.022 (1.001-1.035); Squamous Epithelial Cell,Urine 7 /hpf (0-4); Urobilinogen,Urine <2.0 mg/dL (<2.0); WBC,Urine 2 /hpf (0-5)
--- NOTE | 2019-01-27 19:04 | ED ---
General Adult HPI - General Chief complaint: Abdominal Pain Stated complaint: poss kidney stone Time Seen by Provider: 01/27/19 17:10 Source: patient, RN notes reviewed, old records reviewed Mode of arrival: ambulatory Limitations: no limitations - History of Present Illness Initial comments: 44-year-old female patient presents to ED with chief complaint of right flank pain which radiates to her back. Patient reports that this began suddenly approximately 4 hours ago. Patient does report that she has had associated nausea and vomiting. Patient denies any chest pain or shortness breath. Patient denies any other complaints at this time. Systemic: Pt denies fatigue, fever/chills, rash. Pt denies weakness, night sweats, weight loss. Neuro: Pt denies headache, visual disturbances, syncope or pre-syncope. HEENT: Pt denies ocular discharge or irritation, otalgia, rhinorrhea, pharyngitis or notable lymphadenopathy. Cardiopulmonary: Pt denies chest pain, SOB, heart palpitations, dyspnea on exertion. Abdominal/GI: Pt denies diarrhea. : Pt denies dysuria, burning w/ urination, frequency/urgency. Denies new onset urinary or bowel incontinence. MSK: Pt denies myalgia, loss of strength or function in extremities. Neuro: Pt denies new onset weakness, paresthesias. - Related Data Home Medications Medication Instructions Recorded Confirmed Insulin Glargine,Hum.rec.anlog 8 unit SQ HS 06/02/18 01/27/19 [Basaglar Kwikpen U-100] Insulin Lispro [Admelog Solostar] 6 unit SQ AC-TID 01/27/19 01/27/19 Pioglitazone HCl [Actos] 15 mg PO DAILY 01/27/19 01/27/19 Allergies Allergy/AdvReac Type Severity Reaction Status Date / Time cephalexin monohydrate AdvReac Nausea & Verified 01/27/19 22:32 [From Keflex] Vomiting Review of Systems ROS Statement: Those systems with pertinent positive or pertinent negative responses have been documented in the HPI. ROS Other: All systems not noted in ROS Statement are negative. Past Medical History Past Medical History: Diabetes Mellitus, Osteoarthritis (OA) Additional Past Medical History / Comment(s): CHRONIC NECK PAIN AND MIGRAINES. HISTORY OF RECTAL BLEEDING "swollen blood vessels in head" kidney stones, INSULIN DEPENDENT History of Any Multi-Drug Resistant Organisms: None Reported Past Surgical History: Bladder Surgery, Hysterectomy, Orthopedic Surgery Additional Past Surgical History / Comment(s): Cervical fusion. RIGHT KNEE ARTHROSCOPIC X2, LEFT ARTHROSCOPIC KNEE X2, Past Anesthesia/Blood Transfusion Reactions: Previous Problems w/ Anesthesia Additional Past Anesthesia/Blood Transfusion Reaction / Comment(s): DIFFICULT TO WAKE UP WITH NECK SURGERY Past Psychological History: Anxiety, Depression Smoking Status: Never smoker Past Alcohol Use History: None Reported Past Drug Use History: None Reported - Past Family History Mother Family Medical History: Cancer Additional Family Medical History / Comment(s): RECTAL CANCER Father Family Medical History: No Reported History General Exam - General Exam Comments Initial Comments: Constitutional: NAD, AOX3, Pt has pleasant affect. HEENT: NC/AT, trachea midline, neck supple, no lymphadenopathy. Posterior pharynx non erythematous, without exudates. External ears appear normal, without discharge. Mucous membranes moist. Eyes PERRLA, EOM intact. There is no scleral icterus. No pallor noted. Cardiopulmonary: RRR, no murmurs, rubs or gallops, no JVD noted. Lungs CTAB in anterior and posterior chung. No peripheral edema. Abdominal exam: Abdomen soft and non-distended. Right flank mild tenderness to palpation, mild right CVA tenderness. Left CVA nontender. Abdomen nontender.. Bowel sounds active in LLQ. No hepatosplenomegaly. No ecchymosis Neuro: CN II-XII grossly intact. No nuchal rigidity. No raccon eyes, no mcclure sign, no hemotympanum. No cervical spinal tenderness. MSK: No posterior calf tenderness bilaterally, homans sign negative bilaterally. Posterior tibialis and radial pulse +2 bilaterally. Sensation intact in upper and lower extremities. Full active ROM in upper and lower extremities, 5/5 stregnth. Limitations: no limitations Course Vital Signs 01/27/19 01/27/19 16:19 19:26 Temperature 98.2 F Pulse Rate 83 95 Respiratory 18 16 Rate Blood Pressure 98/74 112/68 O2 Sat by Pulse 97 100 Oximetry Medical Decision Making - Medical Decision Making 44-year-old female patient presents to ED with chief complaint of right flank pain which radiates to her back. Patient reports that this began suddenly ap proximately 4 hours ago. Patient does report that she has had associated nausea and vomiting. Patient denies any chest pain or shortness breath. Patient denies any other complaints at this time. Patient also stable, afebrile. Physical exam displayed: Abdomen soft and non-distended. Right flank mild tenderness to palpation, mild right CVA tenderness. Left CVA nontender. Abdomen nontender.. Bowel sounds active in LLQ. No hepatosplenomegaly. No ecchymosis. Lymph investigations revealed mild cytosis 11.9. CMP revealed mild leukocytosis of 11.9, lactic acid 2.9. UA displayed +4 glucose, otherwise noncompressive. CT abdomen and pelvis displayed outstretching small right renal calculus, normal appendix, no sign of acute abdomen or pelvis. Further history taking, patient reports that she was having some subjective chills at home. Patient was seen by attending physician Dr. Huertas and reccomendation was made to admit patient to rule out possible pyelonephritis. - Lab Data Result diagrams: 01/27/19 17:44 01/27/19 17:44 Lab Results 01/27/19 01/27/19 01/27/19 Range/Units 17:44 17:44 17:44 WBC 11.9 H (3.8-10.6) k/uL RBC 6.25 H (3.80-5.40) m/uL Hgb 16.6 H (11.4-16.0) gm/dL Hct 51.9 H (34.0-46.0) % MCV 82.9 (80.0-100.0) fL MCH 26.5 (25.0-35.0) pg MCHC 31.9 (31.0-37.0) g/dL RDW 14.1 (11.5-15.5) % Plt Count 232 (150-450) k/uL Neutrophils % 81 % Lymphocytes % 14 % Monocytes % 3 % Eosinophils % 1 % Basophils % 0 % Neutrophils # 9.7 H (1.3-7.7) k/uL Lymphocytes # 1.7 (1.0-4.8) k/uL Monocytes # 0.4 (0-1.0) k/uL Eosinophils # 0.1 (0-0.7) k/uL Basophils # 0.0 (0-0.2) k/uL Sodium 138 (137-145) mmol/L Potassium 5.1 (3.5-5.1) mmol/L Chloride 104 (98-107) mmol/L Carbon Dioxide 26 (22-30) mmol/L Anion Gap 8 mmol/L BUN 10 (7-17) mg/dL Creatinine 0.48 L (0.52-1.04) mg/dL Est GFR (CKD-EPI)AfAm >90 (>60 ml/min/1.73 sqM) Est GFR (CKD-EPI)NonAf >90 (>60 ml/min/1.73 sqM) Glucose 180 H (74-99) mg/dL Lactic Ac Sepsis Rflx Plasma Lactic Acid Tj 2.9 H* (0.7-2.0) mmol/L Calcium 8.7 (8.4-10.2) mg/dL Total Bilirubin 0.5 (0.2-1.3) mg/dL AST 21 (14-36) U/L ALT 19 (9-52) U/L Alkaline Phosphatase 62 (38-126) U/L Total Protein 5.9 L (6.3-8.2) g/dL Albumin 3.6 (3.5-5.0) g/dL Lipase 23 (23-300) U/L Urine Color Urine Appearance (Clear) Urine pH (5.0-8.0) Ur Specific [place] (1.001-1.035) Urine Protein (Negative) Urine Glucose (UA) (Negative) Urine Ketones (Negative) Urine Blood (Negative) Urine Nitrite (Negative) Urine Bilirubin (Negative) Urine Urobilinogen (<2.0) mg/dL Ur Leukocyte Esterase (Negative) Urine RBC (0-5) /hpf Urine WBC (0-5) /hpf Ur Squamous Epith Cells (0-4) /hpf Hyaline Casts (0-2) /lpf Urine Mucus (None) /hpf 01/27/19 01/27/19 01/27/19 Range/Units 18:03 18:17 21:05 WBC (3.8-10.6) k/uL RBC (3.80-5.40) m/uL Hgb (11.4-16.0) gm/dL Hct (34.0-46.0) % MCV (80.0-100.0) fL MCH (25.0-35.0) pg MCHC (31.0-37.0) g/dL RDW (11.5-15.5) % Plt Count (150-450) k/uL Neutrophils % % Lymphocytes % % Monocytes % % Eosinophils % % Basophils % % Neutrophils # (1.3-7.7) k/uL Lymphocytes # (1.0-4.8) k/uL Monocytes # (0-1.0) k/uL Eosinophils # (0-0.7) k/uL Basophils # (0-0.2) k/uL Sodium (137-145) mmol/L Potassium (3.5-5.1) mmol/L Chloride (98-107) mmol/L Carbon Dioxide (22-30) mmol/L Anion Gap mmol/L BUN (7-17) mg/dL Creatinine (0.52-1.04) mg/dL Est GFR (CKD-EPI)AfAm (>60 ml/min/1.73 sqM) Est GFR (CKD-EPI)NonAf (>60 ml/min/1.73 sqM) Glucose (74-99) mg/dL Lactic Ac Sepsis Rflx Y Plasma Lactic Acid Tj 1.1 (0.7-2.0) mmol/L Calcium (8.4-10.2) mg/dL Total Bilirubin (0.2-1.3) mg/dL AST (14-36) U/L ALT (9-52) U/L Alkaline Phosphatase (38-126) U/L Total Protein (6.3-8.2) g/dL Albumin (3.5-5.0) g/dL Lipase (23-300) U/L Urine Color Yellow Urine Appearance Cloudy H (Clear) Urine pH 6.5 (5.0-8.0) Ur Specific [place] 1.022 (1.001-1.035) Urine Protein Trace H (Negative) Urine Glucose (UA) 4+ H (Negative) Urine Ketones Negative (Negative) Urine Blood Negative (Negative) Urine Nitrite Negative (Negative) Urine Bilirubin Negative (Negative) Urine Urobilinogen <2.0 (<2.0) mg/dL Ur Leukocyte Esterase Negative (Negative) Urine RBC 2 (0-5) /hpf Urine WBC 2 (0-5) /hpf Ur Squamous Epith Cells 7 H (0-4) /hpf Hyaline Casts 4 H (0-2) /lpf Urine Mucus Moderate H (None) /hpf Disposition Clinical Impression: Flank pain Disposition: ADMITTED IP TO THIS HOSP Condition: Fair Is patient prescribed a controlled substance at d/c from ED?: No Referrals: Melo Cotter MD [Primary Care Provider] - 1-2 days
[2019-01-27] MEDS ORDERED: MORPHINE SULFATE 4 MG/ML SYRINGE IV PRN (22:10)
[2019-01-27] MEDS ORDERED: NALOXONE 0.4 MG/ML 1 ML VIAL IV PRN (22:10)
[2019-01-27] MEDS ORDERED: IBUPROFEN 400 MG TAB PO PRN (22:10)
[2019-01-27] MEDS: SODIUM CHLORIDE 0.9% 1,000 ML IV SCH (22:45)
[2019-01-27] MEDS: LEVOFLOXACIN 750MG-D5W PMX 750 MG in DEXTROSE/WATER 1 150ML.BAG IVPB SCH (22:47)
[2019-01-28 00:48] VITALS: BMI 30.9
[2019-01-28] MEDS: ONDANSETRON 4 MG/2 ML VIAL IVP PRN ×2 (01:51→07:47)
[2019-01-28] MEDS: INSULIN ASPART (NovoLOG) 100 UNIT/ML VIAL SQ SCH ×4 (07:08→19:37)
[2019-01-28 07:14] LABS: Glucose,Whole Blood 82 mg/dL (75-99)
[2019-01-28 07:38] LABS: Basophils % (A) 0 %; Eosinophils % (A) 0 %; HCT 43.8 % (34.0-46.0); HGB 13.8 gm/dL (11.4-16.0); Hypochromasia Slight; Lymphocytes # (A) 1.6 k/uL (1.0-4.8); Lymphocytes % (A) 19 %; MCH 26.7 pg (25.0-35.0); MCHC 31.6 g/dL (31.0-37.0); MCV 84.5 fL (80.0-100.0); Mean Platelet Volume 7.3; Monocytes # (A) 0.2 k/uL (0-1.0); Monocytes % (A) 3 %; Neutrophils # (A) 6.5 k/uL (1.3-7.7); Neutrophils % (A) 77 %; Platelet Count 190 k/uL (150-450); RBC 5.18 m/uL (3.80-5.40); RDW 14.1 % (11.5-15.5); WBC 8.5 k/uL (3.8-10.6)
[2019-01-28] MEDS: ACETAMINOPHEN TAB 325 MG TAB PO PRN ×2 (07:47→22:10)
[2019-01-28 08:20] LABS: African American GFR (CKD) >90 (>60 ml/min/1.73 sqM); Anion Gap 8 mmol/L; Blood Urea Nitrogen 8 mg/dL (7-17); Calcium 7.5 mg/dL (8.4-10.2); Carbon Dioxide 21 mmol/L (22-30); Chloride 109 mmol/L (98-107); Glucose 80 mg/dL (74-99); Non-African American GFR(CKD) >90 (>60 ml/min/1.73 sqM); Potassium 4.1 mmol/L (3.5-5.1); Sodium 138 mmol/L (137-145)
[2019-01-28] MEDS: SODIUM CHLORIDE 0.9% 1,000 ML IV SCH ×2 (09:00→21:32)
[2019-01-28] MEDS ORDERED: PROCHLORPERAZINE SUPPOSITORY 25 MG SUPP RECTAL PRN (11:00)
--- NOTE | 2019-01-28 11:45 | P.HPIM ---
History of Present Illness H&P Date: 01/28/19 Chief Complaint: Nausea vomiting, associated with right upper quadrant pain also right flank Admission history and physical. Mrs. Kimi Cm a 44 years old white female , single and she had a fianc. Admitted through the emergency room with the severe nausea and vomiting and abdominal pain in the right upper quadrant and also the right flank. Patient was started one day before the presentation with a normal bowel movement but associated with nausea and vomiting and loss of appetite. Patient with history of diabetes mellitus type 2 insulin dependent. History of recurrent stones passed stool in 3 months ago. She had surgery in December [address] Graff for bladder suspension due to incontinent of the urine and unable to control her bladder. She stated she had vaginal yeast for one half month but her previous ACCOUNTING ANALYST Dr. Jain released her with an unknown reason for the patient at this time. Patient indicating that she had at home previously low blood pressure that's her makeup. She refused subcu Lovenox despite the discussion and regarding of to prevent DVT. Patient stated that she dizzy when she walked and she has the compression stocking while she is in bed however I did encourage her to walk at least 4 times a day to avoid DVT in the lower extremities. Habit: Nonsmoker nondrinker. She is 2 para 21 son and 1 daughter in their 20s. Currently she had fianc/boyfriend. Family history: Father of lymphoma at age of 62. Mother alive and she is suffering from rectal cancer. 2 brothers and they are healthy no history of stone in the family. Surgical history: Bladder sling or suspension by Dr. Graff in December 2017 for incontinent with i nability to control her bladder sphincters. Which has been improved. ALLERGY she is ALLERGIC to cephalexin. Physical exam: Vital sign indicating temperature 90.8 F oral, pulse rate is 87 regular and respiratory rate 16 with nonlabored normal. Her blood pressure has been ranging between 101/66 and 92/62 with a mean blood pressure 72. Her oxygen on the room air ranging between 100% to 98%. On the physical exam: HEENT: Head was normocephalic and atraumatic, pupil was equal reactive with normal extraocular movement. Nose no discharge, ear normal hearing, oropharynx natural disease able to sw allow however she lost her appetite because of the discomfort and pain Neck was supple no JVD no thyromegaly no lymphadenopathy trachea midline. Chest is clear to auscultation and percussion. With normal air entry and no wheezes no rhonchi. Heart regular sinus rhythm. Abdomen: She had significant right upper quadrant discomfort and tenderness and positive McBurney sign and despite of the CAT scan of the abdomen indicating that normal gallbladder still suspicious of gallstone versus dyskinesia with the underlying fatty , fertile, female. She had also discomfort on the right flank pain with the association with the CAT scan presentation of 2 mm stone in the right kidney. She also complained of headache and loss of appetite and nausea and vomiting which could be with the previous morphine in the ER associated or with the gallbladder disease. Extremities: No edema and positive pulses with good perfusion bilateral. Neurologically: No cranial nerve deficit no tremors, no lateralizing sign. Psychiatry: Normal mood. Assessment: #1 acute pain with the right upper quadrant and the right flank. #2 2 mm stone in the right kidney by the computed tomography scan. #3 diabetes mellitus type 2 insulin-dependent. #4 obesity. #5 her blood pressure normally on the low side. #6 status post bladder suspension #7 she complained of vaginal yeast. Plan: #1 continue IV fluid #[address] Adair urologist for evaluation with the underlying 2 mm stone however the pain is beyond the size of the stone. #2 intractable pain in the right upper quadrant and the flank area. #3 nausea and vomiting not resolved by Zofran and we will be starting her on rectal substantively of Compazine 25 mg every 8 R. We'll obtain the ultrasound of the abdomen complete to rule out gallbladder stone as well as if there is other stone. And if it is negative we will be planning for biliary dyskinesia with the nuclear scan for the gallbladder if the pain is persistent as well as consultation with the general surgery if the pain not resolved as well as after the recommendation of the urologist. Her laboratories at the time WBC 8.5, hemoglobin 13.8, hematocrit 43.8 and MCV 84.5 her platelet count is normal 190. Sodium 138 potassium 4.1, chloride 109, carbon dioxide 21 anion gap of 8, BUN of 8, and and creatinine 0.43. Estimated glomerular filtration rate is more than 90 and a blood sugar has been controlled well her calcium is 7.5 and and POC glucose was 82 no evidence of overt infection her nitrite is negative and the urine glucoside esterase is negative and WBC in the urine is only 2. With no evidence of hematuria at the blood is negative. Past Medical History Past Medical History: Diabetes Mellitus, Osteoarthritis (OA) Additional Past Medical History / Comment(s): CHRONIC NECK PAIN AND MIGRAINES. HISTORY OF RECTAL BLEEDING "swollen blood vessels in head" kidney stones, INSULIN DEPENDENT History of Any Multi-Drug Resistant Organisms: None Reported Past Surgical History: Bladder Surgery, Hysterectomy, Orthopedic Surgery Additional Past Surgical History / Comment(s): Cervical fusion. RIGHT KNEE ARTHROSCOPIC X2, LEFT ARTHROSCOPIC KNEE X2, Past Anesthesia/Blood Transfusion Reactions: Previous Problems w/ Anesthesia Additional Past Anesthesia/Blood Transfusion Reaction / Comment(s): DIFFICULT TO WAKE UP WITH NECK SURGERY Past Psychological History: Anxiety, Depression Additional Psychological History / Comment(s): NO MEDS TAKEN Smoking Status: Never smoker Past Alcohol Use History: None Reported Past Drug Use History: None Reported Additional Drug Use History / Comment(s): OCCASIONAL USE - Past Family History Mother Family Medical History: Cancer Additional Family Medical History / Comment(s): RECTAL CANCER Father Family Medical History: No Reported History Medications and Allergies Home Medications Medication Instructions Recorded Confirmed Type Insulin Glargine,Hum.rec.anlog 8 unit SQ HS 06/02/18 01/27/19 History [Basaglar Kwikpen U-100] Insulin Lispro [Admelog Solostar] 6 unit SQ AC-TID 01/27/19 01/27/19 History Pioglitazone HCl [Actos] 15 mg PO DAILY 01/27/19 01/27/19 History Allergies Allergy/AdvReac Type Severity Reaction Status Date / Time cephalexin monohydrate AdvReac Mild Nausea & Verified 01/28/19 00:49 [From Keflex] Vomiting Physical Exam Vitals: Vital Signs Temp Pulse Pulse Resp BP BP Pulse Ox 01/28/19 08:00 16 01/28/19 06:39 98 F 87 16 92/62 98 01/28/19 01:02 85 14 01/28/19 00:13 68 20 102/63 100 01/28/19 00:01 98.2 F 85 14 101/66 01/27/19 19:26 95 16 112/68 100 01/27/19 16:19 98.2 F 83 18 98/74 97 Intake and Output 01/27/19 01/28/19 01/28/19 22:59 06:59 14:59 Output Total 400 Balance -400 Output: Urine 400 Other: Voiding Method Toilet Toilet Weight 68.946 kg Results CBC & Chem 7: 01/28/19 07:22 01/28/19 07:22 Labs: Abnormal Lab Results - Last 24 Hours (Table) 01/27/19 01/27/19 01/27/19 Range/Units 17:44 17:44 17:44 WBC 11.9 H (3.8-10.6) k/uL RBC 6.25 H (3.80-5.40) m/uL Hgb 16.6 H (11.4-16.0) gm/dL Hct 51.9 H (34.0-46.0) % Neutrophils # 9.7 H (1.3-7.7) k/uL Chloride (98-107) mmol/L Carbon Dioxide (22-30) mmol/L Creatinine 0.48 L (0.52-1.04) mg/dL Glucose 180 H (74-99) mg/dL Plasma Lactic Acid Tj 2.9 H* (0.7-2.0) mmol/L Calcium (8.4-10.2) mg/dL Total Protein 5.9 L (6.3-8.2) g/dL Urine Appearance (Clear) Urine Protein (Negative) Urine Glucose (UA) (Negative) Ur Squamous Epith Cells (0-4) /hpf Hyaline Casts (0-2) /lpf Urine Mucus (None) /hpf 01/27/19 01/28/19 Range/Units 18:03 07:22 WBC (3.8-10.6) k/uL RBC (3.80-5.40) m/uL Hgb (11.4-16.0) gm/dL Hct (34.0-46.0) % Neutrophils # (1.3-7.7) k/uL Chloride 109 H (98-107) mmol/L Carbon Dioxide 21 L (22-30) mmol/L Creatinine 0.43 L (0.52-1.04) mg/dL Glucose (74-99) mg/dL Plasma Lactic Acid Tj (0.7-2.0) mmol/L Calcium 7.5 L (8.4-10.2) mg/dL Total Protein (6.3-8.2) g/dL Urine Appearance Cloudy H (Clear) Urine Protein Trace H (Negative) Urine Glucose (UA) 4+ H (Negative) Ur Squamous Epith Cells 7 H (0-4) /hpf Hyaline Casts 4 H (0-2) /lpf Urine Mucus Moderate H (None) /hpf Thrombosis Risk Factor Assmnt - Choose All That Apply Each Factor Represents 1 point: Age 41-60 years, Obesity (BMI >25) Other Risk Factors: No Other congenital or acquired thrombophilia - If yes, enter type in comment: No Thrombosis Risk Factor Assessment Total Risk Factor Score: 2 Thrombosis Risk Factor Assessment Level: Low Risk
[2019-01-28] MEDS: KETOROLAC 30 MG/ML 1 ML VIAL IVP PRN (11:55)
--- NOTE | 2019-01-28 12:09 | US ---
EXAMINATION TYPE: US abdomen complete DATE OF EXAM: 01/28/2019 COMPARISON: CT 01/27/2019,US, KUB CLINICAL HISTORY: possible cholelithiasis . Right abdominal pain with recent renal stone, nausea, chi lls EXAM MEASUREMENTS: Liver Length: 11.7 cm Gallbladder Wall: 0.2 cm CBD: 0.4 cm Spleen: 10.9 cm Right Kidney: 9.6 x 5.2 x 4.6 cm Left Kidney: 10.3 x 5.8 x 5.4 cm Pancreas: wnl Liver: no hepatic masses are seen Gallbladder: very small amount of sludge is seen on posterior wall for Day 2 of hospitalization Evidence for sonographic Nunez's sign: at right abdomen CBD: wnl Spleen: wnl Right Kidney: very small hyperechoic, shadowing focus seen upper mid pole and may be renal calcifica tion seen on CT Left Kidney: No hydronephrosis or masses seen Upper IVC: wnl Abd Aorta: size is wnl, mild intimal wall thickening IMPRESSION: 1. Small nonobstructing renal stone right kidney. 2. Some minimal sludge may be within the gallbladder.
[2019-01-28] MEDS: ENOXAPARIN 40 MG/0.4 ML SYRINGE SQ SCH (12:22)
--- NOTE | 2019-01-28 12:24 | P.GSCN ---
History of Present Illness Consult date: 01/28/19 Reason for Consult: Right renal calculus Requesting physician: Mikal Wong History of present illness: The patient is a 44-year-old white female well-known to Dr. Adair. She has a history of recurrent urolithiasis. Yesterday afternoon, she began to experience severe right flank pain radiating to the right upper quadrant. This was associated with nausea and vomiting, and she was subsequently admitted. A computed tomography scan shows a small right renal calculus but no other urologic abnormalities are noted. Review of Systems - Constitutional Reports chills, Denies fever - Gastrointestinal Reports nausea, Reports vomiting - Genitourinary Genitourinary: Reports flank pain, Reports kidney stones, Denies dysuria, Denies hematuria Past Medical History Past Medical History: Diabetes Mellitus, Osteoarthritis (OA) Additional Past Medical History / Comment(s): CHRONIC NECK PAIN AND MIGRAINES. HISTORY OF RECTAL BLEEDING "swollen blood vessels in head" kidney stones, INSULIN DEPENDENT History of Any Multi-Drug Resistant Organisms: None Reported Past Surgical History: Bladder Surgery, Hysterectomy, Orthopedic Surgery Additional Past Surgical History / Comment(s): Cervical fusion. RIGHT KNEE ARTHROSCOPIC X2, LEFT ARTHROSCOPIC KNEE X2, Past Anesthesia/Blood Transfusion Reactions: Previous Problems w/ Anesthesia Additional Past Anesthesia/Blood Transfusion Reaction / Comm: DIFFICULT TO WAKE UP WITH NECK SURGERY Past Psychological History: Anxiety, Depression Additional Psychological History / Comment(s): NO MEDS TAKEN Smoking Status: Never smoker Past Alcohol Use History: None Reported Past Drug Use History: None Reported Additional Drug Use History / Comment(s): OCCASIONAL USE - Past Family History Mother Family Medical History: Cancer Additional Family Medical History / Comment(s): RECTAL CANCER Father Family Medical History: No Reported History Medications and Allergies Home Medications Medication Instructions Recorded Confirmed Type Insulin Glargine,Hum.rec.anlog 8 unit SQ HS 06/02/18 01/27/19 History [Basaglar Kwikpen U-100] Insulin Lispro [Admelog Solostar] 6 unit SQ AC-TID 01/27/19 01/27/19 History Pioglitazone HCl [Actos] 15 mg PO DAILY 01/27/19 01/27/19 History Allergies Allergy/AdvReac Type Severity Reaction Status Date / Time cephalexin monohydrate AdvReac Mild Nausea & Verified 01/28/19 00:49 [From Keflex] Vomiting Surgical - Exam Vital Signs Temp Pulse Resp BP Pulse Ox 98.2 F 83 18 98/74 97 01/27/19 16:19 01/27/19 16:19 01/27/19 16:19 01/27/19 16:19 01/27/19 16:19 - General well developed, well nourished, moderate distress - Neck no masses, trachea midline - Respiratory normal respiratory effort - Abdomen Abdomen: soft, tender (Mild right upper quadrant tenderness to palpation), no masses, no guarding, no rigid, no rebound - Psychiatric oriented to time, oriented to person, oriented to place, speech is normal, memory intact Results - Labs 01/28/19 07:22 01/28/19 07:22 Abnormal Lab Results - Last 24 Hours (Table) 01/27/19 01/27/19 01/27/19 Range/Units 17:44 17:44 17:44 WBC 11.9 H (3.8-10.6) k/uL RBC 6.25 H (3.80-5.40) m/uL Hgb 16.6 H (11.4-16.0) gm/dL Hct 51.9 H (34.0-46.0) % Neutrophils # 9.7 H (1.3-7.7) k/uL Chloride (98-107) mmol/L Carbon Dioxide (22-30) mmol/L Creatinine 0.48 L (0.52-1.04) mg/dL Glucose 180 H (74-99) mg/dL Plasma Lactic Acid Tj 2.9 H* (0.7-2.0) mmol/L Calcium (8.4-10.2) mg/dL Total Protein 5.9 L (6.3-8.2) g/dL Urine Appearance (Clear) Urine Protein (Negative) Urine Glucose (UA) (Negative) Ur Squamous Epith Cells (0-4) /hpf Hyaline Casts (0-2) /lpf Urine Mucus (None) /hpf 01/27/19 01/28/19 Range/Units 18:03 07:22 WBC (3.8-10.6) k/uL RBC (3.80-5.40) m/uL Hgb (11.4-16.0) gm/dL Hct (34.0-46.0) % Neutrophils # (1.3-7.7) k/uL Chloride 109 H (98-107) mmol/L Carbon Dioxide 21 L (22-30) mmol/L Creatinine 0.43 L (0.52-1.04) mg/dL Glucose (74-99) mg/dL Plasma Lactic Acid Tj (0.7-2.0) mmol/L Calcium 7.5 L (8.4-10.2) mg/dL Total Protein (6.3-8.2) g/dL Urine Appearance Cloudy H (Clear) Urine Protein Trace H (Negative) Urine Glucose (UA) 4+ H (Negative) Ur Squamous Epith Cells 7 H (0-4) /hpf Hyaline Casts 4 H (0-2) /lpf Urine Mucus Moderate H (None) /hpf Diabetes panel 01/27/19 01/28/19 Range/Units 17:44 07:22 Sodium 138 138 (137-145) mmol/L Potassium 5.1 4.1 (3.5-5.1) mmol/L Chloride 104 109 H (98-107) mmol/L Carbon Dioxide 26 21 L (22-30) mmol/L BUN 10 8 (7-17) mg/dL Creatinine 0.48 L 0.43 L (0.52-1.04) mg/dL Glucose 180 H 80 (74-99) mg/dL Calcium 8.7 7.5 L (8.4-10.2) mg/dL AST 21 (14-36) U/L ALT 19 (9-52) U/L Alkaline Phosphatase 62 (38-126) U/L Total Protein 5.9 L (6.3-8.2) g/dL Albumin 3.6 (3.5-5.0) g/dL Calcium panel 01/27/19 01/28/19 Range/Units 17:44 07:22 Calcium 8.7 7.5 L (8.4-10.2) mg/dL Albumin 3.6 (3.5-5.0) g/dL Pituitary panel 01/27/19 01/28/19 Range/Units 17:44 07:22 Sodium 138 138 (137-145) mmol/L Potassium 5.1 4.1 (3.5-5.1) mmol/L Chloride 104 109 H (98-107) mmol/L Carbon Dioxide 26 21 L (22-30) mmol/L BUN 10 8 (7-17) mg/dL Creatinine 0.48 L 0.43 L (0.52-1.04) mg/dL Glucose 180 H 80 (74-99) mg/dL Calcium 8.7 7.5 L (8.4-10.2) mg/dL Adrenal panel 01/27/19 01/28/19 Range/Units 17:44 07:22 Sodium 138 138 (137-145) mmol/L Potassium 5.1 4.1 (3.5-5.1) mmol/L Chloride 104 109 H (98-107) mmol/L Carbon Dioxide 26 21 L (22-30) mmol/L BUN 10 8 (7-17) mg/dL Creatinine 0.48 L 0.43 L (0.52-1.04) mg/dL Glucose 180 H 80 (74-99) mg/dL Calcium 8.7 7.5 L (8.4-10.2) mg/dL Total Bilirubin 0.5 (0.2-1.3) mg/dL AST 21 (14-36) U/L ALT 19 (9-52) U/L Alkaline Phosphatase 62 (38-126) U/L Total Protein 5.9 L (6.3-8.2) g/dL Albumin 3.6 (3.5-5.0) g/dL - Imaging CT scan - abdomen: report reviewed, image reviewed Assessment and Plan (1) Calculus of kidney Current Visit: Yes Status: Acute Code(s): N20.0 - CALCULUS OF KIDNEY SNOMED Code(s): 51596065 Plan: In summary, I do not have an explanation for the patient's symptomatology. Urinalysis is not suggestive of infection. The CT scan shows a 2 mm right mid- pole calculus, with no evidence of hydronephrosis. This would not be expected to cause acute pain. It is possible that she passed a right ureteral calculus prior to the CT scan being done, and that her pain has not yet resolved. If this is the case, I would expect symptomatic improvement within the next 24 hours. However, I have no further recommendations. I have advised her to follow-up with Dr. Adair upon discharge. Please notify me if I can be of any further assistance. Time with Patient: Greater than 30
[2019-01-28 12:55] LABS: Glucose,Whole Blood 90 mg/dL (75-99)
--- NOTE | 2019-01-28 18:02 | NM ---
EXAMINATION TYPE: NM hepatobiliary w CCK DATE OF EXAM: 01/28/2019 COMPARISON: NONE INDICATION: Biliary dyskinesia TECHNIQUE: After the intravenous administration of 5 mCi Tc 99m Mebrofenin hepatobiliary scintigraphy is performed. Images were obtained immediately post injection. Patient was administered 1.4 mcg Kin evac. FINDINGS: There is prompt uptake and excretion of radiotracer by the liver. Extrahepatic ducts are identified at 9 minutes. The gallbladder is visualized within 9 minutes. Small bowel activity is noted within 19 minutes. At one hour CCK was administered, patient was injected with 1.4 mcg of Kinevac, and gallbladder eject ion fraction is calculated at 83 %, which is elevated. (Normal >35% and <80%.). IMPRESSION: 1. Biliary hyperkinesia. 2. No obstruction is evident.
[2019-01-28] MEDS: PIOGLITAZONE 15 MG TAB PO SCH (19:37)
[2019-01-28 20:15] LABS: Glucose,Whole Blood 134 mg/dL (75-99)
[2019-01-28] MEDS ORDERED: INSULIN DETEMIR (LEVEMIR) 100 UNIT/ML SYR SQ SCH (21:00)
[2019-01-28] MEDS: LEVOFLOXACIN 750MG-D5W PMX 750 MG in DEXTROSE/WATER 1 150ML.BAG IVPB SCH (21:33)
[2019-01-29] MEDS: SODIUM CHLORIDE 0.9% 1,000 ML IV SCH ×2 (06:34→19:45)
[2019-01-29] MEDS: INSULIN ASPART (NovoLOG) 100 UNIT/ML VIAL SQ SCH ×3 (06:34→18:08)
[2019-01-29 08:05] LABS: Glucose,Whole Blood 56 mg/dL (75-99)
[2019-01-29] MEDS ORDERED: DEXTROSE 10 % IN WATER 150 ML IV ONE (08:27)
--- NOTE | 2019-01-29 08:50 | P.GSCN ---
History of Present Illness Consult date: 01/29/19 Reason for Consult: Cholecystitis History of present illness: 44-year-old female came to the hospital complaining of pain in the right upper quadrant with radiation to the back. This started 2 days ago. She has had episodes similar to this in the past. She also has a history of known kidney stones but states this is a different feeling of discomfort. During this hospitalization the patient has had a CAT scan, ultrasound, and HIDA scan. Urology has assessed this patient in does not believe her symptoms are urologic in origin. A single stone identified in the parenchyma of the right kidney noted. Ultrasound shows gallbladder sludge with some tenderness. HIDA scan not very helpful with a ejection fraction of 83%. Patient is diabetic. Patient has had episodes of nausea and vomiting as well. Appetite diminished. She believes food does aggravate the pain. White blood cell count initially elevated. It is normal now. Her liver enzymes are normal. Review of Systems The patient denies any acute changes in vision or hearing, no dysphagia or odynophagia, no chest pain or shortness of breath, no dysuria or hematuria, no headache, no runny nose, no rectal bleeding or melena, no unexplained weight loss Past Medical History Past Medical History: Diabetes Mellitus, Osteoarthritis (OA) Additional Past Medical History / Comment(s): CHRONIC NECK PAIN AND MIGRAINES. HISTORY OF RECTAL BLEEDING "swollen blood vessels in head" kidney stones, INSULIN DEPENDENT History of Any Multi-Drug Resistant Organisms: None Reported Past Surgical History: Bladder Surgery, Hysterectomy, Orthopedic Surgery Additional Past Surgical History / Comment(s): Cervical fusion. RIGHT KNEE ARTHROSCOPIC X2, LEFT ARTHROSCOPIC KNEE X2, Past Anesthesia/Blood Transfusion Reactions: Previous Problems w/ Anesthesia Additional Past Anesthesia/Blood Transfusion Reaction / Comm: DIFFICULT TO WAKE UP WITH NECK SURGERY Smoking Status: Never smoker - Past Family History Mother Family Medical History: Cancer Additional Family Medical History / Comment(s): RECTAL CANCER Father Family Medical History: No Reported History Medications and Allergies Home Medications Medication Instructions Recorded Confirmed Type Insulin Glargine,Hum.rec.anlog 8 unit SQ HS 06/02/18 01/27/19 History [Basaglar Kwikpen U-100] Insulin Lispro [Admelog Solostar] 6 unit SQ AC-TID 01/27/19 01/27/19 History Pioglitazone HCl [Actos] 15 mg PO DAILY 01/27/19 01/27/19 History Allergies Allergy/AdvReac Type Severity Reaction Status Date / Time cephalexin monohydrate AdvReac Mild Nausea & Verified 01/28/19 00:49 [From Keflex] Vomiting Surgical - Exam Vital Signs Temp Pulse Resp BP Pulse Ox 98.2 F 83 18 98/74 97 01/27/19 16:19 01/27/19 16:19 01/27/19 16:19 01/27/19 16:19 01/27/19 16:19 Physical exam: General: Well-developed, well-nourished HEENT: Normocephalic, sclerae nonicteric Abdomen: Right upper quadrant tenderness, nondistended Extremities: No edema Neuro: Alert and oriented Results - Labs 01/28/19 07:22 01/28/19 07:22 Abnormal Lab Results - Last 24 Hours (Table) 01/28/19 01/29/19 Range/Units 20:14 08:04 POC Glucose (mg/dL) 134 H 56 L (75-99) mg/dL Microbiology - Last 24 Hours (Table) 01/27/19 22:43 Blood Culture - Preliminary Blood No Growth after 24 hours 01/28/19 12:48 Genital Culture - Preliminary Vaginal Assessment and Plan (1) Acute cholecystitis Narrative/Plan: Clinical scenario discussed in detail with the patient. Etiology at this time appears most likely related to the patient's gallbladder sludge with acute cholecystitis. Options reviewed. Will plan laparoscopic, possible open cholecystectomy at this time. Risks of bleeding, infection, bile leak, bile duct injury, retained common bile duct stone, trocar injury, conversion to an open procedure, hernia, persistent right upper quadrant abdominal pain, anesthesia related complications were reviewed. The patient understands and wishes to proceed. Current Visit: Yes Status: Acute Code(s): K81.0 - ACUTE CHOLECYSTITIS SNOMED Code(s): 08029843
[2019-01-29 08:56] LABS: Glucose,Whole Blood 120 mg/dL (75-99)
[2019-01-29] MEDS: PIOGLITAZONE 15 MG TAB PO SCH (09:06)
[2019-01-29] MEDS: ENOXAPARIN 40 MG/0.4 ML SYRINGE SQ SCH (09:06)
[2019-01-29 09:07] LABS: Basophils % (A) 0 %; Eosinophils % (A) 1 %; HCT 41.7 % (34.0-46.0); HGB 12.6 gm/dL (11.4-16.0); Hypochromasia Moderate; Lymphocytes % (A) 42 %; MCH 26.2 pg (25.0-35.0); MCHC 30.3 g/dL (31.0-37.0); MCV 86.6 fL (80.0-100.0); Mean Platelet Volume 7.4; Monocytes # (A) 0.3 k/uL (0-1.0); Monocytes % (A) 4 %; Neutrophils # (A) 3.7 k/uL (1.3-7.7); Neutrophils % (A) 52 %; Platelet Count 191 k/uL (150-450); RBC 4.82 m/uL (3.80-5.40); RDW 14.4 % (11.5-15.5); WBC 7.2 k/uL (3.8-10.6)
[2019-01-29] MEDS: KETOROLAC 30 MG/ML 1 ML VIAL IVP PRN ×3 (09:07→21:40)
[2019-01-29 09:13] LABS: African American GFR (CKD) >90 (>60 ml/min/1.73 sqM); Anion Gap 6 mmol/L; Blood Urea Nitrogen 6 mg/dL (7-17); Calcium 7.5 mg/dL (8.4-10.2); Carbon Dioxide 22 mmol/L (22-30); Chloride 114 mmol/L (98-107); Glucose 50 mg/dL (74-99); Non-African American GFR(CKD) >90 (>60 ml/min/1.73 sqM); Potassium 3.5 mmol/L (3.5-5.1); Sodium 142 mmol/L (137-145)
[2019-01-29] MEDS ORDERED: SUCCINYLCHOLINE CHLORIDE 100 MG/5 ML SYR IV ONE (10:48)
[2019-01-29] MEDS ORDERED: fentaNYL (PF) 50 MCG/ML 2 ML AMP ONE (10:48)
[2019-01-29] MEDS ORDERED: ROCURONIUM BROMIDE 10 MG/ML 10 ML VIAL IV ONE (10:48)
[2019-01-29] MEDS ORDERED: LIDOCAINE 1% INJ 10MG/ML (20 ML MDV) ONE (10:48)
[2019-01-29] MEDS ORDERED: GLYCOPYRROLATE 0.2 MG/ML 2 ML VIAL ONE (10:48)
[2019-01-29] MEDS ORDERED: MIDAZOLAM 2 MG/2 ML VIAL ONE (10:48)
[2019-01-29] MEDS ORDERED: NEOSTIGMINE 1 MG/ML 10 ML VIAL ONE (10:48)
[2019-01-29] MEDS ORDERED: PROPOFOL 10 MG/ML 20 ML VIAL IV ONE (10:48)
[2019-01-29] MEDS ORDERED: IV FLUID CONTINUATION 700 ML IV ONE (10:51)
[2019-01-29] MEDS ORDERED: BUPIVACAINE (PF) 0.25% 30 ML VIAL SQ ONE (11:14)
[2019-01-29] MEDS ORDERED: LACTATED RINGERS 1,000 ML IV ONE (11:37)
[2019-01-29] MEDS ORDERED: HYDROmorphone 1 MG/ML 1 ML SYRINGE IVP ONE ×2 (12:19→12:24)
[2019-01-29 12:35] LABS: Glucose,Whole Blood 96 mg/dL (75-99)
[2019-01-29] MEDS ORDERED: diphenhydrAMINE 50 MG/ML 1 ML VIAL IVP ONE (12:35)
[2019-01-29] MEDS ORDERED: ONDANSETRON 4 MG/2 ML VIAL IVP ONE (12:35)
--- NOTE | 2019-01-29 12:50 | P.OP ---
Date of Procedure: 01/29/19 Procedure(s) Performed: PREOPERATIVE DIAGNOSIS: Acute cholecystitis POSTOPERATIVE DIAGNOSIS: Same PROCEDURE: Laparoscopic cholecystectomy SURGEON: Viki EBL: 50 mL ANESTHESIA: Gen. COMPLICATIONS: None OPERATIVE PROCEDURE: The patient was brought and placed on the operating room table in the supine position. The patient was placed under general anesthesia at that time. The abdomen was prepped and draped in the usual sterile fashion. A small vertical infraumbilical incision was made. The fascia was grasped with the Cristopher forceps. The fascia was retracted anteriorly. The Veress needle was advanced into the peritoneal cavity. The saline drop test was normal. Insufflation took place up to 15 mmHg. A 5 mm optical trocar was advanced and the peritoneal cavity. 2 additional 5 mm trochars were placed in the right upper quadrant under direct visualization. A 12 mm trocar was advanced into the epigastric incision site. The gallbladder was mildly inflamed. The gallbladder was intrahepatic close to the fundus. The gallbladder was retracted superiorly and laterally. The peritoneum overlying the infundibulum was bluntly dissected. The patient's cystic duct was visualized. The junction between the cystic duct common and hepatic duct was identified. The cystic duct was then divided after placement of 3 12 mm clips on the patient's side and one on the specimen side. The cystic artery was identified and clipped as well. A small vessel was seen along the gallbladder fossa and clipped as well. The gallbladder was then removed from the liver bed using electrocautery. The gallbladder was then removed from the epigastric trocar site with an Endo Catch bag. The gallbladder fossa was irrigated with saline. The patient had some bleeding present along the liver edge where the intrahepatic portion of the gallbladder was present. This was controlled using electrocautery. No further bleeding was seen at that time. I did decide to place a drain in the gallbladder fossa given the oozing that was identified once the gallbladder had been removed. Anticipate removing this tomorrow. The fascia at the 12 millimeter site was closed using a Star Castellonon 0 Vicryl stitch. The trochars were then removed. A 3-0 silk stitch was used to secure the drain in place. The skin at all 3 sites was closed using a 4-0 Monocryl stitch. Skin glue was utilized on the incision sites. At the end of this procedure the sponge and needle counts were correct. DISPOSITION: Stable to the recovery room
--- NOTE | 2019-01-29 13:42 | P.PN ---
Subjective Progress Note Date: 01/29/19 (Acute cholecystitis) Principal diagnosis: #1 acute cholecystitis #2 persistent pain in the right upper quadrant associated with nausea and vomiting. #3 status post laparoscopic cholecystectomy on 01/28/[address] Vail. #4 right kidney 2 mm nephrolithiasis apparently in association with the pain but not the cause of the pain. #5 diabetes mellitus insulin-dependent. #6 history of bladder suspension in the past. This is a progress note by , PCP Dr. Melo Cotter. Patient seen and evaluated today she is feeling much better with the underlying status post laparoscopic cholecystectomy by Dr. Vail done yesterday. Her testing indicating that she had ultrasound of the abdomen which indicate the presence of sludge of the gallbladder, subsequently had HIDA scan with ejection fraction and that found to have hyperactivity indicator of gallbladder hyperactivity and hyperkinesia, Dr. Drew general surgeon consulted subsequently he took her to the operative room with the laparoscopic cholecystectomy and she had a drainage. Today her vital signs stable temperature 97.1 F temporal, pulse rate regular 99, respiratory rate 16, blood pressure 117/82. Pulse ox 96%. On exam: Patient's conscious alert postoperative she doing fine with the pain has been markedly subsided. HEENT negative Chest is clear to auscultation and percussion. Neck was supple Heart was regular sinus rhythm, Abdomen status post laparoscopic cholecystectomy with drainage [place]. Extremities no edema positive pulses Assessment acute cholecystitis status post laparoscopic cholecystectomy. #2 right kidney 2 mm [place] nephrolithiasis to follow with Dr. hoang as outpatient. #3 intractable pain has been resolved with the surgery discomfort and positive bowel sounds. Plan patient to continue current treatment and will follow and tomorrow and the plan for discharge within 24/48 hour depend on the surgical clearance. Objective - Vital Signs Vital signs: Vital Signs Temp 97.1 F L 01/29/19 12:10 Pulse 99 01/29/19 12:45 Resp 16 01/29/19 12:45 BP 117/82 01/29/19 12:45 Pulse Ox 96 01/29/19 12:45 Intake & Output 01/28/19 01/29/19 01/29/19 18:59 06:59 18:59 Intake Total 480 1100 Output Total 400 50 Balance -175 200 1481 Intake: IV 1100 Oral 480 Output: Urine 400 Estimated Blood Loss 50 Other: Voiding Method Toilet Toilet # Bowel Movements 1 - Labs CBC & Chem 7: 01/29/19 08:06 01/29/19 08:06 Labs: Abnormal Lab Results - Last 24 Hours (Table) 01/28/19 01/29/19 01/29/19 Range/Units 20:14 08:04 08:06 MCHC 30.3 L (31.0-37.0) g/dL Chloride (98-107) mmol/L BUN (7-17) mg/dL Creatinine (0.52-1.04) mg/dL Glucose (74-99) mg/dL POC Glucose (mg/dL) 134 H 56 L (75-99) mg/dL Calcium (8.4-10.2) mg/dL 01/29/19 01/29/19 Range/Units 08:06 08:54 MCHC (31.0-37.0) g/dL Chloride 114 H (98-107) mmol/L BUN 6 L (7-17) mg/dL Creatinine 0.51 L (0.52-1.04) mg/dL Glucose 50 L (74-99) mg/dL POC Glucose (mg/dL) 120 H (75-99) mg/dL Calcium 7.5 L (8.4-10.2) mg/dL Microbiology - Last 24 Hours (Table) 01/27/19 22:43 Blood Culture - Preliminary Blood No Growth after 24 hours 01/28/19 12:48 Genital Culture - Preliminary Vaginal
[2019-01-29] MEDS: LACTATED RINGERS 1,000 ML IV SCH (13:48)
[2019-01-29] MEDS: HYDROcodone/APAP 5-325MG 1 EACH TAB PO PRN (16:24)
[2019-01-29 17:49] LABS: Glucose,Whole Blood 135 mg/dL (75-99)
[2019-01-29 20:22] LABS: Glucose,Whole Blood 154 mg/dL (75-99)
[2019-01-29] MEDS ORDERED: LEVOFLOXACIN 500MG-D5W PMX 500 MG in DEXTROSE/WATER 1 100ML.BAG IVPB SCH (22:00)
[2019-01-29] MEDS: ONDANSETRON 4 MG/2 ML VIAL IVP PRN (22:19)
[2019-01-29] MEDS: METOCLOPRAMIDE 5 MG/ML 2 ML VIAL IVP PRN (23:36)
[2019-01-30] MEDS: SODIUM CHLORIDE 0.9% 1,000 ML IV SCH ×2 (01:07→09:39)
[2019-01-30] MEDS: HYDROcodone/APAP 5-325MG 1 EACH TAB PO PRN ×2 (01:07→09:33)
[2019-01-30] MEDS: KETOROLAC 30 MG/ML 1 ML VIAL IVP PRN (06:31)
[2019-01-30 07:32] LABS: Glucose,Whole Blood 169 mg/dL (75-99)
[2019-01-30] MEDS: INSULIN ASPART (NovoLOG) 100 UNIT/ML VIAL SQ SCH ×2 (07:36→12:52)
[2019-01-30] MEDS: ENOXAPARIN 40 MG/0.4 ML SYRINGE SQ SCH (07:49)
[2019-01-30] MEDS: LACTATED RINGERS 1,000 ML IV SCH (07:49)
[2019-01-30] MEDS: PIOGLITAZONE 15 MG TAB PO SCH (08:30)
[2019-01-30 09:13] LABS: Basophils % (A) 0 %; Eosinophils # (A) 0.1 k/uL (0-0.7); Eosinophils % (A) 1 %; HCT 41.6 % (34.0-46.0); Hypochromasia Marked; Lymphocytes % (A) 35 %; MCH 26.6 pg (25.0-35.0); MCHC 31.3 g/dL (31.0-37.0); Mean Platelet Volume 7.4; Monocytes # (A) 0.2 k/uL (0-1.0); Monocytes % (A) 4 %; Neutrophils # (A) 3.5 k/uL (1.3-7.7); Neutrophils % (A) 59 %; Platelet Count 194 k/uL (150-450); RBC 4.89 m/uL (3.80-5.40); RDW 14.4 % (11.5-15.5); WBC 5.9 k/uL (3.8-10.6)
[2019-01-30 09:29] LABS: African American GFR (CKD) >90 (>60 ml/min/1.73 sqM); Anion Gap 7 mmol/L; Blood Urea Nitrogen 3 mg/dL (7-17); Calcium 7.3 mg/dL (8.4-10.2); Carbon Dioxide 21 mmol/L (22-30); Chloride 110 mmol/L (98-107); Glucose 223 mg/dL (74-99); Non-African American GFR(CKD) >90 (>60 ml/min/1.73 sqM); Potassium 3.8 mmol/L (3.5-5.1); Sodium 138 mmol/L (137-145)
[2019-01-30] MEDS: METOCLOPRAMIDE 5 MG/ML 2 ML VIAL IVP PRN (09:38)
[2019-01-30 09:54] LABS: Hemoglobin A1C 11.1 % (4.0-6.0)
--- NOTE | 2019-01-30 11:55 | P.PN ---
<Sunshine Millard Noemi - Last Filed: 01/30/19 11:51> Subjective Progress Note Date: 01/30/19 CHIEF COMPLAINT: abdominal pain HISTORY OF PRESENT ILLNESS: patient is status post laparoscopic cholecystectomy. Patient examined this morning at the bedside. patient reports nausea this mor cinda but states that has improved in severity. She reports her pain is 7/10. She is receiving [place] and IV toradol. Tolerating clear liquid diet. WBC 5.9. Hemoglobin 13.0. PHYSICAL EXAM: VITAL SIGNS: Reviewed. GENERAL: Well-developed in no acute distress. HEENT: No sclera icterus. Extraocular movements grossly intact. Moist buccal mucosa. Head is atraumatic, normocephalic. ABDOMEN: Soft. Nondistended. Surgical incision sites clean dry intact without drainage or signs of infection. ASHLEY drain noted with minimal serosanguineous fluid. NEUROLOGIC: Alert and oriented. Cranial nerves II through XII grossly intact. ASSESSMENT: 1. Acute cholecystitis, status post laparoscopic cholecystectomy PLAN: 1. Advance diet as tolerated 2. Pain control. Continue [place] 3. Activity as tolerated 4. Incentive spirometry 5. Patient will be re-evaluated this afternoon by Dr. Drew. Likely removal of ASHLEY drain and discharge home today Nurse practitioner note has been reviewed by physician. Signing provider agrees with the documented findings, assessment, and plan of care. Objective - Vital Signs Vital signs: Vital Signs Temp 98.7 F 01/30/19 08:30 Pulse 88 01/30/19 08:30 Resp 16 01/30/19 08:30 BP 106/70 01/30/19 08:30 Pulse Ox 95 01/30/19 08:30 Intake & Output 01/29/19 01/30/19 01/30/19 18:59 06:59 18:59 Intake Total 1100 610 Output Total 50 970 450 Balance 1050 -360 -450 Intake: IV 1100 Oral 610 Output: Drainage 20 Abdomen 20 Urine 950 450 Straight 350 Estimated Blood Loss 50 Other: Voiding Method Toilet - Labs CBC & Chem 7: 01/30/19 08:59 01/30/19 08:59 Labs: Abnormal Lab Results - Last 24 Hours (Table) 01/29/19 01/29/19 01/29/19 Range/Units 08:06 17:48 20:21 Chloride (98-107) mmol/L Carbon Dioxide (22-30) mmol/L BUN (7-17) mg/dL Creatinine (0.52-1.04) mg/dL Glucose (74-99) mg/dL POC Glucose (mg/dL) 135 H 154 H (75-99) mg/dL Hemoglobin A1c 11.1 H (4.0-6.0) % Calcium (8.4-10.2) mg/dL 01/30/19 01/30/19 Range/Units 07:31 08:59 Chloride 110 H (98-107) mmol/L Carbon Dioxide 21 L (22-30) mmol/L BUN 3 L (7-17) mg/dL Creatinine 0.51 L (0.52-1.04) mg/dL Glucose 223 H (74-99) mg/dL POC Glucose (mg/dL) 169 H (75-99) mg/dL Hemoglobin A1c (4.0-6.0) % Calcium 7.3 L (8.4-10.2) mg/dL Microbiology - Last 24 Hours (Table) 01/27/19 22:43 Blood Culture - Preliminary Blood No Growth after 48 hours 01/28/19 12:48 Genital Culture - Preliminary Vaginal Strep agalactiae - (group b) <Henrry Drew - Last Filed: 01/30/19 13:32> Subjective As above. Patient doing well today. Stable for discharge from my standpoint. Follow-up one week. ASHLEY removal today. Objective - Vital Signs Vital signs: Vital Signs Temp 98.2 F 01/30/19 11:40 Pulse 89 01/30/19 11:40 Resp 18 01/30/19 11:40 BP 113/73 01/30/19 11:40 Pulse Ox 98 01/30/19 11:40 Intake & Output 01/29/19 01/30/19 01/30/19 18:59 06:59 18:59 Intake Total 1100 610 Output Total 50 970 450 Balance 1050 -360 -450 Intake: IV 1100 Oral 610 Output: Drainage 20 Abdomen 20 Urine 950 450 Straight 350 Estimated Blood Loss 50 Other: Voiding Method Toilet - Labs CBC & Chem 7: 01/30/19 08:59 01/30/19 08:59 Labs: Abnormal Lab Results - Last 24 Hours (Table) 01/29/19 01/29/19 01/29/19 Range/Units 08:06 17:48 20:21 Chloride (98-107) mmol/L Carbon Dioxide (22-30) mmol/L BUN (7-17) mg/dL Creatinine (0.52-1.04) mg/dL Glucose (74-99) mg/dL POC Glucose (mg/dL) 135 H 154 H (75-99) mg/dL Hemoglobin A1c 11.1 H (4.0-6.0) % Calcium (8.4-10.2) mg/dL 01/30/19 01/30/19 01/30/19 Range/Units 07:31 08:59 12:43 Chloride 110 H (98-107) mmol/L Carbon Dioxide 21 L (22-30) mmol/L BUN 3 L (7-17) mg/dL Creatinine 0.51 L (0.52-1.04) mg/dL Glucose 223 H (74-99) mg/dL POC Glucose (mg/dL) 169 H 151 H (75-99) mg/dL Hemoglobin A1c (4.0-6.0) % Calcium 7.3 L (8.4-10.2) mg/dL Microbiology - Last 24 Hours (Table) 01/27/19 22:43 Blood Culture - Preliminary Blood No Growth after 48 hours 01/28/19 12:48 Genital Culture - Preliminary Vaginal Strep agalactiae - (group b) Assessment and Plan (1) Acute cholecystitis Current Visit: Yes Status: Acute Code(s): K81.0 - ACUTE CHOLECYSTITIS SNOMED Code(s): 71513981
[2019-01-30 12:02] VITALS: BP 113/73; PULSE 89; RESP 18; TEMP 98.2
[2019-01-30 12:44] LABS: Glucose,Whole Blood 151 mg/dL (75-99)
--- NOTE | 2019-01-30 13:31 | P.DS ---
Providers Date of admission: 01/29/19 11:05 Expected date of discharge: 01/30/19 Attending physician: Mikal Wong Consults: 01/28/19 10:51 Consult Physician Routine Consulting Provider: Shaun Adair Consult Reason/Comments: kidney stone Do you want consulting provider notified?: Yes 01/28/19 19:26 Consult Physician Routine Consulting Provider: Henrry Drew Consult Reason/Comments: biliary hyperkinesia Do you want consulting provider notified?: Yes Primary care physician: Melo Cotter Dictation on the discharge summary date of service 01/30/2019. Dictation by Dr. Judith Reyes [facility]. Final diagnosis: #1 acute cholecystitis, associated with hyperkinesia by HIDA scan with ejection, and sludge. Status post laparoscopic cholecystectomy by Dr. Vail. #2 severe abdominal pain in the right upper quadrant with positive McBurney point and associated with nausea vomiting, fatty, fair trial femaleertile,female. #3 diabetes mellitus type 2 insulin-dependent. #4 status post hysterectomy, complain of vaginal secretion, genital culture from the vagina indicating strep agalactiae, group B treated with MetroGel topical application twice a day prescription given. #5 right kidney nephrolithiasis 2 mm not the etiology of the severe pain that she had as well as seen by Dr. Ruth Lao urology to follow with him in 2 weeks #6 one episode of hypoglycemia and we held the long-acting insulin and patient was at that time not eating because of the pain of the right upper quadrant however now her blood sugar is comfortable. Consultation: Dr. Adair urology, Dr. Vail general surgeon. ER presentation: 44 years old female presented with complaint of the right flank pain and radiated to the back. She has associated nausea and vomiting and that pain started 4 hour prior to the admission and she denied any shortness of breath. Hospital course: This patient admitted to the floor in the pediatric section, patient examined evaluated and felt that it is more of gallbladder than the small stone subseq uently the CAT scan that has been done in the ER reviewed, I did order ultrasound of the abdomen was showing sludge stools abdominal pain is persistent, subsequently we order a HIDA scan with ejection fraction indicating her ejection fraction 83% which is elevated indicating biliary hyperkinesia, Patient already seen by Dr. Gia eldridge for Dr. Dillon and he felt that the patient to swallow of stone to control the pain and he cleared her up from the his point of view as urologist. We consulted with the general surgeon Dr. Vail who took her immediately to the operative room which he did laparoscopic cholecystectomy. Patient did well and we'll continue the antibiotic. And she was already on Levaquin 750 mg IV piggyback until today she is having also Rob drainage per Dr. Vail. The discharge exam: Patient is conscious alert oriented she is still sore from the surgery. I did advise her with just regular Tylenol no narcotic and it is up to Dr. Drew if he need to use narcotic however a prescription of ibuprofen is given. And also prescription for for metronidazole 0.75% cream 1 application intravaginally anal twice a day until seen in the office. Her HEENT: Head normocephalic and atraumatic, pupil was equal reactive, oropharynx negative. Neck was supple no JVD no thyromegaly no lymphadenopathy trachea midline. Chest was clear to auscultation and percussion no wheezes no rhonchi. Heart regular sinus rhythm. Abdomen is soft positive bowel sound and she had recent laparoscopic cholecystectomy by Dr. Vail still have some gases. No nausea no vomiting. Extremities no edema and positive pulses. Neurologically: No lateralizing sign moving 4 extremities, able to walk no cranial nerve deficit. Psychiatry stable mood. Assessment and plan: #1 patient will be discharged today after clearance from Dr. Vail for her surgical intervention with the laparoscopic cholecystectomy and the [place] placement. Diabetes mellitus type 2 has been controlled well and the patient will resume her insulin at home and Accu-Chek as well. #3. Follow-up number a Dr. Graff urology in [address] Vail surgeon for her laparoscopic cholecystectomy. Number c follow-up with Dr. Wong in 1 week. Follow-up with Dr. Melo Cotter as needed. Patient Condition at Discharge: Fair Plan - Discharge Summary Discharge Rx Participant: Yes New Discharge Prescriptions: New metroNIDAZOLE 0.75% CREAM [Metrocream] 1 applic TOPICAL BID #60 applic Ibuprofen [Motrin] 400 mg PO Q6HR PRN #20 tab PRN Reason: Mild Pain Or Fever > 100.5 Continue Insulin Glargine,Hum.rec.anlog [Mayank Chavarria U-100] 8 unit SQ HS Insulin Lispro [Admelog Solostar] 6 unit SQ AC-TID Pioglitazone HCl [Actos] 15 mg PO DAILY Discharge Medication List Insulin Glargine,Hum.rec.anlog [Ldaglzunilda Taylorpen U-100] 8 unit SQ HS 06/02/18 [History] Insulin Lispro [Admelog Solostar] 6 unit SQ AC-TID 01/27/19 [History] Pioglitazone HCl [Actos] 15 mg PO DAILY 01/27/19 [History] Ibuprofen [Motrin] 400 mg PO Q6HR PRN #20 tab 01/30/19 [Rx] metroNIDAZOLE 0.75% CREAM [Metrocream] 1 applic TOPICAL BID #60 applic 01/30/19 [Rx] Follow up Appointment(s)/Referral(s): Henrry Drew MD [Medical Doctor] - 1 Week Melo Cotter MD [Primary Care Provider] - 1-2 days Mikal Wong MD [STAFF PHYSICIAN] - 1 Week Activity/Diet/Wound Care/Special Instructions: No driving while taking [place] No lifting over 10 pounds You may shower. No soaking or tub baths Very light activity until you are reevaluated at your follow up appointment with your surgeon Discharge Disposition: HOME SELF-CARE
== END 2019-01-30 14:50 | disposition home or self-care (01) ==
LOC: EC 16:00 → 6PED 01-28 00:01 → OBSVTOIN 01-29 11:05 → INTOOBSV 01-29 11:05 → UNDODISIN 01-30 14:50
PROVIDERS: ADMIT Internal Medicine; ATTEND Internal Medicine
PROC: 0FT44ZZ Resection of Gallbladder, Percutaneous Endoscopic Approach (ICD-10-PCS; principal; 2019-01-29 12:00)
DX: K81.2 Acute cholecystitis with chronic cholecystitis (principal); E11.649 Type 2 diabetes mellitus with hypoglycemia without coma; G43.909 Migraine, unspecified, not intractable, without status migrainosus; B37.3 Candidiasis of vulva and vagina; E66.9 Obesity, unspecified; Z68.30 Body mass index [BMI] 30.0-30.9, adult; F32.9 Major depressive disorder, single episode, unspecified; N20.0 Calculus of kidney; F41.9 Anxiety disorder, unspecified; G89.29 Other chronic pain; M54.2 Cervicalgia; Z79.4 Long term (current) use of insulin; M19.90 Unspecified osteoarthritis, unspecified site; Z88.1 Allergy status to other antibiotic agents; Z90.710 Acquired absence of both cervix and uterus; Z98.890 Other specified postprocedural states; Z98.1 Arthrodesis status; Z87.442 Personal history of urinary calculi; Z87.19 Personal history of other diseases of the digestive system; Z80.7 Family history of other malignant neoplasms of lymphoid, hematopoietic and related tissues; Z80.0 Family history of malignant neoplasm of digestive organs
CPT/HCPCS: 47562; 96361 ×3; 96366 ×2; 96375 ×3; 96376 ×2; 96365; 99285; 36415; 88304; 80053; 80048 ×3; 83605; 83690; 85025 ×4; 81001; 87040; 87324; 87070; 87205; 83630; 83036; 76700; 74177; 78227; G0378 ×4; A9537; J2250; J2270; J1200; J2710; J2765 ×2; J2405 ×3; J2805; J1956 ×3; J2001; J3010; J1885 ×3; J1170; J0330; J2704; Q9967

== ENCOUNTER → 2019-02-23 | Outpatient (CLI) | payer OTHER ==
[2019-02-23 10:56] LABS: Basophils % (A) 0 %; Eosinophils # (A) 0.1 k/uL (0-0.7); Eosinophils % (A) 1 %; HCT 43.9 % (34.0-46.0); HGB 13.7 gm/dL (11.4-16.0); Hypochromasia Slight; Lymphocytes # (A) 2.2 k/uL (1.0-4.8); Lymphocytes % (A) 23 %; MCH 26.2 pg (25.0-35.0); MCHC 31.3 g/dL (31.0-37.0); Mean Platelet Volume 7.3; Monocytes # (A) 0.3 k/uL (0-1.0); Monocytes % (A) 3 %; Neutrophils # (A) 6.5 k/uL (1.3-7.7); Neutrophils % (A) 71 %; Platelet Count 263 k/uL (150-450); RBC 5.23 m/uL (3.80-5.40); RDW 14.2 % (11.5-15.5); WBC 9.2 k/uL (3.8-10.6)
[2019-02-23 17:21] LABS: Hemoglobin A1C 10.8 % (4.0-6.0)
[2019-02-23 18:39] LABS: African American GFR (CKD) 103.9 (60.0-200.0); Anion Gap 12.6 mmol/L (4.00-12.00); BUN/Creat Ratio 18.75 Ratio (12.00-20.00); Carbon Dioxide 20.4 mmol/L (21.6-31.8); Potassium 4.4 mmol/L (3.5-5.5)
== END | disposition home or self-care (01) ==
LOC: LABWHC1 09:57
PROVIDERS: ATTEND Internal Medicine
DX: E11.9 Type 2 diabetes mellitus without complications (principal)
CPT/HCPCS: 36415; 80048; 83036; 85025

== ENCOUNTER → 2019-03-07 | Outpatient (CLI) | payer OTHER ==
[2019-03-07 14:42] VITALS: BP 110/75; PULSE 107; RESP 18; TEMP 98.1; BMI 29.2
--- NOTE | 2019-03-07 17:25 | P.HPOB ---
History of Present Illness H&P Date: 03/07/19 Chief Complaint: The patient is here for her routine gynecologic exam. This is a 44-year-old with an LMP of 2014. The patient is here to establish with this office. She is status post vaginal hysterectomy for benign abnormal bleeding. Her last pelvic exam was one year ago. She states she believes she has had a yeast infection for about 3 months. She had previously taken antibiotics for a tooth infection and she also takes baths about twice a week. She has been experiencing pruritus with burning in the vagina and vulvar areas. She also has noticed a yellowish discharge. She is unsure if it is thick or thin. She was treated with metronidazole vaginal gel about 1 month ago when she was in the hospital for a cholecystectomy. She states they were unable to insert a Rosenberg catheter because it was so inflamed. The metronidazole gel burned when she applied it. Review of Systems The patient's weight has been stable over the last year. She denies respiratory, cardiac, or G.I. problems. Past Medical History Past Medical History: Diabetes Mellitus, Osteoarthritis (OA) Additional Past Medical History / Comment(s): Type II diabetes requiring insulin, CHRONIC NECK PAIN AND MIGRAINE. 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 History of Any Multi-Drug Resistant Organisms: None Reported Past Surgical History: Bladder Surgery, Cholecystectomy, Hysterectomy, Orthopedic Surgery Additional Past Surgical History / Comment(s): Bladder sling procedure 2018. Vaginal hysterectomy 2014. Cervical fusion. RIGHT KNEE ARTHROSCOPIC X2, LEFT ARTHROSCOPIC KNEE X2, Past Anesthesia/Blood Transfusion Reactions: Previous Problems w/ Anesthesia Additional Past Anesthesia/Blood Transfusion Reaction / Comment(s): DIFFICULT TO WAKE UP WITH NECK SURGERY Past Psychological History: Anxiety, Depression Additional Psychological History / Comment(s): NO MEDS TAKEN Smoking Status: Never smoker Past Alcohol Use History: None Reported Additional Past Alcohol Use History / Comment(s): Previously socially drink alcohol, but quit. Past Drug Use History: None Reported Additional History: The patient was a and has been twice. She has been with her boyfriend since 2014. They do not live together. She does not work outside the home. - Past Family History Mother Family Medical History: Cancer Additional Family Medical History / Comment(s): RECTAL CANCER. Maternal grandmother had colon cancer. Father Family Medical History: Cancer Additional Family Medical History / Comment(s): Lymphoma Medications and Allergies Home Medications Medication Instructions Recorded Confirmed Type Insulin Glargine,Hum.rec.anlog 8 unit SQ HS 06/02/18 03/07/19 History [Basaglar Kwikpen U-100] Insulin Lispro [Admelog Solostar] 6 unit SQ AC-TID 01/27/19 03/07/19 History Pioglitazone HCl [Actos] 15 mg PO DAILY 01/27/19 03/07/19 History Ibuprofen [Motrin] 400 mg PO Q6HR PRN #20 tab 01/30/19 03/07/19 Rx Topiramate [Topamax] 25 mg PO BID 03/07/19 03/07/19 History Allergies Allergy/AdvReac Type Severity Reaction Status Date / Time cephalexin monohydrate AdvReac Mild Nausea & Verified 03/07/19 14:36 [From Keflex] Vomiting Exam Vital Signs Temp Pulse Resp BP Pulse Ox 03/07/19 14:38 98.1 F 107 H 18 110/75 99 Intake and Output 03/07/19 03/07/19 03/07/19 06:59 14:59 22:59 Other: Weight 65.771 kg Height 4'11", weight 145 pounds, BMI 29.3. This is a well-nourished short statured white female who is alert and oriented times 3 in no acute distress. HEENT: Within normal limits. NECK: Supple without mass or thyromegaly. CHEST AND LUNGS: Clear to auscultation. HEART: Regular rate and rhythm. BREASTS: Are without mass or discharge. AXILLARY EXAM: Negative for adenopathy. BACK: Negative for CVA tenderness. ABDOMEN: Soft, nontender, without palpable masses. PELVIC EXAM: External genitalia appears reveals moderate generalized erythema without focal lesions or lacerations. Vagina appears normal with no unusual discharge or odor noted. There is no evidence of prolapse. Bimanual examination is negative for mass or tenderness. RECTAL EXAM: Rectal exam is negative for mass or tenderness and is negative for occult blood. EXTREMITIES: Nontender. Saline wet mount is negative for trichomonas or clue cells. GURVINDER what mount shows one hyphae and is otherwise negative. IMPRESSION: 1. 44-year-old female who is status post vaginal hysterectomy for benign reasons with acute vulvitis. This may have originated with bacterial vaginosis or malia vaginitis based on her description of symptoms. No current evidence of significant bacterial vaginosis. Possible mild malia vaginitis. 2. Vaginal discharge by the patient's description with no evidence of significant vaginal discharge on examination. PLAN: 1. Pap smears have been discontinued. 2. Self breast awareness was discussed with the patient. 3. GC and Chlamydia testing was obtained from the vagina. 4. Diflucan 150 mg PO times 1. Two refills will be given that she can use PRN. 5. Kenalog 0.1% cream BID to the external vulva PRN for vulvar irritation. 6. I have stressed the importance of not over washing and to use small amounts of soapy water to clean the vulva. She can also use a small amount of petroleum jelly at times other than when she applies the Kenalog cream as a barrier layer once daily. She will abstain from sexual activity for at least 2 weeks so the skin can heal. The 2 prescriptions will be sent electronically to [facility] pharmacy on in [place]. 7. She is scheduled for a screening mammogram in approximately one month. The order slope was given to the patient for this. 8. She was advised to return in one year for her annual well woman exam. She will also return if her symptoms are not improving and PRN.
== END | disposition home or self-care (01) ==
LOC: WWCWWP 14:23
PROVIDERS: ATTEND Obstetrics & Gynecology
DX: Z53.9 Procedure and treatment not carried out, unspecified reason (principal)

== ENCOUNTER → 2019-04-03 | Outpatient (CLI) | payer OTHER ==
--- NOTE | 2019-04-05 08:51 | MM ---
Reason for exam: screening (asymptomatic). Last mammogram was performed 2 years and 5 months ago. History: Family history of breast cancer in maternal grandmother. Physical Findings: A clinical breast exam by your physician is recommended on an annual basis and results should be correlated with mammographic findings. MG Screening Mammo w CAD Bilateral CC and MLO view(s) were taken. Prior study comparison: November 13, 2016, bilateral MG screening mammo w CAD. The breast tissue is heterogeneously dense. This may lower the sensitivity of mammography. No significant changes when compared with prior studies. ASSESSMENT: Negative, BI-RAD 1 RECOMMENDATION: Routine screening mammogram of both breasts in 1 year.
== END ==
LOC: RADMAMWWP 13:32
PROVIDERS: ATTEND Obstetrics & Gynecology
DX: Z12.31 Encounter for screening mammogram for malignant neoplasm of breast (principal)
CPT/HCPCS: 77067

== ENCOUNTER → 2019-04-07 | Outpatient (CLI) | payer OTHER ==
--- NOTE | 2019-04-07 14:14 | XR ---
EXAMINATION TYPE: XR chest 2V DATE OF EXAM: 04/07/2019 COMPARISON: Prior chest x-ray 05/12/2017 HISTORY: Bronchitis, cough, pneumonia TECHNIQUE: Frontal and lateral views of the chest are obtained. FINDINGS: There is no focal air space opacity, pleural effusion, or pneumothorax seen. The cardiac silhouette size is within normal limits. Postop changes are noted to the lower cervical spine. Surg ical clips are present in the upper abdomen. There is bronchial wall thickening. The osseous structur es are intact. IMPRESSION: Correlate for bronchitis, reactive airways disease, follow-up as indicated
[2019-04-07 15:01] LABS: Basophils # (A) 0.1 k/uL (0-0.2); Basophils % (A) 1 %; Eosinophils # (A) 0.1 k/uL (0-0.7); Eosinophils % (A) 2 %; HCT 44.2 % (34.0-46.0); Lymphocytes # (A) 2.7 k/uL (1.0-4.8); Lymphocytes % (A) 33 %; MCH 26.3 pg (25.0-35.0); MCHC 31.7 g/dL (31.0-37.0); MCV 82.8 fL (80.0-100.0); Mean Platelet Volume 7.5; Monocytes # (A) 0.3 k/uL (0-1.0); Monocytes % (A) 4 %; Neutrophils # (A) 4.8 k/uL (1.3-7.7); Neutrophils % (A) 59 %; Platelet Count 288 k/uL (150-450); RBC 5.33 m/uL (3.80-5.40); RDW 15.3 % (11.5-15.5); WBC 8.2 k/uL (3.8-10.6)
[2019-04-07 16:33] LABS: Erythrocyte Sedimentation Rate 8 mm/hr (0-20)
== END | disposition home or self-care (01) ==
LOC: LABWHC1 13:22
PROVIDERS: ATTEND Internal Medicine
DX: J40 Bronchitis, not specified as acute or chronic (principal)
CPT/HCPCS: 36415; 71046; 85025; 85652

== ENCOUNTER → 2019-05-30 | Outpatient (CLI) | payer OTHER | END | disposition home or self-care (01) | LOC: LABWHC1 11:10 | PROVIDERS: ATTEND Internal Medicine | DX: E11.65 Type 2 diabetes mellitus with hyperglycemia (principal) | CPT/HCPCS: 36415; 83036 ==

== ENCOUNTER → 2019-08-10 | Outpatient (CLI) | payer OTHER ==
[2019-08-10 16:02] LABS: Basophils % (A) 0 %; Eosinophils % (A) 1 %; HCT 43.6 % (34.0-46.0); HGB 13.9 gm/dL (11.4-16.0); Hypochromasia Slight; Lymphocytes % (A) 25 %; MCH 26.9 pg (25.0-35.0); MCHC 31.8 g/dL (31.0-37.0); MCV 84.7 fL (80.0-100.0); Mean Platelet Volume 8.2; Monocytes # (A) 0.2 k/uL (0-1.0); Monocytes % (A) 3 %; Neutrophils # (A) 5.6 k/uL (1.3-7.7); Neutrophils % (A) 70 %; Platelet Count 210 k/uL (150-450); RBC 5.15 m/uL (3.80-5.40); RDW 13.6 % (11.5-15.5)
--- NOTE | 2019-08-10 16:26 | XR ---
EXAMINATION TYPE: XR chest 2V DATE OF EXAM: 08/10/2019 COMPARISON: 04/07/2019 TECHNIQUE: PA and lateral views submitted. HISTORY: Cough FINDINGS: The lungs are clear and there is no pneumothorax, pleural effusion, or focal pneumonia. Postsurgica l change overlying the cervical spine. No overt failure. Surgical clips in the abdomen. IMPRESSION: 1. No acute process.
--- NOTE | 2019-08-10 16:30 | XR ---
EXAMINATION TYPE: XR Hip Complete RT DATE OF EXAM: 08/10/2019 COMPARISON: NONE HISTORY: Pain TECHNIQUE: 2 views submitted FINDINGS: There is no evidence of erosive change or acute fracture. Mild hypertrophic change of the acetabulum. IMPRESSION: 1. No evidence of acute fracture or dislocation. 2. Mild hypertrophic change of the acetabulum can occasionally be associated with femoral acetabular impingement. Correlate with MRI as clinically warranted.
== END | disposition home or self-care (01) ==
LOC: LABWHC1 14:55
PROVIDERS: ATTEND Internal Medicine
DX: R05 Cough (principal); M25.551 Pain in right hip; R19.7 Diarrhea, unspecified; J40 Bronchitis, not specified as acute or chronic
CPT/HCPCS: 36415; 71046; 73502; 85025

== ENCOUNTER → 2019-08-24 | Outpatient (CLI) | payer OTHER | END | disposition home or self-care (01) | LOC: LABWHC1 16:41 | PROVIDERS: ATTEND Internal Medicine | DX: E03.9 Hypothyroidism, unspecified (principal); E53.8 Deficiency of other specified B group vitamins | CPT/HCPCS: 36415; 82607; 84439; 84443 ==

== ENCOUNTER → 2020-01-17 | Outpatient (CLI) | payer OTHER ==
[2020-01-17 10:21] VITALS: BP 89/61; PULSE 88; RESP 20; TEMP 97.8
--- NOTE | 2020-01-17 11:37 | P.HPOB ---
History of Present Illness H&P Date: 01/17/20 Chief Complaint: The patient is here for her routine gynecologic exam. This is a 44-year-old with an LMP of 2015. She is status post vaginal hysterectomy for benign reasons. The patient has been experiencing problems with vulvar discomfort and some bleeding from the vulva. She states with sexual intercourse it is very uncomfortable and feels dry and tight. She also notices that at the perineum where she had a previous episiotomy years ago, she can have bleeding after sexual intercourse or even with wiping. She has tried a lubricant without any improvement. She has noticed these changes for about the last 6 months. She has also noticed a significant increase in hot flashes during the past 6 months and this seems to be worse during stressful times. She states she has had many stressful things going on in her life including the COVID pandemic as well as the loss of her mother recently. She states her relationship with her boyfriend has been good and they have not been having any relationship problems. Review of Systems The patient has lost 5 pounds over the last year. She denies respiratory, cardiac, or G.I. problems. Past Medical History Past Medical History: Diabetes Mellitus, Osteoarthritis (OA) Additional Past Medical History / Comment(s): Type II diabetes requiring insulin, CHRONIC NECK PAIN AND MIGRAINE. 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 History of Any Multi-Drug Resistant Organisms: None Reported Past Surgical History: Bladder Surgery, Cholecystectomy, Hysterectomy, Orthoped ic Surgery Additional Past Surgical History / Comment(s): Bladder sling procedure 2018. Vaginal hysterectomy 2014. Cervical fusion. RIGHT KNEE ARTHROSCOPIC X2, LEFT ARTHROSCOPIC KNEE X2, Past Anesthesia/Blood Transfusion Reactions: Previous Problems w/ Anesthesia Additional Past Anesthesia/Blood Transfusion Reaction / Comment(s): DIFFICULT TO WAKE UP WITH NECK SURGERY Past Psychological History: Anxiety, Depression Additional Psychological History / Comment(s): NO MEDS TAKEN Smoking Status: Never smoker Past Alcohol Use History: Occasional (3 per month) Additional Past Alcohol Use History / Comment(s): Previously socially drink alcohol, but quit. Past Drug Use History: None Reported Additional History: She is a and has been twice. She has been with her current boyfriend since 2014 and do not live together. She does not work outside of the home. - Past Family History Mother Family Medical History: Cancer Additional Family Medical History / Comment(s): RECTAL CANCER. Maternal grandmother had colon cancer. Father Family Medical History: Cancer Additional Family Medical History / Comment(s): Lymphoma Medications and Allergies Home Medications Medication Instructions Recorded Confirmed Type Insulin Glargine,Hum.rec.anlog 8 unit SQ HS 06/02/18 01/17/20 History [Basaglar Kwikpen U-100] Insulin Lispro [Admelog Solostar] 6 unit SQ AC-TID 01/27/19 01/17/20 History Pioglitazone HCl [Actos] 15 mg PO DAILY 01/27/19 01/17/20 History Ibuprofen [Motrin] 400 mg PO Q6HR PRN #20 tab 01/30/19 01/17/20 Rx Topiramate [Topamax] 25 mg PO BID 03/07/19 01/17/20 History Allergies Allergy/AdvReac Type Severity Reaction Status Date / Time cephalexin monohydrate AdvReac Mild Nausea & Verified 01/17/20 10:14 [From Keflex] Vomiting Exam Vital Signs Temp Pulse Resp BP Pulse Ox 01/17/20 10:15 97.8 F 88 20 89/61 97 Intake and Output 01/16/20 01/17/20 01/17/20 22:59 06:59 14:59 Other: Weight 63.503 kg Height 4 feet 11-1/2 inches, weight 140 pounds, BMI 27.8. This is a well-developed well-nourished white female who is alert and oriented times 3 in no acute distress. HEENT: Within normal limits. NECK: Supple without mass or thyromegaly. CHEST AND LUNGS: Clear to auscultation. HEART: Regular rate and rhythm. BREASTS: Are without mass or discharge. AXILLARY EXAM: Negative for adenopathy. BACK: Negative for CVA tenderness. ABDOMEN: Soft, nontender, without palpable masses. PELVIC EXAM: External genitalia reveals generalized erythema without focal lesions. There is also mild atrophy noted in the external genitalia. There is no vulvar pallor. Vagina appears normal with mild atrophy. There is small amount of creamy thick off white discharge in the vagina without odor. There is no evidence of prolapse. Bimanual examination is negative for mass or tenderness. RECTAL EXAM: Rectal exam is negative for mass or tenderness and is negative for occult blood. EXTREMITIES: Nontender. IMPRESSION: 1. 44-year-old perimenopausal female who is status post vaginal hysterectomy for benign reasons with mild genital atrophy and generalized vulvar erythema. 2. Slight vaginal discharge, possible Marta vaginitis. 3. Dyspareunia with vaginal dryness and tightness possibly associated with perimenopausal genital atrophy. This can be associated with some tearing of the vulva with vulvar bleeding. 4. Mild vasomotor symptoms probably secondary to perimenopausal change. PLAN: 1. Pap smears have been discontinued. 2. Self breast awareness was discussed with the patient. 3. Affirm testing for marta, Gardnerella, and Trichomonas was obtained from the vagina. 4. Trial of Premarin vaginal cream 1-2 g into the vagina twice weekly. She can also apply a small amount to the vulva and perineum. The electronic prescription will be sent to [facility] pharmacy on . 5. Osteoporosis prevention was discussed. I have stressed the importance of adequate calcium, vitamin D and regular exercise. Recommended amounts of calcium and vitamin D were also discussed. 6. She was advised to return in one year for her annual well woman exam and as needed.
[2020-01-18 05:31] LABS: Gardnerella Positive (Negative); Source Vagina; Trichomonas Negative (Negative)
== END | disposition home or self-care (01) ==
LOC: WWCWWP 10:06
PROVIDERS: ATTEND Obstetrics & Gynecology
DX: N76.2 Acute vulvitis (principal); N89.8 Other specified noninflammatory disorders of vagina
CPT/HCPCS: 87480; 87510; 87660

== ENCOUNTER → 2020-01-17 | Outpatient (CLI) | payer OTHER | END | disposition home or self-care (01) | LOC: LABWHC1 11:22 | PROVIDERS: ATTEND Internal Medicine | DX: E11.65 Type 2 diabetes mellitus with hyperglycemia (principal) | CPT/HCPCS: 36415; 82947; 83519; 84681 ==

== ENCOUNTER 2020-05-13 09:16 | Day surgery (SDC) | payer OTHER ==
[2020-05-09 13:18] VITALS: BMI 28.3
[~2020-05-13 09:16] MED LIST changes: -LIDOCAINE 1% 20 ML VIAL (10MG/ML) FOR IV START INTRADERMA PRN
[2020-05-13 09:43] VITALS: TEMP 98
[2020-05-13] MEDS ORDERED: LIDOCAINE 1% (10MG/ML) FOR IV START INTRADERMA ONE (10:00)
[2020-05-13 10:01] LABS: Glucose,Whole Blood 143 mg/dL (75-99)
[2020-05-13] MEDS ORDERED: ONDANSETRON 4 MG/2 ML VIAL ONE (10:39)
[2020-05-13] MEDS ORDERED: PROPOFOL 10 MG/ML 20 ML VIAL IV ONE (10:39)
--- NOTE | 2020-05-13 11:02 | P.PCN ---
Date of Procedure: 05/13/20 Procedure(s) Performed: BRIEF HISTORY: Patient is a 45-year-old pleasant white female scheduled for an elective colonoscopy as a part of evaluation of lower abdominal pain and change in bowel habits for the last several months duration. Pain is mostly in the right upper quadrant and occasionally right lower quadrant area associated with alternating diarrhea and constipation. She also has intermittent rectal bleeding. PROCEDURE PERFORMED: Colonoscopy. PREOPERATIVE DIAGNOSIS: Lower abdominal pain and change in bowel habits. IV sedation per Anesthesia. PROCEDURE: After informed consent was obtained, the patient, was brought into the endoscopy unit. IV sedation was administered by Anesthesia under continuous monitoring. Digital rectal examination was normal. Initially the Olympus CF-160 flexible video colonoscope was then inserted in the rectum, gradually advanced into the cecum without any difficulty. Careful examination was performed as the scope was gradually being withdrawn. Ileocecal valve and the appendiceal orifice were visualized and appeared normal. Terminal ileum appeared normal. Prep was excellent. Mucosa of the cecum, ascending colon, transverse colon, descending colon, sigmoid colon, and rectum appeared normal. Retroflexion was performed in the rectum and no lesions were seen. The patient tolerated the procedure well. IMPRESSION: Normal-appearing colon from rectum to cecum with no evidence of colorectal neoplasia. RECOMMENDATIONS: Findings of this examination were discussed with the patient [employer] family. She was advised to be a high-fiber diet and take fiber supplements a regular basis and she'll be seen in office in 3-4 weeks..
[2020-05-13 11:28] VITALS: BP 100/71; PULSE 83; RESP 16
== END 2020-05-13 11:56 | disposition home or self-care (01) ==
LOC: ORWHC2ENDO 09:16
PROVIDERS: ATTEND Internal Medicine Gastroenterology
DX: R10.31 Right lower quadrant pain (principal); R10.11 Right upper quadrant pain; R19.7 Diarrhea, unspecified; K59.00 Constipation, unspecified; K62.5 Hemorrhage of anus and rectum; K08.89 Other specified disorders of teeth and supporting structures; E11.43 Type 2 diabetes mellitus with diabetic autonomic (poly)neuropathy; K31.84 Gastroparesis; Z79.1 Long term (current) use of non-steroidal anti-inflammatories (NSAID); Z79.4 Long term (current) use of insulin; Z88.1 Allergy status to other antibiotic agents; Z97.2 Presence of dental prosthetic device (complete) (partial); Z98.890 Other specified postprocedural states; Z90.49 Acquired absence of other specified parts of digestive tract; Z90.710 Acquired absence of both cervix and uterus
CPT/HCPCS: 45378; J2405; J2704

== ENCOUNTER → 2020-05-21 | Outpatient (CLI) | payer OTHER ==
[2020-05-22 01:29] LABS: Microalbumin Creatinine Ratio <30 mg/g Creat (0-30); Urine Creatinine 22.4 mg/dL
[2020-05-22 03:01] LABS: Chol/HDL Ratio 2.13; LDL Cholesterol,Calculated 55.8 mg/dL (0.0-131.0); VLDL Calculation 30.2 mg/dL (5.00-40.00)
[2020-05-22 03:17] LABS: Hemoglobin A1C 9.1 % (4.0-6.0)
== END | disposition home or self-care (01) ==
LOC: LABWHC1 13:46
PROVIDERS: ATTEND Internal Medicine
DX: E11.65 Type 2 diabetes mellitus with hyperglycemia (principal)
CPT/HCPCS: 36415; 80061; 82043; 82570; 83036

== ENCOUNTER 2020-06-22 14:09 | Emergency (ER) | payer OTHER ==
[2020-06-22 14:24] VITALS: PULSE 97; RESP 18
[2020-06-22] MEDS ORDERED: HYDROmorphone 0.5 MG/0.5 ML SYRINGE IVP STA (14:53)
[2020-06-22] MEDS ORDERED: ONDANSETRON 4 MG/2 ML VIAL IVP STA ×2 (14:53→17:22)
[2020-06-22] MEDS ORDERED: KETOROLAC 15 MG/ML 1 ML VIAL IVP STA (14:53)
[2020-06-22] MEDS ORDERED: SODIUM CHLORIDE 0.9% 1,000 ML IV STA (14:53)
--- NOTE | 2020-06-22 14:55 | ED ---
Abdominal Pain HPI - General Chief Complaint: Abdominal Pain Stated Complaint: Kidney pain Time Seen by Provider: 06/22/20 14:46 Source: patient Mode of arrival: ambulatory Limitations: no limitations - History of Present Illness Initial Comments: 45-year-old female patient presents to the emergency department today for evaluation of bilateral flank pain. Patient states the pain started on 06/13/2020. States the pain is been constant and worsening since. She does report nausea with no vomiting. States she's had several episodes of diarrhea daily. States she is having bilateral suprapubic pain. Denies any fever or chills. States she does have a history of kidney stones but the pain several lasted this long before. States she is having urinary hesitancy. Denies any hematuria, dysuria, or urinary urgency. Patient denies any recent rash, cough, shortness of breath, chest pain, numbness, tingling, dizziness, weakness, headache, visual changes, or any other complaints. - Related Data Home Medications Medication Instructions Recorded Confirmed Insulin Glargine,Hum.rec.anlog 8 unit SQ HS 06/02/18 06/22/20 [Basaglar Kwikpen U-100] Insulin Lispro [Admelog Solostar] See Protocol SQ AC-TID 01/27/19 06/22/20 Topiramate [Topamax] 25 mg PO BID 03/07/19 06/22/20 Ertugliflozin Pidolate [Steglatro] 15 mg PO DAILY 05/09/20 06/22/20 Albuterol Inhaler [Ventolin Hfa 2 puff INHALATION RT-QID PRN 06/22/20 06/22/20 Inhaler] Pioglitazone [Actos] 30 mg PO DAILY 06/22/20 06/22/20 SUMAtriptan succinate [Imitrex] 25 mg PO BID PRN 06/22/20 06/22/20 Allergies Allergy/AdvReac Type Severity Reaction Status Date / Time cephalexin monohydrate AdvReac Mild Nausea & Verified 06/22/20 16:59 [From Keflex] Vomiting Review of Systems ROS Statement: Those systems with pertinent positive or pertinent negative responses have been documented in the HPI. ROS Other: All systems not noted in ROS Statement are negative. Past Medical History Past Medical History: Diabetes Mellitus, Osteoarthritis (OA) Additional Past Medical History / Comment(s): Type II diabetes requiring insulin, CHRONIC NECK PAIN AND MIGRAINE. SEASONAL ALLERGIES History of Any Multi-Drug Resistant Organisms: None Reported Past Surgical History: Bladder Surgery, Cholecystectomy, Hysterectomy, Orthopedic Surgery Additional Past Surgical History / Comment(s): Bladder sling procedure 2018. Vaginal hysterectomy 2015. Cervical fusion. RIGHT KNEE ARTHROSCOPIC X2, LEFT ARTHROSCOPIC KNEE X2, Past Anesthesia/Blood Transfusion Reactions: Previous Problems w/ Anesthesia, Motion Sickness, Postoperative Nausea & Vomiting (PONV) Additional Past Anesthesia/Blood Transfusion Reaction / Comment(s): DIFFICULT TO WAKE UP WITH NECK SURGERY, POST OP NAUSEA. DIFFICULT IV START Past Psychological History: Anxiety, Depression Smoking Status: Never smoker Past Alcohol Use History: None Reported Past Drug Use History: None Reported - Past Family History Mother Family Medical History: Cancer Additional Family Medical History / Comment(s): RECTAL CANCER. Maternal grandmother had colon cancer. Father Family Medical History: Cancer Additional Family Medical History / Comment(s): Lymphoma General Exam Limitations: no limitations General appearance: alert, in no apparent distress, other (This is a well- developed, well-nourished adult female patient in no acute distress. Vital signs upon presentation are temperature 98.0F, pulse 97, respirations 18, blood pressure 106/67, pulse ox 97% on room air.) ENT exam: Present: normal exam, normal oropharynx, mucous membranes moist Respiratory exam: Present: normal lung sounds bilaterally. Absent: respiratory distress, wheezes, rales, rhonchi, stridor Cardiovascular Exam: Present: regular rate, normal rhythm, normal heart sounds. Absent: systolic murmur, diastolic murmur, rubs, gallop, clicks GI/Abdominal exam: Present: soft, normal bowel sounds. Absent: distended, tenderness, guarding, rebound, rigid Back exam: Present: normal inspection, CVA tenderness (R), CVA tenderness (L) Neurological exam: Present: alert, oriented X3, CN II-XII intact Psychiatric exam: Present: normal affect, normal mood Skin exam: Present: warm, dry, intact, normal color. Absent: rash Course Vital Signs 06/22/20 14:22 Temperature 98.0 F Pulse Rate 97 Respiratory 18 Rate Blood Pressure 106/67 O2 Sat by Pulse 97 Oximetry Medical Decision Making - Medical Decision Making 45-year-old female patient presented to the emergency department today for evaluation of bilateral flank pain and abdominal pain. Physical examination did reveal bilateral CVA tenderness. Labs reviewed and revealed normal white blood cell count. Elevated lactic acid at 2.6. Blood glucose was 404. Urinalysis showed a cloudy appearance with 4+ glucose, [address] abdomen and pelvis with contrast was obtained and showed bilateral nonobstructing calculi and a 3 cm left ovarian cyst. She was given IV fluids, pain medication, nausea medication. Upon reevaluation states she feels nauseated by her pain is somewhat improved. She'll be discharged with Tylenol with codeine starter pack and Zofran starter pack. She is instructed to follow-up with her primary care physician for recheck in 1-2 days. Return parameters discussed in detail. She verbalizes understanding and agrees with this plan. - Lab Data Result diagrams: 06/22/20 15:24 06/22/20 15:24 Lab Results 06/22/20 06/22/20 06/22/20 Range/Units 15:24 15:24 15:24 WBC 7.8 (3.8-10.6) k/uL RBC 5.58 H (3.80-5.40) m/uL Hgb 14.4 (11.4-16.0) gm/dL Hct 46.7 H (34.0-46.0) % MCV 83.6 (80.0-100.0) fL MCH 25.7 (25.0-35.0) pg MCHC 30.8 L (31.0-37.0) g/dL RDW 13.8 (11.5-15.5) % Plt Count 207 (150-450) k/uL MPV 7.8 Neutrophils % 67 % Lymphocytes % 27 % Monocytes % 3 % Eosinophils % 1 % Basophils % 0 % Neutrophils # 5.2 (1.3-7.7) k/uL Lymphocytes # 2.1 (1.0-4.8) k/uL Monocytes # 0.2 (0-1.0) k/uL Eosinophils # 0.1 (0-0.7) k/uL Basophils # 0.0 (0-0.2) k/uL Sodium 133 L (137-145) mmol/L Potassium 4.2 (3.5-5.1) mmol/L Chloride 99 (98-107) mmol/L Carbon Dioxide 26 (22-30) mmol/L Anion Gap 8 mmol/L BUN 13 (7-17) mg/dL Creatinine 0.47 L (0.52-1.04) mg/dL Est GFR (CKD-EPI)AfAm >90 (>60 ml/min/1.73 sqM) Est GFR (CKD-EPI)NonAf >90 (>60 ml/min/1.73 sqM) Glucose 404 H (74-99) mg/dL Plasma Lactic Acid Tj (0.7-2.0) mmol/L Calcium 9.5 (8.4-10.2) mg/dL Total Bilirubin 0.4 (0.2-1.3) mg/dL AST 19 (14-36) U/L ALT 17 (4-34) U/L Alkaline Phosphatase 73 (38-126) U/L Total Protein 6.7 (6.3-8.2) g/dL Albumin 4.0 (3.5-5.0) g/dL Lipase 102 (23-300) U/L Urine Color Light Yellow Urine Appearance Cloudy H (Clear) Urine pH 5.5 (5.0-8.0) Ur Specific [place] 1.032 (1.001-1.035) Urine Protein Negative (Negative) Urine Glucose (UA) 4+ H (Negative) Urine Ketones Negative (Negative) Urine Blood Negative (Negative) Urine Nitrite Negative (Negative) Urine Bilirubin Negative (Negative) Urine Urobilinogen <2.0 (<2.0) mg/dL Ur Leukocyte Esterase Negative (Negative) Urine RBC 1 (0-5) /hpf Urine WBC 2 (0-5) /hpf Ur Squamous Epith Cells 16 H (0-4) /hpf 06/22/20 Range/Units 15:24 WBC (3.8-10.6) k/uL RBC (3.80-5.40) m/uL Hgb (11.4-16.0) gm/dL Hct (34.0-46.0) % MCV (80.0-100.0) fL MCH (25.0-35.0) pg MCHC (31.0-37.0) g/dL RDW (11.5-15.5) % Plt Count (150-450) k/uL MPV Neutrophils % % Lymphocytes % % Monocytes % % Eosinophils % % Basophils % % Neutrophils # (1.3-7.7) k/uL Lymphocytes # (1.0-4.8) k/uL Monocytes # (0-1.0) k/uL Eosinophils # (0-0.7) k/uL Basophils # (0-0.2) k/uL Sodium (137-145) mmol/L Potassium (3.5-5.1) mmol/L Chloride (98-107) mmol/L Carbon Dioxide (22-30) mmol/L Anion Gap mmol/L BUN (7-17) mg/dL Creatinine (0.52-1.04) mg/dL Est GFR (CKD-EPI)AfAm (>60 ml/min/1.73 sqM) Est GFR (CKD-EPI)NonAf (>60 ml/min/1.73 sqM) Glucose (74-99) mg/dL Plasma Lactic Acid Tj 2.6 H* (0.7-2.0) mmol/L Calcium (8.4-10.2) mg/dL Total Bilirubin (0.2-1.3) mg/dL AST (14-36) U/L ALT (4-34) U/L Alkaline Phosphatase (38-126) U/L Total Protein (6.3-8.2) g/dL Albumin (3.5-5.0) g/dL Lipase (23-300) U/L Urine Color Urine Appearance (Clear) Urine pH (5.0-8.0) Ur Specific [place] (1.001-1.035) Urine Protein (Negative) Urine Glucose (UA) (Negative) Urine Ketones (Negative) Urine Blood (Negative) Urine Nitrite (Negative) Urine Bilirubin (Negative) Urine Urobilinogen (<2.0) mg/dL Ur Leukocyte Esterase (Negative) Urine RBC (0-5) /hpf Urine WBC (0-5) /hpf Ur Squamous Epith Cells (0-4) /hpf - Radiology Data Radiology results: report reviewed, image reviewed CT abdomen and pelvis with contrast was obtained. Report was reviewed in its entirety. Impression by Dr. Brice shows cyst on the left ovary increased compared to old exam. Bilateral nonobstructing renal calculi increase in size compared to old exam. Disposition Clinical Impression: Flank pain, Abdominal pain, Hyperglycemia, Ovarian cyst Disposition: HOME SELF-CARE Condition: Good Instructions (If sedation given, give patient instructions): Ovarian Cyst (ED), Abdominal Pain (ED), Flank Pain (ED) Additional Instructions: Increase fluids. Rest. Take medications as directed. Follow-up through primary care physician for recheck in 1-2 days. Return to the emergency department immediately for any new, worsening, or concerning symptoms. Is patient prescribed a controlled substance at d/c from ED?: No Referrals: Mikal Wong MD [Primary Care Provider] - 1-2 days Time of Disposition: 17:20
[2020-06-22 15:31] LABS: Basophils % (A) 0 %; Eosinophils # (A) 0.1 k/uL (0-0.7); Eosinophils % (A) 1 %; HCT 46.7 % (34.0-46.0); HGB 14.4 gm/dL (11.4-16.0); Lymphocytes # (A) 2.1 k/uL (1.0-4.8); Lymphocytes % (A) 27 %; MCH 25.7 pg (25.0-35.0); MCHC 30.8 g/dL (31.0-37.0); MCV 83.6 fL (80.0-100.0); Mean Platelet Volume 7.8; Monocytes # (A) 0.2 k/uL (0-1.0); Monocytes % (A) 3 %; Neutrophils # (A) 5.2 k/uL (1.3-7.7); Neutrophils % (A) 67 %; Platelet Count 207 k/uL (150-450); RBC 5.58 m/uL (3.80-5.40); RDW 13.8 % (11.5-15.5); WBC 7.8 k/uL (3.8-10.6)
[2020-06-22 15:37] LABS: Appearance,Urine Cloudy (Clear); Bilirubin,Urine Negative (Negative); Blood,Urine Negative (Negative); Color,Urine Light Yellow; Glucose,Urine (UA) 4+ (Negative); Ketones,Urine Negative (Negative); Leukocyte Esterase,Urine Negative (Negative); Nitrite,Urine Negative (Negative); PH, Urine 5.5 (5.0-8.0); Protein,Urine Negative (Negative); RBC,Urine 1 /hpf (0-5); Specific Gravity,Urine 1.032 (1.001-1.035); Squamous Epithelial Cell,Urine 16 /hpf (0-4); Urobilinogen,Urine <2.0 mg/dL (<2.0); WBC,Urine 2 /hpf (0-5)
[2020-06-22 15:48] LABS: ALT 17 U/L (4-34); AST 19 U/L (14-36); African American GFR (CKD) >90 (>60 ml/min/1.73 sqM); Alkaline Phosphatase 73 U/L (38-126); Anion Gap 8 mmol/L; Blood Urea Nitrogen 13 mg/dL (7-17); Calcium 9.5 mg/dL (8.4-10.2); Carbon Dioxide 26 mmol/L (22-30); Chloride 99 mmol/L (98-107); Glucose 404 mg/dL (74-99); Lipase 102 U/L (23-300); Non-African American GFR(CKD) >90 (>60 ml/min/1.73 sqM); Potassium 4.2 mmol/L (3.5-5.1); Sodium 133 mmol/L (137-145); Total Bilirubin 0.4 mg/dL (0.2-1.3); Total Protein 6.7 g/dL (6.3-8.2)
[2020-06-22] MEDS ORDERED: INSULIN ASPART (NovoLOG) 100 UNIT/ML VIAL SQ STA (16:24)
--- NOTE | 2020-06-22 16:47 | CT ---
EXAMINATION TYPE: CT abdomen pelvis w con DATE OF EXAM: 06/22/2020 COMPARISON: 01/27/2019 HISTORY: Bilateral flank pain and nausea x4 days. CT DLP: 819.5 mGycm Automated exposure control for dose reduction was used. CONTRAST: Performed with IV Contrast, patient injected with 100ml mL of Isovue 300. Lung bases are clear. There is no pleural effusion. Heart size is normal. There is no pericardial eff usion. There is 2 cm hypodensity in the superior right lobe of the liver that could be a cyst. There are cli ps from cholecystectomy. Spleen stomach pancreas appear normal. Bile ducts are not dilated. There is no adrenal mass. Kidneys show satisfactory contrast opacification. There is no hydronephrosi s. There is 1 cm cortical cyst posterior left kidney. There is 4 mm calculus interpolar right kidney. There is 3 mm calcification posterior left kidney. There is no retroperitoneal adenopathy. Ureters a re not dilated. Bladder distends smoothly. There is no inguinal hernia. There is 3 cm cyst on the lef t ovary. There is no free fluid in the pelvis. There is no inguinal hernia. There is hysterectomy. Lumbar vertebra have normal alignment. Disc spaces are fairly normal. There is no compression fractur e. The bony pelvis is intact. Hip joints are intact. There is no mesenteric edema. There is no ascites. There is no evidence of free air. There is no evid ence of bowel obstruction. Appendix is not seen. There is no sign of thickened appendix. IMPRESSION: There is cyst on the left ovary increased compared to old exam. Bilateral nonobstructing renal calculi increased in size compared to old exam.
[2020-06-22] MEDS ORDERED: ACET/COD 300 MG/30 MG STARTER PACK 6 TAB BTL PO STA (17:20)
[2020-06-22] MEDS ORDERED: ONDANSETRON 4 MG ODT STARTER PACK 2 TAB BTL PO STA (17:22)
[2020-06-22 17:38] LABS: Glucose,Whole Blood 296 mg/dL (75-99)
[2020-06-22 17:51] VITALS: BP 110/62; TEMP 98.2
== END 2020-06-22 17:49 | disposition home or self-care (01) ==
LOC: EC 14:09
DX: N83.202 Unspecified ovarian cyst, left side (principal); E11.65 Type 2 diabetes mellitus with hyperglycemia; N20.0 Calculus of kidney; Z79.4 Long term (current) use of insulin; Z79.899 Other long term (current) drug therapy; Z88.1 Allergy status to other antibiotic agents; Z98.1 Arthrodesis status; Z90.49 Acquired absence of other specified parts of digestive tract; Z90.710 Acquired absence of both cervix and uterus
CPT/HCPCS: 36415; 80053; 83605; 83690; 85025; 81001; 74177; 99284; 96374; 96375 ×3; 96361; J2405; J1885; S0119; J1170; Q9967

== ENCOUNTER 2020-07-23 17:44 | Emergency (ER) | payer OTHER ==
--- NOTE | 2020-07-23 18:32 | ED ---
ENT HPI - General Chief complaint: ENT Stated complaint: ENT - Sore throat Time Seen by Provider: 07/23/20 17:53 Source: patient Mode of arrival: ambulatory Limitations: no limitations - History of Present Illness Initial comments: Patient is a 45-year-old female presenting to the emergency Department with complaints of a sore throat x 4 days. Patient states she had 2 teeth extractions performed one week ago, lower back on each side. The patient states a few days later she developed a sore throat and is complaining of a bad breath as well. Patient states she completed a short course of amoxicillin immediately after the extractions. She denies fever or chills. She states she does have a mild headache. She states she has had strep throat in the past and this feels similar. He denies any nausea, vomiting, she denies any other complaints at this time. She states she did try to call her dentist and was not been able to get in yet. She is no further complaints at this time. Upon arrival to the ER, her vitals are stable. - Related Data Home Medications Medication Instructions Recorded Confirmed Insulin Glargine,Hum.rec.anlog 8 unit SQ HS 06/02/18 06/22/20 [Basaglar Kwikpen U-100] Insulin Lispro [Admelog Solostar] See Protocol SQ AC-TID 01/27/19 06/22/20 Topiramate [Topamax] 25 mg PO BID 03/07/19 06/22/20 Ertugliflozin Pidolate [Steglatro] 15 mg PO DAILY 05/09/20 06/22/20 Albuterol Inhaler [Ventolin Hfa 2 puff INHALATION RT-QID PRN 06/22/20 06/22/20 Inhaler] Pioglitazone [Actos] 30 mg PO DAILY 06/22/20 06/22/20 SUMAtriptan succinate [Imitrex] 25 mg PO BID PRN 06/22/20 06/22/20 Previous Rx's Medication Instructions Recorded Ibuprofen [Motrin] 600 mg PO Q8HR PRN #30 tab 07/23/20 Penicillin V Potassium [Pen Vee K] 500 mg PO QID 5 Days #20 tablet 07/23/20 Allergies Allergy/AdvReac Type Severity Reaction Status Date / Time cephalexin monohydrate AdvReac Mild Nausea & Verified 07/23/20 17:49 [From Keflex] Vomiting Review of Systems ROS Statement: Those systems with pertinent positive or pertinent negative responses have been documented in the HPI. ROS Other: All systems not noted in ROS Statement are negative. Past Medical History Past Medical History: Diabetes Mellitus, Osteoarthritis (OA) Additional Past Medical History / Comment(s): Type II diabetes requiring insulin, CHRONIC NECK PAIN AND MIGRAINE. SEASONAL ALLERGIES History of Any Multi-Drug Resistant Organisms: None Reported Past Surgical History: Bladder Surgery, Cholecystectomy, Hysterectomy, Orthopedic Surgery Additional Past Surgical History / Comment(s): Bladder sling procedure 2018. Vaginal hysterectomy 2015. Cervical fusion. RIGHT KNEE ARTHROSCOPIC X2, LEFT ARTHROSCOPIC KNEE X2, Past Anesthesia/Blood Transfusion Reactions: Previous Problems w/ Anesthesia, Motion Sickness, Postoperative Nausea & Vomiting (PONV) Additional Past Anesthesia/Blood Transfusion Reaction / Comment(s): DIFFICULT TO WAKE UP WITH NECK SURGERY, POST OP NAUSEA. DIFFICULT IV START Past Psychological History: Anxiety, Depression Smoking Status: Never smoker Past Alcohol Use History: None Reported Past Drug Use History: None Reported - Past Family History Mother Family Medical History: Cancer Additional Family Medical History / Comment(s): RECTAL CANCER. Maternal grandmother had colon cancer. Father Family Medical History: Cancer Additional Family Medical History / Comment(s): Lymphoma General Exam - General Exam Comments Initial Comments: GENERAL: Patient is well-developed and well-nourished. Patient is nontoxic and in no acute distress. HEAD: Atraumatic, normocephalic. EYES: Pupils equal round and reactive to light, extraocular movements intact, sclera anicteric, conjunctiva are normal. Eyelids were unremarkable. ENT: TMs normal, nares patent, oropharynx clear without exudates. Moist mucous membranes. No signs of a dental abscess, no dry socket. Tooth extraction sites look mildly erythematous, no active drainage. NECK: Normal range of motion, supple without lymphadenopathy or JVD. LUNGS: Unlabored respirations. Breath sounds clear to auscultation bilaterally and equal. No wheezes rales or rhonchi. HEART: Regular rate and rhythm without murmurs, rubs or gallops. ABDOMEN: Soft, nontender, normoactive bowel sounds. No guarding, no rebound. No masses appreciated. : Deferred MUSCULOSKELETAL: Normal extremities with adequate strength and normal range of motion, no pitting or edema. No clubbing or cyanosis. NEUROLOGICAL: Patient is alert and oriented x 3. Motor and sensory are also intact. Cranial nerves II through XII grossly intact. Symmetrical smile. Normal speech, normal gait. PSYCH: Normal mood, normal affect. SKIN: Warm, Dry, normal turgor, no rashes or lesions noted. Limitations: no limitations Course Vital Signs 07/23/20 07/23/20 07/23/20 17:46 18:49 19:29 Temperature 98.3 F 98.6 F 97.8 F Pulse Rate 98 90 77 Respiratory 18 18 20 Rate Blood Pressure 134/85 132/78 134/84 O2 Sat by Pulse 99 100 97 Oximetry Medical Decision Making - Medical Decision Making Patient is a 45-year-old female here with a sore throat for a few days, she had 2 teeth extractions one week ago. No fever her vital signs are stable. Strep test is negative today. I discussed with patient that her sore throat could be viral in nature or could be possibly from bacteria from her tooth extraction. I will start her on penicillin as well as Motrin for discomfort. She needs to follow up with her dentist. She is in agreement with this plan of care. She is stable for discharge. - Lab Data Lab Results 07/23/20 Range/Units 18:08 Group A Strep Rapid Negative (Negative) Disposition Clinical Impression: Sore throat, Toothache Disposition: HOME SELF-CARE Condition: Stable Instructions (If sedation given, give patient instructions): Strep Throat (ED) Additional Instructions: Please return to the Emergency Department if symptoms worsen or any other concerns. Take antibiotic as prescribed. Take ibuprofen every 6-8 hours for pain or inflammation. Follow-up with your dentist or regular doctor. Prescriptions: Ibuprofen [Motrin] 600 mg PO Q8HR PRN #30 tab PRN Reason: Pain Penicillin V Potassium [Pen Vee K] 500 mg PO QID 5 Days #20 tablet Is patient prescribed a controlled substance at d/c from ED?: No Referrals: Mikal Wong MD [Primary Care Provider] - 1-2 days
[2020-07-23 19:31] VITALS: BP 134/84; PULSE 77; RESP 20; TEMP 97.8
== END 2020-07-23 19:30 | disposition home or self-care (01) ==
LOC: EC 17:44
DX: J02.9 Acute pharyngitis, unspecified (principal); K08.89 Other specified disorders of teeth and supporting structures; E11.9 Type 2 diabetes mellitus without complications; Z79.4 Long term (current) use of insulin; Z88.1 Allergy status to other antibiotic agents; Z98.1 Arthrodesis status; Z90.710 Acquired absence of both cervix and uterus; Z90.49 Acquired absence of other specified parts of digestive tract
CPT/HCPCS: 87081; 87430; 99283

== ENCOUNTER → 2021-02-20 | Outpatient (CLI) | payer OTHER ==
[2021-02-21 01:22] LABS: Basophils # (A) 0.02 X 10*3/uL (0.00-0.10); Basophils % (A) 0.3 %; Eosinophils # (A) 0.08 X 10*3/uL (0.04-0.35); Eosinophils % (A) 1.2 %; HCT 42.4 % (37.2-46.3); HGB 12.9 g/dL (12.0-15.0); Lymphocytes # (A) 1.85 X 10*3/uL (0.90-5.00); Lymphocytes % (A) 26.7 %; MCH 26.4 pg (27.0-32.0); MCHC 30.4 g/dL (32.0-37.0); MCV 86.9 fL (80.0-97.0); Monocytes # (A) 0.33 X 10*3/uL (0.20-1.00); Monocytes % (A) 4.8 %; Neutrophils # (A) 4.64 X 10*3/uL (1.80-7.70); Neutrophils % (A) 66.9 %; Platelet Count 235 X 10*3/uL (140-440); RBC 4.88 X 10*6/uL (4.10-5.20); RDW 13.5 % (11.5-14.5); WBC 6.93 X 10*3/uL (4.50-10.00)
[2021-02-21 06:18] LABS: African American GFR (CKD) 120.4 (60.0-200.0); Albumin 3.9 g/dL (3.80-4.90); Albumin/Globulin Ratio 1.77 (1.60-3.17); Anion Gap 10.3 mmol/L (4.00-12.00); Calcium 9.1 mg/dL (8.7-10.3); Carbon Dioxide 25.7 mmol/L (21.6-31.8); Globulin 2.2 g/dL (1.6-3.3); Non-African American GFR(CKD) 103.9 (60.0-200.0); Potassium 4.5 mmol/L (3.5-5.5); Total Bilirubin 0.3 mg/dL (0.2-1.2); Total Protein 6.1 g/dL (6.2-8.2)
--- NOTE | 2021-02-21 09:12 | XR ---
EXAMINATION TYPE: XR chest 2V DATE OF EXAM: 02/20/2021 COMPARISON: NONE TECHNIQUE: PA and lateral views submitted. HISTORY: Chest pain FINDINGS: The lungs are clear and there is no pneumothorax, pleural effusion, or focal pneumonia. Postsurgica l change overlying the cervical spine. Heart size normal with no overt failure. Surgical clips in the abdomen. IMPRESSION: 1. No acute process.
== END | disposition home or self-care (01) ==
LOC: LABWHC1 14:32
PROVIDERS: ATTEND Internal Medicine
DX: R07.9 Chest pain, unspecified (principal)
CPT/HCPCS: 36415; 71046; 80053; 83880; 84484; 85025

== ENCOUNTER → 2021-07-15 | Outpatient (CLI) | payer OTHER ==
[2021-07-15 11:39] VITALS: BP 111/75; PULSE 102; RESP 18; TEMP 97.7
--- NOTE | 2021-07-15 12:50 | P.HPOB ---
History of Present Illness H&P Date: 07/15/21 Chief Complaint: The patient is here for her routine gynecologic exam and ma mmogram. This is a 46-year-old with an LMP of 2014. She is status post vaginal hysterectomy for benign reasons. She also underwent a bladder sling procedure for urinary incontinence in 2018. She states that since the bladder sling procedure, she has had significant pain with intercourse and this seems to occur at the perineal area, which is the site of her previous episiotomy, and it feels like it wants to tear every time she has sex. She states she has not been sexually active for about 1 year. She has not used the estrogen vaginal cream because her insurance did not cover it. She has been having worsening hot flashes especially during the past 6 months. She states the hot flashes have been horrible. She denies vulvar itching or other vaginitis symptoms at this time. Review of Systems The patient has gained 30 pounds over the last year. She denies respiratory, cardiac, or G.I. problems. : She has been having a slow urinary stream and also notices some burning at the end of voiding. She states the urinary stream has been slow since her sling procedure in 2018. Also see the HPI. Past Medical History Past Medical History: Diabetes Mellitus, Osteoarthritis (OA) Additional Past Medical History / Comment(s): Type II diabetes requiring insulin, CHRONIC NECK PAIN AND MIGRAINE. SEASONAL ALLERGIES. PAST [employer] HISTORY: She has no history of STDs. History of Any Multi-Drug Resistant Organisms: None Reported Past Surgical History: Bladder Surgery, Cholecystectomy, Hysterectomy, Orthopedic Surgery Additional Past Surgical History / Comment(s): Bladder sling procedure 2018. Vaginal hysterectomy 2014. Cervical fusion. RIGHT KNEE ARTHROSCOPIC X2, LEFT ARTHROSCOPIC KNEE X2, Past Anesthesia/Blood Transfusion Reactions: Previous Problems w/ Anesthesia, Motion Sickness, Postoperative Nausea & Vomiting (PONV) Additional Past Anesthesia/Blood Transfusion Reaction / Comment(s): DIFFICULT TO WAKE UP WITH NECK SURGERY, POST OP NAUSEA. DIFFICULT IV START Past Psychological History: Anxiety, Depression Additional Psychological History / Comment(s): NO MEDS TAKEN Smoking Status: Never smoker Past Alcohol Use History: Rare (2 per Year) Additional Past Alcohol Use History / Comment(s): Previously socially drink alcohol, but quit. Past Drug Use History: None Reported Additional History: She is a and has been twice. She has been with her current boyfriend since 2014 and they do not live together. She does not work outside of the home. - Past Family History Mother Family Medical History: Cancer Additional Family Medical History / Comment(s): RECTAL CANCER. Maternal grandmother had colon cancer. Father Family Medical History: Cancer Additional Family Medical History / Comment(s): Lymphoma Medications and Allergies Home Medications Medication Instructions Recorded Confirmed Type Albuterol Inhaler [Ventolin Hfa 2 puff INHALATION RT-QID PRN 06/22/20 07/15/21 History Inhaler] SUMAtriptan succinate [Imitrex] 25 mg PO BID PRN 06/22/20 07/15/21 History Ibuprofen [Motrin] 600 mg PO Q8HR PRN #30 tab 07/23/20 07/15/21 Rx INSULIN LISPRO (For Pump) [humaLOG 0.01 units SQ-PUMP CONTINUOUS 07/15/21 07/15/21 History (For Pump)] Allergies Allergy/AdvReac Type Severity Reaction Status Date / Time cephalexin monohydrate AdvReac Mild Nausea & Verified 07/15/21 11:32 [From Keflex] Vomiting Exam Vital Signs Temp Pulse Resp BP Pulse Ox 07/15/21 11:32 97.7 F 102 H 18 111/75 99 Intake and Output 07/14/21 07/15/21 07/15/21 22:59 06:59 14:59 Other: Weight 77.111 kg Height 4 feet 11-1/2 inches, weight 170 pounds, BMI 33.8. This is a well-developed well-nourished white female who is alert and oriented times 3 in no acute distress. HEENT: Within normal limits. NECK: Supple without mass or thyromegaly. CHEST AND LUNGS: Clear to auscultation. HEART: Regular rate and rhythm. BREASTS: Are without mass or discharge. AXILLARY EXAM: Negative for adenopathy. BACK: Negative for CVA tenderness. ABDOMEN: Soft, nontender, without palpable masses. PELVIC EXAM: External genitalia reveals a generalized vulvar erythema without focal lesions or ulceration. There is mild vulvar atrophy. Vagina appears normal with minimal atrophy. There is a small to moderate amount of thick whitish discharge without odor. There is some perineal tenderness upon inserting the speculum. There is no evidence of prolapse. Bimanual examination is negative for mass but there is mild generalized pelvic tenderness. RECTAL EXAM: Rectovaginal exam is negative for mass or tenderness and is negative for occult blood. EXTREMITIES: Nontender. IMPRESSION: 1. 46-year-old female who is status post vaginal hysterectomy for benign reasons with significant vasomotor symptoms consistent with the menopausal change. 2. Dyspareunia with the feeling like the perineal area is going to tear. This may be related to some genital atrophy as well as possible episiotomy scar tenderness. 3. Mild generalized pelvic tenderness which may also contribute to dyspareunia. 4. Vaginal discharge. Differential diagnosis will include Marta vaginitis, and less likely bacterial vaginosis or Trichomonas. 5. Dysuria at the end of voiding, possible UTI. Slow urinary stream seems to have followed the sling procedure that she had in 2018. PLAN: 1. Pap smears have been discontinued. 2. Self breast awareness was discussed with the patient. We have also discussed symptoms associated with inflammatory breast cancer. 3. Screening mammogram will be done today. 4. Affirm vaginitis panel has been obtained from the vagina. 5. Urine will be obtained for UA and culture with sensitivities. 6. Pelvic ultrasound was recommended because of the generalized pelvic tenderness. The order slip was given to the patient for this. 7. We have had a long discussion regarding estrogen area dye had initially recommended vaginal estrogen because of her vaginal symptoms and dyspareunia, however with the severe vasomotor symptoms that she has been experiencing, we have discussed oral estrogen replacement therapy. We have discussed risks such as slight increased risk for blood clots. She does not have history of breast cancer or uterine cancer. We will have a trial of estradiol 1 mg by mouth daily. The electronic prescription will be sent to [facility] on . 8. She has not received Covid vaccination and is not planning getting one because of her previous reaction to flu vaccinations. She will discuss this with her PCP. 9. I recommended that she return in 1 month for reevaluation of her symptoms, and as needed. Total times with the patient: 60 minutes.
[2021-07-15 18:27] LABS: Appearance,Urine Clear (Clear); Bilirubin,Urine Negative (Negative); Blood,Urine Negative (Negative); Color,Urine Yellow; Glucose,Urine (UA) 4+ (Negative); Ketones,Urine 1+ (Negative); Leukocyte Esterase,Urine Negative (Negative); Nitrite,Urine Negative (Negative); PH, Urine 5.5 (5.0-8.0); Protein,Urine Trace (Negative); Specific Gravity,Urine 1.026 (1.001-1.035); Urobilinogen,Urine <2.0 mg/dL (<2.0)
--- NOTE | 2021-07-16 13:12 | P.PN ---
Progress Note - Text Progress Note Date: 07/16/21 OUTPATIENT FOLLOW-UP NOTE TEST(S)/RESULTS: Urinalysis done on 07/15/2021 is negative for infection but there was 4+ glucose. METHOD OF NOTIFICATION: She was notified by phone. PATIENT COMMENTS: DIAGNOSIS: Urinalysis negative for infection. Glucosuria. DISCUSSION: The patient is diabetic. I have mentioned that she did have sugar in the urine and she should check her blood sugar control and this will be managed by her diabetes doctor if problems. PLAN: Await affirm vaginitis panel and urine culture.
[2021-07-16 13:15] LABS: Gardnerella Positive (Negative); Source Vagina; Trichomonas Negative (Negative)
--- NOTE | 2021-07-17 11:01 | P.PN ---
Progress Note - Text Progress Note Date: 07/17/21 Test results from 07/15/21 include Affirm vaginitis panel positive for Gardnerella, and negative for Marta and Trichomonas. Urine culture was negative. The patient was notified by phone. Impression: Bacterial vaginosis Plan: Metronidazole 500mg PO BID x7days. The electronic prescription was sent to [facility] on [address] Pelvic US has been scheduled per the patient.
== END | disposition home or self-care (01) ==
LOC: WWCWWP 11:20
PROVIDERS: ATTEND Obstetrics & Gynecology
DX: Z12.31 Encounter for screening mammogram for malignant neoplasm of breast (principal); R30.0 Dysuria; N76.2 Acute vulvitis
CPT/HCPCS: 77067; 81003; 87086; 87480; 87510; 87660

== ENCOUNTER → 2021-07-22 | Outpatient (CLI) | payer OTHER ==
--- NOTE | 2021-07-22 15:44 | BD ---
EXAMINATION TYPE: Axial Bone Density DATE OF EXAM: 07/22/2021 COMPARISON: NONE CLINICAL HISTORY: Height: 59.2 IN Weight: 171 LBS FRAX RISK QUESTIONS: Secondary Osteoporosis: 3. Menopause before 45: PARTIAL HYST AGE 38 RISK FACTORS HISTORY OF: History of Wrist Fracture: DI WRIST FX AGE 13 Active: YES Diet low in dairy products/other sources of calcium: YES Postmenopausal woman: PARTIAL HYST AGE 38 Frequent falls: YES VERTIGO MEDICATIONS: Additional Medications: VIT D, DIABETES MEDS, EXAM MEASUREMENTS: Bone mineral densitometry was performed using the [employer] System. Bone mineral density as measured about the Lumbar spine is: ----- L1-L4(G/cm2): 1.144 T Score Values are as follows: ----- L2: -0.4 ----- L3: -0.3 ----- L4: -0.6 ----- L1-L4: -0.3 Bone mineral density BASELINE Bone mineral density about the R hip (g/cm2): 1.067 Bone mineral density about the L hip (g/cm2): 1.040 T Score values are as follows: -----R Neck: 0.2 -----L Neck: 0.0 -----R Total: 1.7 -----L Total: 1.7 Bone mineral density BASELINE IMPRESSION: Normal (Values between +1 and -1 indicate normal bone mass). Consider repeating this study in 5 year s or sooner if there is some new clinical indication. NOTE: T-SCORE=SD OF THE YOUNG ADULT MEAN.
--- NOTE | 2021-07-23 10:32 | P.PN ---
Progress Note - Text Progress Note Date: 07/23/21 OUTPATIENT FOLLOW-UP NOTE TEST(S)/RESULTS: Bone density test done on 07/22/2021 was normal. METHOD OF NOTIFICATION: A message with this result was left on the patient's voicemail. PATIENT COMMENTS: DIAGNOSIS: Normal bone density test. DISCUSSION: PLAN: Repeat bone density test at age 55-60. She is scheduled for a pelvic ultrasound and I have recommended recheck in about 1 month to see how she is doing with ERT.
== END | disposition home or self-care (01) ==
LOC: RADBDWWP 07:57
PROVIDERS: ATTEND Obstetrics & Gynecology
DX: M85.88 Other specified disorders of bone density and structure, other site (principal); Z78.0 Asymptomatic menopausal state
CPT/HCPCS: 77080

== ENCOUNTER → 2021-08-29 | Outpatient (CLI) | payer OTHER ==
--- NOTE | 2021-08-29 15:41 | US ---
EXAMINATION TYPE: US venous doppler duplex LE RT DATE OF EXAM: 08/29/2021 3:31 PM COMPARISON: NONE CLINICAL HISTORY: I80.9 PHLEBITIS AND THROMBOPHLEBITIS OF UNSPECIFIED. SIDE PERFORMED: Right TECHNIQUE: The lower extremity deep venous system is examined utilizing real time linear array sonog barbara with graded compression, doppler sonography and color-flow sonography. VESSELS IMAGED: Common Femoral Vein Deep Femoral Vein Greater Saphenous Vein * Femoral Vein Popliteal Vein Small Saphenous Vein * Proximal Calf Veins (* superficial vessels) Right Leg: Negative for DVT PTV's and GSV also scanned per order. Preliminary results given to Julianna at immediately following exam. IMPRESSION: 1. Right lower extremity ultrasound negative for deep venous thrombosis. 2. Superficial veins included within the [id number] likewise appear unremarkable
== END | disposition home or self-care (01) ==
LOC: RADUSWWP 15:02
PROVIDERS: ATTEND Orthopaedic Surgery
DX: S93.601A Unspecified sprain of right foot, initial encounter (principal); I80.9 Phlebitis and thrombophlebitis of unspecified site; X58.XXXA Exposure to other specified factors, initial encounter

== ENCOUNTER → 2021-12-23 | Outpatient (CLI) | payer OTHER ==
--- NOTE | 2021-12-23 18:25 | US ---
EXAMINATION TYPE: US kidneys/renal and bladder DATE OF EXAM: 12/23/2021 COMPARISON: NONE CLINICAL HISTORY: 46-year-old female R10.9 UNSPECIFIED ABDOMINAL PAIN,R93.4 HISTORY OF HYDRONEPHR. pa in EXAM MEASUREMENTS: Right Kidney: 9.7 x 4.6 x 4.7 cm Left Kidney: 10.5 x 4.3 x 3.6 cm Right Kidney: Scattered punctate echogenic foci could represent prominent vascular reflectors are sma ll nonobstructive calculi. No hydronephrosis. Left Kidney: Either an extrarenal pelvis or mild pelviectasis. No calyceal dilatation to suggest hydr onephrosis. Bladder: Underdistention limits its evaluation. Bilateral Jets seen: no IMPRESSION: No hydronephrosis. Punctate echogenicities in the right kidney could represent prominent vascular ref lectors or nonobstructive calculi.
== END | disposition home or self-care (01) ==
LOC: RADUSWWP 10:48
PROVIDERS: ATTEND Internal Medicine
DX: R10.9 Unspecified abdominal pain (principal); R93.41 Abnormal radiologic findings on diagnostic imaging of renal pelvis, ureter, or bladder
CPT/HCPCS: 76770

== ENCOUNTER 2022-01-20 12:55 | Inpatient (IN) | payer OTHER ==
[2022-01-20 14:34] LABS: Basophils # (A) 0.1 k/uL (0-0.2); Basophils % (A) 1 %; Eosinophils # (A) 0.2 k/uL (0-0.7); Eosinophils % (A) 2 %; HCT 42.5 % (34.0-46.0); HGB 13.9 gm/dL (11.4-16.0); Hypochromasia Slight; Lymphocytes # (A) 4.3 k/uL (1.0-4.8); Lymphocytes % (A) 38 %; MCH 26.8 pg (25.0-35.0); MCHC 32.7 g/dL (31.0-37.0); MCV 81.8 fL (80.0-100.0); Mean Platelet Volume 7.1; Monocytes # (A) 0.4 k/uL (0-1.0); Monocytes % (A) 3 %; Neutrophils # (A) 6.1 k/uL (1.3-7.7); Neutrophils % (A) 54 %; Platelet Count 289 k/uL (150-450); WBC 11.2 k/uL (3.8-10.6)
[2022-01-20 14:43] LABS: ALT 16 U/L (4-34); African American GFR (CKD) >90 (>60 ml/min/1.73 sqM); Albumin 4.2 g/dL (3.5-5.0); Amylase 44 U/L (30-110); Anion Gap 10 mmol/L; Blood Urea Nitrogen 10 mg/dL (7-17); Calcium 8.7 mg/dL (8.4-10.2); Carbon Dioxide 24 mmol/L (22-30); Chloride 104 mmol/L (98-107); Glucose 52 mg/dL (74-99); Lipase 43 U/L (23-300); Non-African American GFR(CKD) >90 (>60 ml/min/1.73 sqM); Sodium 138 mmol/L (137-145); Total Bilirubin 0.6 mg/dL (0.2-1.3)
[2022-01-20 14:55] LABS: AST 29 U/L (14-36); Alkaline Phosphatase 65 U/L (38-126)
--- NOTE | 2022-01-20 15:31 | CT ---
EXAMINATION TYPE: CT abdomen pelvis w con DATE OF EXAM: 01/20/2022 COMPARISON: 06/22/2020 HISTORY: h/o UTI, pain when urinating CT DLP: 1183.5 mGycm CONTRAST: CT scan of the abdomen and pelvis is performed without Oral Contrast and with IV Contrast, patient in jected with 100 mL of Isovue 300. FINDINGS: LUNG BASES-: No visible nodule. No infiltrate. LIVER/GB: The gallbladder is surgically absent. No space occupying hepatic lesion. Biliary tree is of normal caliber. PANCREAS: No inflammation. No distinct mass. SPLEEN: No splenic enlargement. No lesion seen. ADRENALS: No nodule. No thickening. KIDNEYS/BLADDER: 3.2 mm calculus right UVJ resulting in mild right-sided hydronephrosis. No additiona l calculi right kidney. There is an additional calculus noted at the left UPJ measuring 6 mm with mil d hydronephrosis suggested. No additional calculi noted. No renal mass identified. BOWEL: Normal appendix. Normal bowel caliber. No inflammation. GENITAL ORGANS: Left ovarian cyst identified measuring approximately 2.4 cm. Changes of prior hyster ectomy. No right adnexal masses seen. LYMPH NODES: No greater than 1cm abdominal or pelvic lymph nodes are appreciated. AORTA: No significant abnormality. OSSEOUS STRUCTURES: No significant abnormality is seen. OTHER: No significant additional abnormality is seen. IMPRESSION: 1. There is a right UVJ calculus as noted above resulting in mild right-sided hydronephrosis. Additio nal calculus at the left UPJ also resulting in mild hydronephrosis.
[2022-01-20 16:12] LABS: Appearance,Urine Cloudy (Clear); Bilirubin,Urine Negative (Negative); Blood,Urine Large (Negative); Color,Urine Dark Brown; Glucose,Urine (UA) Negative (Negative); Hyaline Casts,Urine 1 /lpf (0-2); Ketones,Urine Negative (Negative); Leukocyte Esterase,Urine Trace (Negative); Mucus,Urine Moderate /hpf; Nitrite,Urine Positive (Negative); PH, Urine 5.5 (5.0-8.0); Protein,Urine Negative (Negative); RBC,Urine 31 /hpf (0-5); Specific Gravity,Urine 1.018 (1.001-1.035); Squamous Epithelial Cell,Urine 18 /hpf (0-4); WBC,Urine 18 /hpf (0-5)
[2022-01-20] MEDS ORDERED: ONDANSETRON 4 MG/2 ML VIAL IVP PRN (17:05)
[2022-01-20] MEDS ORDERED: MORPHINE SULFATE 4 MG/ML SYRINGE IVP PRN (17:05)
[2022-01-20] MEDS ORDERED: NALOXONE 0.4 MG/ML 1 ML VIAL IV PRN (17:05)
--- NOTE | 2022-01-20 17:05 | ED ---
Female Urogenital HPI - General Chief complaint: Urogenital Stated complaint: UTI Time Seen by Provider: 01/20/22 13:43 Source: patient Mode of arrival: ambulatory Limitations: no limitations - History of Present Illness Initial comments: Patient complains of recurrent urinary tract infections. She has been on multiple antibiotics. She feels like her UTI keeps coming back. She has some flank pain. She has no pain elsewhere in the belly. She has no nausea or vomiting. She has no fevers or chills. She has no weakness. She has no lightheadedness. She has no dizziness. She denies any injuries. She denies any sick contacts. She is not eating or drinking anything unusual. - Related Data Home Medications Medication Instructions Recorded Confirmed Albuterol Inhaler [Ventolin Hfa 2 puff INHALATION RT-QID PRN 06/22/20 07/15/21 Inhaler] SUMAtriptan succinate [Imitrex] 25 mg PO BID PRN 06/22/20 07/15/21 INSULIN LISPRO (For Pump) [humaLOG 0.01 units SQ-PUMP CONTINUOUS 07/15/21 07/15/21 (For Pump)] Previous Rx's Medication Instructions Recorded Ibuprofen [Motrin] 600 mg PO Q8HR PRN #30 tab 07/23/20 estradioL [Estrace] 1 mg PO DAILY #60 tab 07/15/21 metroNIDAZOLE [Flagyl] 500 mg PO BID 7 Days #14 tab 07/17/21 Allergies Allergy/AdvReac Type Severity Reaction Status Date / Time cephalexin monohydrate AdvReac Mild Nausea & Verified 01/20/22 13:00 [From Keflex] Vomiting Review of Systems ROS Statement: Those systems with pertinent positive or pertinent negative responses have been documented in the HPI. ROS Other: All systems not noted in ROS Statement are negative. Past Medical History Past Medical History: Diabetes Mellitus, Osteoarthritis (OA) Additional Past Medical History / Comment(s): Type II diabetes requiring insulin, CHRONIC NECK PAIN AND MIGRAINE. SEASONAL ALLERGIES. 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 History of Any Multi-Drug Resistant Organisms: None Reported Past Surgical History: Bladder Surgery, Cholecystectomy, Hysterectomy, Orthopedic Surgery Additional Past Surgical History / Comment(s): Bladder sling procedure 2018. Vaginal hysterectomy 2015. Cervical fusion. RIGHT KNEE ARTHROSCOPIC X2, LEFT ARTHROSCOPIC KNEE X2, Past Anesthesia/Blood Transfusion Reactions: Previous Problems w/ Anesthesia, Motion Sickness, Postoperative Nausea & Vomiting (PONV) Additional Past Anesthesia/Blood Transfusion Reaction / Comment(s): DIFFICULT TO WAKE UP WITH NECK SURGERY, POST OP NAUSEA. DIFFICULT IV START Past Psychological History: Anxiety, Depression Smoking Status: Never smoker Past Alcohol Use History: Rare Past Drug Use History: None Reported - Past Family History Mother Family Medical History: Cancer Additional Family Medical History / Comment(s): RECTAL CANCER. Maternal grandmother had colon cancer. Father Family Medical History: Cancer Additional Family Medical History / Comment(s): Lymphoma General Exam Limitations: no limitations General appearance: alert, in no apparent distress Head exam: Present: atraumatic, normocephalic, normal inspection Eye exam: Present: normal appearance, PERRL, EOMI. Absent: scleral icterus, conjunctival injection, periorbital swelling ENT exam: Present: normal exam, mucous membranes moist Neck exam: Present: normal inspection. Absent: tenderness, meningismus, lymphadenopathy Respiratory exam: Present: normal lung sounds bilaterally. Absent: respiratory distress, wheezes, rales, rhonchi, stridor Cardiovascular Exam: Present: regular rate, normal rhythm, normal heart sounds. Absent: systolic murmur, diastolic murmur, rubs, gallop, clicks GI/Abdominal exam: Present: soft, normal bowel sounds. Absent: distended, tenderness, guarding, rebound, rigid Extremities exam: Present: normal inspection, full ROM, normal capillary refill. Absent: tenderness, pedal edema, joint swelling, calf tenderness Back exam: Present: normal inspection Neurological exam: Present: alert, oriented X3, CN II-XII intact Psychiatric exam: Present: normal affect, normal mood Skin exam: Present: warm, dry, intact, normal color. Absent: rash Course Vital Signs 01/20/22 01/20/22 12:56 15:58 Temperature 97.6 F Pulse Rate 73 94 Respiratory 20 18 Rate Blood Pressure 145/88 92/56 O2 Sat by Pulse 96 98 Oximetry Medical Decision Making - Medical Decision Making Patient presents with recurrent UTIs. Urinalysis is positive for infection. La boratory studies show an elevated white count. I obtained a CT of the abdomen and pelvis which shows bilateral ureteral stones with hydronephrosis. I have ordered blood cultures. I ordered IV antibiotics. I spoke with urology. Patient will be admitted to the hospital. - Lab Data Result diagrams: 01/20/22 14:22 01/20/22 14:22 Lab Results 01/20/22 01/20/22 01/20/22 Range/Units 14:22 14:22 15:54 WBC 11.2 H (3.8-10.6) k/uL RBC 5.20 (3.80-5.40) m/uL Hgb 13.9 (11.4-16.0) gm/dL Hct 42.5 (34.0-46.0) % MCV 81.8 (80.0-100.0) fL MCH 26.8 (25.0-35.0) pg MCHC 32.7 (31.0-37.0) g/dL RDW 15.0 (11.5-15.5) % Plt Count 289 (150-450) k/uL MPV 7.1 Neutrophils % 54 % Lymphocytes % 38 % Monocytes % 3 % Eosinophils % 2 % Basophils % 1 % Neutrophils # 6.1 (1.3-7.7) k/uL Lymphocytes # 4.3 (1.0-4.8) k/uL Monocytes # 0.4 (0-1.0) k/uL Eosinophils # 0.2 (0-0.7) k/uL Basophils # 0.1 (0-0.2) k/uL Hypochromasia Slight Sodium 138 (137-145) mmol/L Potassium 4.0 (3.5-5.1) mmol/L Chloride 104 (98-107) mmol/L Carbon Dioxide 24 (22-30) mmol/L Anion Gap 10 mmol/L BUN 10 (7-17) mg/dL Creatinine 0.78 (0.52-1.04) mg/dL Est GFR (CKD-EPI)AfAm >90 (>60 ml/min/1.73 sqM) Est GFR (CKD-EPI)NonAf >90 (>60 ml/min/1.73 sqM) Glucose 52 L (74-99) mg/dL Calcium 8.7 (8.4-10.2) mg/dL Total Bilirubin 0.6 (0.2-1.3) mg/dL AST 29 (14-36) U/L ALT 16 (4-34) U/L Alkaline Phosphatase 65 (38-126) U/L Total Protein 7.0 (6.3-8.2) g/dL Albumin 4.2 (3.5-5.0) g/dL Amylase 44 (30-110) U/L Lipase 43 (23-300) U/L Urine Color Dark Brown Urine Appearance Cloudy H (Clear) Urine pH 5.5 (5.0-8.0) Ur Specific [place] 1.018 (1.001-1.035) Urine Protein Negative (Negative) Urine Glucose (UA) Negative (Negative) Urine Ketones Negative (Negative) Urine Blood Large H (Negative) Urine Nitrite Positive H (Negative) Urine Bilirubin Negative (Negative) Urine Urobilinogen 2.0 (<2.0) mg/dL Ur Leukocyte Esterase Trace H (Negative) Urine RBC 31 H (0-5) /hpf Urine WBC 18 H (0-5) /hpf Ur Squamous Epith Cells 18 H (0-4) /hpf Hyaline Casts 1 (0-2) /lpf Urine Mucus Moderate H (None) /hpf Disposition Clinical Impression: Urinary tract infection, Kidney stone Disposition: ADMITTED IP TO THIS HOSP Condition: Fair Is patient prescribed a controlled substance at d/c from ED?: No Referrals: Mikal Wong MD [Primary Care Provider] - 1-2 days
[2022-01-20] MEDS ORDERED: ALBUTEROL NEBULIZED 2.5 MG/3 ML INHALATION PRN (17:07)
[2022-01-20] MEDS ORDERED: SUMAtriptan succinate 25 MG TAB PO PRN (17:07)
[2022-01-20] MEDS ORDERED: LEVOFLOXACIN 250MG-D5W PMX 250 MG in DEXTROSE/WATER 1 50ML.BAG IVPB ONE (17:15)
[2022-01-20] MEDS ORDERED: INSULIN LISPRO (For Pump) 100 UNIT/ML VIAL SQ-PUMP SCH (17:15)
[2022-01-20] MEDS: SODIUM CHLORIDE 0.9% 1,000 ML IV SCH (17:34)
[2022-01-20] MEDS ORDERED: DEXTROSE 4 GM CHEWABLE PO STA (17:48)
--- NOTE | 2022-01-20 19:08 | P.HPIM ---
History of Present Illness H&P Date: 01/20/22 (Nephrolithiasis bilateral with associated with hydronephrosis and stones) Chief Complaint: Lower abdominal pain and back pain with the recurrent UTI. Admission history and physical Date of service 01/20/[address] Wong Mrs[address] Kimi Cm who is 47 years old white female, date of 1975 seen and evaluated in the emergency room exam #10. Chief complaint: Patient presented to the emergency room at [facility] with the complaint of recurrent pain in the back and the lower abdomen with the associated recurrent urinary tract infection. Patient was seen prior to the presentation in the emergency room at [facility] where the did check her urine found that infection with the her presence of cephalexin ALLERGY they give her Levaquin IV piggyback and followed by 7 days of Levaquin however the no culture of the urine has been done. History of present illness: Patient has history of recurrent complain of urine infection with the and known etiology she had testing in the past was negative however today the pain was intolerable 03/28 as she described it and at that time could not handle it at home and came to the emergency room at [facility] she was seen evaluated by the ER physician and he did the laboratories and found that she had urine infection as well as that is started her on Levaquin she did have a computed tomography scan of the abdomen and pelvis and found that she had bilateral stone right side 3.2 mm and the left side is 6 mm and hydronephrosis associated with, 3.2 mm calculus on the right UVJ with mild right-sided hydronephrosis, and the left side UPJ 6 mm with mild hydronephrosis with i ndicated obstruction of both sides bilateral and for that reason consultation with the urology and Dr. marie the urologist advised patient to be admitted and tomorrow the will be taken to the operative room to place a stent and to relieve the obstruction and trial of removal of the stones. In the CAT scan also found that she had left ovarian cyst measuring approximately 2.4 cm which appear to be present in the past no new masses. ALLERGY to Keflex and cephalosporin. Past medical history: Diabetes mellitus type 2 insulin-dependent and she has Pompe, currently she is hypoglycemic because of the continuous infusion of the insulin and we stopped the pump and discussed with the patient for the use CBG to scale and covered with NovoLog insulin as her laboratory indicating her blood sugar today in the ER 52 with the underlying hypoglycemia. And patient did shot the pump not to be used especially patient nothing by mouth for the procedure. History of COPD and mild hypertension and hyperlipidemia Habits never smoked. Had a son and daughter. History of migraine headache She is on hormonal therapy. Her wound nurse Dr. Ac History of diarrhea is not present at this time and history of chest pain noncardiac in origin and she has been taken Imitrex 25 mg tablet twice a day as needed for migraine headache. Not present at this time In reviewing of the system neuropsychiatry no headache no blurred vision and able to ambulate GI nausea significantly but no vomiting Cardiovascular no chest pain and no palpitation Respiratory no cough or expectoration and respiratory problem however she use inhalers pro-air HFA with history of asthma. Genitourinary: She had history of incontinent underwent bladder suspension by Dr. Quiles few years ago. And currently her lower abdominal pain and the back attributed to the movement of the stone to the junction with the hydronephrosis mild. Endocrinology diabetes mellitus on insulin pump with the current laboratory blood glucose 52 with the hypoglycemia. The rest of the bullet reviewed with no contributory factors. On the physical exam: Patient is conscious alert oriented time 3, the hypoglycemia treated in the emergency room and the pump has been stopped "insulin pump " No dizziness no blurred vision, complaining of lower abdominal pain and back pain and flank pain and history of unable to urinate. The head was normocephalic atraumatic pupil equal reactive, conjunctiva is pink, sclera nonicteric. Oropharynx normal and natural teeth able to eat and swallow. No hearing deficit. Neck was supple no JVD no thyromegaly no lymphadenopathy trachea midline. Chest: Clear to auscultation and percussion no wheezes no rhonchi's she had history of asthma. No exacerbation at this time Heart regular sinus rhythm no dysrhythmia Abdomen positive bowel sound was tenderness in the lower abdomen and the flank area. Extremities no edema and positive pulses. Neurology: No lateralizing sign, able to communicate freely, ambulatory. Assessment: Back pain, flank pain, lower abdominal pain, associated with nausea. #2 UTI recurrent with repeated treatment with Levaquin and still continued. #3 bilateral nephrolithiasis with obstruction and hydronephrosis. #4 obstructive uropathy #5 history of asthma and COPD #6 diabetes mellitus insulin-dependent on the pump. 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 Momin. Patient currently had no issue cardiac-abdalla. Plan: #1 cold infusion with the pump of the insulin No. 2 start CBG and cover with NovoLog to scale. Patient is nothing by mouth and that would be every 8 hour pe riod #3 her last EKG was done in January 2021 and will obtain 1 [address] tonight[address] #4 Dr. marie the urologist did see the patient and plan for procedure tomorrow for stenting and to relieve the hydronephrosis and possibly passing the stone. #5 I ordered a urine culture and hopefully they did a blood culture in the ER and order also pro-calcitonin we'll see the results when it is available she is currently on Levaquin. Started in the ER Past Medical History Past Medical History: Diabetes Mellitus, Osteoarthritis (OA) Additional Past Medical History / Comment(s): Type II diabetes requiring insulin, CHRONIC NECK PAIN AND MIGRAINE. SEASONAL ALLERGIES. 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 History of Any Multi-Drug Resistant Organisms: None Reported Past Surgical History: Bladder Surgery, Cholecystectomy, Hysterectomy, Orthopedic Surgery Additional Past Surgical History / Comment(s): Bladder sling procedure 2018. Vaginal hysterectomy 2014. Cervical fusion. RIGHT KNEE ARTHROSCOPIC X2, LEFT ARTHROSCOPIC KNEE X2, Past Anesthesia/Blood Transfusion Reactions: Previous Problems w/ Anesthesia, Motion Sickness, Postoperative Nausea & Vomiting (PONV) Additional Past Anesthesia/Blood Transfusion Reaction / Comment(s): DIFFICULT TO WAKE UP WITH NECK SURGERY, POST OP NAUSEA. DIFFICULT IV START Past Psychological History: Anxiety, Depression Smoking Status: Never smoker Past Alcohol Use History: Rare Past Drug Use History: None Reported - Past Family History Mother Family Medical History: Cancer Additional Family Medical History / Comment(s): RECTAL CANCER. Maternal grandmother had colon cancer. Father Family Medical History: Cancer Additional Family Medical History / Comment(s): Lymphoma Medications and Allergies Home Medications Medication Instructions Recorded Confirmed Type Albuterol Inhaler [Ventolin Hfa 2 puff INHALATION RT-QID PRN 06/22/20 01/20/22 History Inhaler] SUMAtriptan succinate [Imitrex] 25 mg PO BID PRN 06/22/20 01/20/22 History INSULIN LISPRO (For Pump) [humaLOG 0.01 units SQ-PUMP CONTINUOUS 07/15/21 01/20/22 History (For Pump)] estradioL [Estrace] 1 mg PO DAILY #60 tab 07/15/21 01/20/22 Rx Atorvastatin [Lipitor] 10 mg PO DAILY 01/20/22 01/20/22 History Dulaglutide [Trulicity] 1.5 mg SQ MO 01/20/22 01/20/22 History lisinopriL 2.5 mg PO DAILY 01/20/22 01/20/22 History Allergies Allergy/AdvReac Type Severity Reaction Status Date / Time cephalexin monohydrate AdvReac Mild Nausea & Verified 01/20/22 18:01 [From Keflex] Vomiting Physical Exam Vitals: Vital Signs Temp Pulse Resp BP Pulse Ox 01/20/22 17:30 18 106/48 98 01/20/22 15:58 94 18 92/56 98 01/20/22 12:56 97.6 F 73 20 145/88 96 Intake and Output 01/20/22 01/20/22 01/20/22 06:59 14:59 22:59 Other: Weight 79.832 kg Results CBC & Chem 7: 01/20/22 14:22 01/20/22 14:22 Labs: Abnormal Lab Results - Last 24 Hours (Table) 01/20/22 01/20/22 01/20/22 Range/Units 14:22 14:22 15:54 WBC 11.2 H (3.8-10.6) k/uL Glucose 52 L (74-99) mg/dL Urine Appearance Cloudy H (Clear) Urine Blood Large H (Negative) Urine Nitrite Positive H (Negative) Ur Leukocyte Esterase Trace H (Negative) Urine RBC 31 H (0-5) /hpf Urine WBC 18 H (0-5) /hpf Ur Squamous Epith Cells 18 H (0-4) /hpf Urine Mucus Moderate H (None) /hpf
--- NOTE | 2022-01-20 19:09 | P.GSCN ---
History of Present Illness Consult date: 01/20/22 Reason for Consult: bilateral ureteral stone History of present illness: This is a 47-year-old female presented to the hospital with bilateral flank pain, with dysuria and bladder pressure. She was recently seen in [facility], and was discharged home on po antibiotics, but had persistence symptoms. Of note she has history of a mid urethral sling done by Dr. Adair approximately 3 years ago. Since that time she indicated she is been having issues with difficulty voiding and recurrent UTIs. She indicated she has not followed up with him since the sling. On presentation she underwent a CT abdomen and pelvis that showed evidence of a 3 mm right sided UVJ stone and a 6 mm left-sided UPJ stone causing bilateral hydronephrosis. Initially her urinalysis was concerning for UTI. Denies any previous history of stones, no family history of kidney stones. Review of Systems - Constitutional Reports fatigue, Denies chills, Denies fever - EENT Ears, nose, mouth and throat: Denies dysphagia - Cardiovascular Denies chest pain, Denies shortness of breath - Respiratory Denies cough, Denies 7 - Gastrointestinal Reports abdominal pain - Genitourinary Genitourinary: Reports dysuria, Reports flank pain, Reports hematuria, Reports kidney stones - Integumentary Denies rash, Denies unusual bruising - Neurological Denies headaches, Denies syncope Past Medical History Past Medical History: Diabetes Mellitus, Osteoarthritis (OA) Additional Past Medical History / Comment(s): Type II diabetes requiring insulin, CHRONIC NECK PAIN AND MIGRAINE. SEASONAL ALLERGIES. 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 History of Any Multi-Drug Resistant Organisms: None Reported Past Surgical History: Bladder Surgery, Cholecystectomy, Hysterectomy, Orthopedic Surgery Additional Past Surgical History / Comment(s): Bladder sling procedure 2018. Vaginal hysterectomy 2014. Cervical fusion. RIGHT KNEE ARTHROSCOPIC X2, LEFT ARTHROSCOPIC KNEE X2, Past Anesthesia/Blood Transfusion Reactions: Previous Problems w/ Anesthesia, Motion Sickness, Postoperative Nausea & Vomiting (PONV) Additional Past Anesthesia/Blood Transfusion Reaction / Comm: DIFFICULT TO WAKE UP WITH NECK SURGERY, POST OP NAUSEA. DIFFICULT IV START Past Psychological History: Anxiety, Depression Smoking Status: Never smoker Past Alcohol Use History: Rare Past Drug Use History: None Reported - Past Family History Mother Family Medical History: Cancer Additional Family Medical History / Comment(s): RECTAL CANCER. Maternal grandmother had colon cancer. Father Family Medical History: Cancer Additional Family Medical History / Comment(s): Lymphoma Medications and Allergies Home Medications Medication Instructions Recorded Confirmed Type RX: Albuterol Inhaler [Ventolin 2 puff INHALATION RT-QID PRN 06/22/20 01/20/22 History Hfa Inhaler] SUMAtriptan succinate [Imitrex] 25 mg PO BID PRN 06/22/20 01/20/22 History INSULIN LISPRO (For Pump) [humaLOG 0.01 units SQ-PUMP CONTINUOUS 07/15/21 01/20/22 History (For Pump)] RX: estradioL [Estrace] 1 mg PO DAILY #60 tab 07/15/21 01/20/22 Rx Atorvastatin [Lipitor] 10 mg PO DAILY 01/20/22 01/20/22 History Dulaglutide [Trulicity] 1.5 mg SQ MO 01/20/22 01/20/22 History RX: lisinopriL 2.5 mg PO DAILY 01/20/22 01/20/22 History Allergies Allergy/AdvReac Type Severity Reaction Status Date / Time cephalexin monohydrate AdvReac Mild Nausea & Verified 01/20/22 18:01 [From Keflex] Vomiting Surgical - Exam Vital Signs Temp Pulse Resp BP Pulse Ox 97.6 F 73 20 145/88 96 01/20/22 12:56 01/20/22 12:56 01/20/22 12:56 01/20/22 12:56 01/20/22 12:56 - General no distress, moderate pain - Eyes normal ocular movement, no pale - ENT normal nares, normal mucosa - Respiratory normal expansion, normal respiratory effort - Abdomen Abdomen: soft, non tender - Psychiatric oriented to time, oriented to person, oriented to place Results - Labs 01/20/22 14:22 01/20/22 14:22 Abnormal Lab Results - Last 24 Hours (Table) 01/20/22 01/20/22 01/20/22 Range/Units 14:22 14:22 15:54 WBC 11.2 H (3.8-10.6) k/uL Glucose 52 L (74-99) mg/dL Urine Appearance Cloudy H (Clear) Urine Blood Large H (Negative) Urine Nitrite Positive H (Negative) Ur Leukocyte Esterase Trace H (Negative) Urine RBC 31 H (0-5) /hpf Urine WBC 18 H (0-5) /hpf Ur Squamous Epith Cells 18 H (0-4) /hpf Urine Mucus Moderate H (None) /hpf Diabetes panel 01/20/22 Range/Units 14:22 Sodium 138 (137-145) mmol/L Potassium 4.0 (3.5-5.1) mmol/L Chloride 104 (98-107) mmol/L Carbon Dioxide 24 (22-30) mmol/L BUN 10 (7-17) mg/dL Creatinine 0.78 (0.52-1.04) mg/dL Glucose 52 L (74-99) mg/dL Calcium 8.7 (8.4-10.2) mg/dL AST 29 (14-36) U/L ALT 16 (4-34) U/L Alkaline Phosphatase 65 (38-126) U/L Total Protein 7.0 (6.3-8.2) g/dL Albumin 4.2 (3.5-5.0) g/dL Calcium panel 01/20/22 Range/Units 14:22 Calcium 8.7 (8.4-10.2) mg/dL Albumin 4.2 (3.5-5.0) g/dL Pituitary panel 01/20/22 Range/Units 14:22 Sodium 138 (137-145) mmol/L Potassium 4.0 (3.5-5.1) mmol/L Chloride 104 (98-107) mmol/L Carbon Dioxide 24 (22-30) mmol/L BUN 10 (7-17) mg/dL Creatinine 0.78 (0.52-1.04) mg/dL Glucose 52 L (74-99) mg/dL Calcium 8.7 (8.4-10.2) mg/dL Adrenal panel 01/20/22 Range/Units 14:22 Sodium 138 (137-145) mmol/L Potassium 4.0 (3.5-5.1) mmol/L Chloride 104 (98-107) mmol/L Carbon Dioxide 24 (22-30) mmol/L BUN 10 (7-17) mg/dL Creatinine 0.78 (0.52-1.04) mg/dL Glucose 52 L (74-99) mg/dL Calcium 8.7 (8.4-10.2) mg/dL Total Bilirubin 0.6 (0.2-1.3) mg/dL AST 29 (14-36) U/L ALT 16 (4-34) U/L Alkaline Phosphatase 65 (38-126) U/L Total Protein 7.0 (6.3-8.2) g/dL Albumin 4.2 (3.5-5.0) g/dL - Imaging CT scan - abdomen: image reviewed (CT images reviewed 3 mm right-sided UVJ stone, a 6 mm left-sided UPJ stone. Bilateral hydronephrosis) Assessment and Plan Assessment: 47-year-old female admitted to the hospital with bilateral ureteral stricture secondary to a 3 mm right-sided UVJ stone and a 6 mm left-sided UPJ stone causing bilateral hydronephrosis. UA is also concerning for UTI. Discussed with her given the bilateral obstruction recommend proceeding with stent insertion. Discussed the risk and benefit of surgery with her in detail. Discussed with her this is not a definitive way to manage stone, and she will require bilateral ureteroscopy holmium laser with stent removal in the future -OR for cystoscopy with bilateral stent insertion -Given her recurrent UTIs since the sling and placement we'll evaluate for sling erosion during the cystoscopy, she might also eventually benefit from a urodynamic as an outpatient given her difficulty voiding -Follow up on urine culture, recommend continuing antibiotics until cultures finalized
[2022-01-20 19:10] LABS: Glucose,Whole Blood 91 mg/dL (70-110)
[2022-01-20] MEDS ORDERED: IV FLUID CONTINUATION 1,000 ML IV ONE (19:28)
[2022-01-20] MEDS ORDERED: LACTATED RINGERS 1,000 ML IV ONE ×2 (19:28)
[2022-01-20] MEDS: INSULIN ASPART (NovoLOG) 100 UNIT/ML VIAL SQ SCH (19:41)
[2022-01-20] MEDS ORDERED: ONDANSETRON 4 MG/2 ML VIAL ONE (19:48)
[2022-01-20] MEDS ORDERED: SUCCINYLCHOLINE CHLORIDE 100 MG/5 ML SYR IV ONE (19:48)
[2022-01-20] MEDS ORDERED: PROPOFOL 10 MG/ML 20 ML VIAL IV ONE (19:48)
[2022-01-20] MEDS ORDERED: MIDAZOLAM 2 MG/2 ML VIAL ONE (19:48)
[2022-01-20] MEDS ORDERED: fentaNYL (PF) 50 MCG/ML 2 ML AMP ONE (19:48)
[2022-01-20] MEDS ORDERED: LIDOCAINE 2% INJ 20 MG/ML (2 ML VIAL) ONE (19:48)
--- NOTE | 2022-01-20 20:17 | P.OP ---
Date of Procedure: 01/20/22 Preoperative Diagnosis: Bilateral ureteral stones Postoperative Diagnosis: Same Procedure(s) Performed: Cystoscopy, bilateral stent insertion Implants: 6-Arabic by 22 cm stents bilaterally Anesthesia: NORISA Surgeon: Bright Conn Estimated Blood Loss (ml): 1 Pathology: none sent Condition: stable Disposition: PACU Indications for Procedure: 47-year-old female admitted to the hospital with bilateral ureteral stricture secondary to a 3 mm right-sided UVJ stone and a 6 mm left-sided UPJ stone causing bilateral hydronephrosis. UA is also concerning for UTI. Discussed with her given the bilateral obstruction recommend proceeding with stent insertion. Discussed the risk and benefit of surgery with her in detail. Discussed with her this is not a definitive way to manage stone, and she will require bilateral ureteroscopy holmium laser with stent removal in the future Description of Procedure: Patient brought to the operating room, general anesthesia was induced. She was prepped and draped in sterile fashion a placement dorsal lithotomy position. Cystoscopy fitted with a 22-Arabic sheath was inserted per urethra, cystoscopy was performed showed no abnormality within the bladder. There was no evidence of mesh erosion through the bladder or the urethra. Attention was then carried to the right ureteral orifice was intubated with a sensor wire. A ureteral stent was passed over the wire, the proximal curl was visualized on fluoroscopy and distal curl was visualized and cystoscope. Attention was then carried to the left ureteral orifice was intubated with a sensor wire. The wire was advanced under fluoroscopy into the renal pelvis. Next a ureteral stent was passed over the wire, the proximal curl was visualized on fluoroscopy and distal curl was visualized using the cystoscope. The bladder was emptied at the end of the case. Patient tolerated the procedure was taken to recovery in stable condition
[2022-01-20 20:28] LABS: Glucose,Whole Blood 126 mg/dL (70-110)
--- NOTE | 2022-01-20 21:00 | FL ---
Fluoroscopy HISTORY: Bilateral ureteral stent placement 4 seconds fluoroscopy time supplied to the referring clinician. 2 intraoperative C-arm images docume nt the procedure. See dictated report from urology.
[2022-01-21] MEDS: SODIUM CHLORIDE 0.9% 1,000 ML IV SCH ×2 (01:14→12:22)
[2022-01-21] MEDS: METOCLOPRAMIDE 5 MG/ML 2 ML VIAL IVP PRN ×2 (03:15→19:46)
[2022-01-21 07:12] LABS: Glucose,Whole Blood 207 mg/dL (70-110)
[2022-01-21] MEDS: ATORVASTATIN 10 MG TAB PO SCH (08:35)
[2022-01-21] MEDS: PHENAZOPYRIDINE 100 MG TAB PO SCH ×3 (08:35→22:28)
[2022-01-21] MEDS: INSULIN ASPART (NovoLOG) 100 UNIT/ML VIAL SQ SCH ×3 (08:36→16:37)
[2022-01-21] MEDS: KETOROLAC 15 MG/ML 1 ML VIAL IVP PRN ×3 (08:36→22:29)
[2022-01-21 10:29] LABS: Basophils # (A) 0.02 X 10*3/uL (0.00-0.10); Basophils % (A) 0.2 %; Eosinophils # (A) 0.01 X 10*3/uL (0.04-0.35); Eosinophils % (A) 0.1 %; HCT 42.2 % (37.2-46.3); HGB 12.5 g/dL (12.0-15.0); Immature Grans, Automated 0.4 %; Lymphocytes % (A) 15.2 %; MCH 24.8 pg (27.0-32.0); MCHC 29.6 g/dL (32.0-37.0); MCV 83.6 fL (80.0-97.0); Mean Platelet Volume 10.2 fL (9.5-12.2); Monocytes # (A) 0.37 X 10*3/uL (0.20-1.00); Monocytes % (A) 3.5 %; NRBC Per 100 WBC 0 /100 WBCS (0.0-0.0); Neutrophils % (A) 80.6 %; Platelet Count 220 X 10*3/uL (140-440); RBC 5.05 X 10*6/uL (4.10-5.20); RDW 15.1 % (11.5-14.5); WBC 10.54 X 10*3/uL (4.50-10.00)
[2022-01-21 10:48] LABS: African American GFR (CKD) 101.8 (60.0-200.0); Anion Gap 11.6 mmol/L (10.00-18.00); BUN/Creat Ratio 10.13 Ratio (12.00-20.00); Blood Urea Nitrogen 8.1 mg/dL (9.0-27.0); Calcium 8.5 mg/dL (8.7-10.3); Carbon Dioxide 23.4 mmol/L (20.0-27.5); Non-African American GFR(CKD) 87.8 (60.0-200.0); Potassium 4.7 mmol/L (3.5-5.5)
[2022-01-21 11:35] LABS: Glucose,Whole Blood 167 mg/dL (70-110)
--- NOTE | 2022-01-21 15:38 | P.PN ---
Subjective Progress Note Date: 01/21/22 (Bilateral stent placement) Principal diagnosis: Diagnoses: #1 lower abdominal pain, back pain, nausea, associated with nephrolithiasis and obstructive uropathy. #2 hydronephrosis bilateral secondary to nephrolithiasis bilateral. #3 leukocytosis, urinary tract infection culture is pending. #4 diabetes mellitus types 2 insulin-dependent currently off the pump of insulin due to hypoglycemia. 5 status post stent placement bilateral with that future plan by urology for removal of the stent and extraction of the stones. #6 status post cystoscopy. #7 asthma stable no exacerbation. Progress note Date of service 01/21/[address] joseph Patient seen evaluated [id number]. Patient status post stent placement lost night and blood sugar monitored covered with insulin to scale with no farther hypoglycemia which was present in the ER still has pain and discomfort but controlled nausea and vomiting. Culture is pending awfully tomorrow we'll have the results and modulate the treatment and change it to oral medication. Currently she is received Levaquin in the ER this unclear if patient had the urine culture send initiation of the antibiotic or after. I did request from the ER at the time of admission blood culture however apparently wasn't done. Patient is monitored for blood glucose. And covered with insulin to scale. No specific complaint except pain and she is covered with pain medication. Patient is ambulatory and no heparin due to the procedure and the stenting. On exam patient conscious alert oriented 3 communicating well. Head was normocephalic and atraumatic, pupils equal, conjunctiva is pink, sclera nonicteric. Normal hearing Oropharynx with natural teeth Neck was supple no JVD no thyromegaly no lymphadenopathy trachea midline. Chest no wheezes or rhonchi's normal breath sounds no exacerbation. Heart regular normal sinus rhythm. Abdomen: Positive bowel sounds no tenderness on the 4 quadrants. Extremities no edema and positive positive pulses and ambulatory Neurological he stable no lateralizing sign Assessment: #1 bilateral hydronephrosis secondary to stones with obstructive uropathy #2 urinary tract infection #3 culture is pending #4 patient has received in the ER Levaquin 750 mg IV piggyback on 01/20/2022 however unclear if they give it to her before the suffocating the urine culture. And the blood culture wasn't done. #4 status post stent placement bilateral #5 diabetes mellitus monitored and covered with insulin to scale. Plan: #1 we'll continue with the second dose of Levaquin today IV piggyback #2 waiting for the culture tomorrow and if available antibiotic according to the culture and sensitivity orally we'll proceed and that time patient will be planned for discharge. #3 patient will start her insulin pump on the discharge and to follow with the burrer machine as outpatient. #[address] Dr[address] the stent bilaterally advised her to follow-up for removal of the stent and taking care of the bilateral stones. Objective - Vital Signs Vital signs: Vital Signs Temp 98.1 F 01/21/22 13:53 Pulse 95 01/21/22 13:53 Resp 17 01/21/22 13:53 BP 117/78 01/21/22 13:53 Pulse Ox 98 01/21/22 13:53 FiO2 Intake & Output 01/20/22 01/21/22 01/21/22 18:59 06:59 18:59 Intake Total 700 Output Total 400 Balance 300 Weight 79.832 kg 79.832 kg Intake: IV 700 Output: Urine 400 Other: Voiding Method Toilet # Voids 1 - Labs CBC & Chem 7: 01/21/22 06:18 01/21/22 06:18 Labs: Abnormal Lab Results - Last 24 Hours (Table) 01/20/22 01/20/22 01/21/22 Range/Units 15:54 20:26 06:18 WBC 10.54 H (4.50-10.00) X 10*3/uL MCH 24.8 L (27.0-32.0) pg MCHC 29.6 L (32.0-37.0) g/dL RDW 15.1 H (11.5-14.5) % Neutrophils # 8.50 H (1.80-7.70) X 10*3/uL Eosinophils # 0.01 L (0.04-0.35) X 10*3/uL BUN (9.0-27.0) mg/dL BUN/Creatinine Ratio (12.00-20.00) Ratio Glucose (70-110) mg/dL POC Glucose (mg/dL) 126 H (70-110) mg/dL Hemoglobin A1c (0.0-6.0) % Calcium (8.7-10.3) mg/dL Urine Appearance Cloudy H (Clear) Urine Blood Large H (Negative) Urine Nitrite Positive H (Negative) Ur Leukocyte Esterase Trace H (Negative) Urine RBC 31 H (0-5) /hpf Urine WBC 18 H (0-5) /hpf Ur Squamous Epith Cells 18 H (0-4) /hpf Urine Mucus Moderate H (None) /hpf 01/21/22 01/21/22 01/21/22 Range/Units 06:18 06:18 07:09 WBC (4.50-10.00) X 10*3/uL MCH (27.0-32.0) pg MCHC (32.0-37.0) g/dL RDW (11.5-14.5) % Neutrophils # (1.80-7.70) X 10*3/uL Eosinophils # (0.04-0.35) X 10*3/uL BUN 8.1 L (9.0-27.0) mg/dL BUN/Creatinine Ratio 10.13 L (12.00-20.00) Ratio Glucose 204 H (70-110) mg/dL POC Glucose (mg/dL) 207 H (70-110) mg/dL Hemoglobin A1c 6.9 H (0.0-6.0) % Calcium 8.5 L (8.7-10.3) mg/dL Urine Appearance (Clear) Urine Blood (Negative) Urine Nitrite (Negative) Ur Leukocyte Esterase (Negative) Urine RBC (0-5) /hpf Urine WBC (0-5) /hpf Ur Squamous Epith Cells (0-4) /hpf Urine Mucus (None) /hpf 01/21/22 Range/Units 11:34 WBC (4.50-10.00) X 10*3/uL MCH (27.0-32.0) pg MCHC (32.0-37.0) g/dL RDW (11.5-14.5) % Neutrophils # (1.80-7.70) X 10*3/uL Eosinophils # (0.04-0.35) X 10*3/uL BUN (9.0-27.0) mg/dL BUN/Creatinine Ratio (12.00-20.00) Ratio Glucose (70-110) mg/dL POC Glucose (mg/dL) 167 H (70-110) mg/dL Hemoglobin A1c (0.0-6.0) % Calcium (8.7-10.3) mg/dL Urine Appearance (Clear) Urine Blood (Negative) Urine Nitrite (Negative) Ur Leukocyte Esterase (Negative) Urine RBC (0-5) /hpf Urine WBC (0-5) /hpf Ur Squamous Epith Cells (0-4) /hpf Urine Mucus (None) /hpf Microbiology - Last 24 Hours (Table) 01/20/22 15:54 Urine Culture - Preliminary Urine,Voided
[2022-01-21 16:21] LABS: Glucose,Whole Blood 195 mg/dL (70-110)
[2022-01-21] MEDS: LEVOFLOXACIN 750MG-D5W PMX 750 MG in DEXTROSE/WATER 1 150ML.BAG IVPB SCH (16:38)
[2022-01-21 21:25] LABS: Glucose,Whole Blood 176 mg/dL (70-110)
[2022-01-22] MEDS: SODIUM CHLORIDE 0.9% 1,000 ML IV SCH ×3 (01:06→19:35)
[2022-01-22 07:19] LABS: Glucose,Whole Blood 159 mg/dL (70-110)
[2022-01-22] MEDS: KETOROLAC 15 MG/ML 1 ML VIAL IVP PRN (07:49)
[2022-01-22] MEDS: INSULIN ASPART (NovoLOG) 100 UNIT/ML VIAL SQ SCH ×2 (07:53→11:59)
--- NOTE | 2022-01-22 07:53 | P.PN ---
Subjective No acute overnight event, indicates flank pain has resolved, having mild dysuria. Urine cultures is pending Objective - Vital Signs Vital signs: Vital Signs Temp 98.4 F 01/22/22 02:00 Pulse 84 01/22/22 02:00 Resp 15 01/22/22 02:00 BP 103/69 01/22/22 02:00 Pulse Ox 96 01/22/22 02:00 FiO2 Intake & Output 01/21/22 01/22/22 01/22/22 18:59 06:59 18:59 Intake Total 1080 Output Total 700 Balance 380 Intake: Oral 1080 Output: Urine 700 Other: Voiding Method Toilet # Voids 7 - Constitutional General appearance: Present: no acute distress - Gastrointestinal General gastrointestinal: Absent: distended, tenderness - Psychiatric Psychiatric: Present: A&O x's 3 - Labs CBC & Chem 7: 01/21/22 06:18 01/21/22 06:18 Labs: Abnormal Lab Results - Last 24 Hours (Table) 01/21/22 01/21/22 01/21/22 Range/Units 06:18 06:18 06:18 WBC 10.54 H (4.50-10.00) X 10*3/uL MCH 24.8 L (27.0-32.0) pg MCHC 29.6 L (32.0-37.0) g/dL RDW 15.1 H (11.5-14.5) % Neutrophils # 8.50 H (1.80-7.70) X 10*3/uL Eosinophils # 0.01 L (0.04-0.35) X 10*3/uL BUN 8.1 L (9.0-27.0) mg/dL BUN/Creatinine Ratio 10.13 L (12.00-20.00) Ratio Glucose 204 H (70-110) mg/dL POC Glucose (mg/dL) (70-110) mg/dL Hemoglobin A1c 6.9 H (0.0-6.0) % Calcium 8.5 L (8.7-10.3) mg/dL 01/21/22 01/21/22 01/21/22 Range/Units 11:34 16:21 21:24 WBC (4.50-10.00) X 10*3/uL MCH (27.0-32.0) pg MCHC (32.0-37.0) g/dL RDW (11.5-14.5) % Neutrophils # (1.80-7.70) X 10*3/uL Eosinophils # (0.04-0.35) X 10*3/uL BUN (9.0-27.0) mg/dL BUN/Creatinine Ratio (12.00-20.00) Ratio Glucose (70-110) mg/dL POC Glucose (mg/dL) 167 H 195 H 176 H (70-110) mg/dL Hemoglobin A1c (0.0-6.0) % Calcium (8.7-10.3) mg/dL 01/22/22 Range/Units 07:18 WBC (4.50-10.00) X 10*3/uL MCH (27.0-32.0) pg MCHC (32.0-37.0) g/dL RDW (11.5-14.5) % Neutrophils # (1.80-7.70) X 10*3/uL Eosinophils # (0.04-0.35) X 10*3/uL BUN (9.0-27.0) mg/dL BUN/Creatinine Ratio (12.00-20.00) Ratio Glucose (70-110) mg/dL POC Glucose (mg/dL) 159 H (70-110) mg/dL Hemoglobin A1c (0.0-6.0) % Calcium (8.7-10.3) mg/dL Microbiology - Last 24 Hours (Table) 01/20/22 17:47 Blood Culture - Preliminary Blood No Growth after 24 hours Assessment and Plan Assessment: 47-year-old female admitted to the hospital with bilateral ureteral stricture secondary to a 3 mm right-sided UVJ stone and a 6 mm left-sided UPJ stone causing bilateral hydronephrosis. UA is also concerning for UTI. Patient underwent bilateral stent insertion on January 20. -Follow up on urine culture, she can be discharged once the culture is finalized
--- NOTE | 2022-01-22 07:54 | P.PN ---
Subjective No acute overnight event, having dysuria, cultures pending Objective - Vital Signs Vital signs: Vital Signs Temp 98.1 F 01/21/22 07:05 Pulse 98 01/21/22 07:05 Resp 16 01/21/22 07:05 BP 99/62 01/21/22 07:05 Pulse Ox 97 01/21/22 07:05 FiO2 Intake & Output 01/20/22 01/21/22 01/21/22 18:59 06:59 18:59 Intake Total 700 Output Total 400 Balance 300 Weight 79.832 kg 79.832 kg Intake: IV 700 Output: Urine 400 Other: Voiding Method Toilet # Voids 1 - Constitutional General appearance: Present: no acute distress - Gastrointestinal General gastrointestinal: Present: soft. Absent: distended - Labs CBC & Chem 7: 01/21/22 06:18 01/21/22 06:18 Labs: Abnormal Lab Results - Last 24 Hours (Table) 01/20/22 01/20/22 01/20/22 Range/Units 14:22 14:22 15:54 WBC 11.2 H (3.8-10.6) k/uL MCH (27.0-32.0) pg MCHC (32.0-37.0) g/dL RDW (11.5-14.5) % Neutrophils # (1.80-7.70) X 10*3/uL Eosinophils # (0.04-0.35) X 10*3/uL BUN (9.0-27.0) mg/dL BUN/Creatinine Ratio (12.00-20.00) Ratio Glucose 52 L (74-99) mg/dL POC Glucose (mg/dL) (70-110) mg/dL Calcium (8.7-10.3) mg/dL Urine Appearance Cloudy H (Clear) Urine Blood Large H (Negative) Urine Nitrite Positive H (Negative) Ur Leukocyte Esterase Trace H (Negative) Urine RBC 31 H (0-5) /hpf Urine WBC 18 H (0-5) /hpf Ur Squamous Epith Cells 18 H (0-4) /hpf Urine Mucus Moderate H (None) /hpf 01/20/22 01/21/22 01/21/22 Range/Units 20:26 06:18 06:18 WBC 10.54 H (3.8-10.6) k/uL MCH 24.8 L (27.0-32.0) pg MCHC 29.6 L (32.0-37.0) g/dL RDW 15.1 H (11.5-14.5) % Neutrophils # 8.50 H (1.80-7.70) X 10*3/uL Eosinophils # 0.01 L (0.04-0.35) X 10*3/uL BUN 8.1 L (9.0-27.0) mg/dL BUN/Creatinine Ratio 10.13 L (12.00-20.00) Ratio Glucose 204 H (74-99) mg/dL POC Glucose (mg/dL) 126 H (70-110) mg/dL Calcium 8.5 L (8.7-10.3) mg/dL Urine Appearance (Clear) Urine Blood (Negative) Urine Nitrite (Negative) Ur Leukocyte Esterase (Negative) Urine RBC (0-5) /hpf Urine WBC (0-5) /hpf Ur Squamous Epith Cells (0-4) /hpf Urine Mucus (None) /hpf 01/21/22 01/21/22 Range/Units 07:09 11:34 WBC (3.8-10.6) k/uL MCH (27.0-32.0) pg MCHC (32.0-37.0) g/dL RDW (11.5-14.5) % Neutrophils # (1.80-7.70) X 10*3/uL Eosinophils # (0.04-0.35) X 10*3/uL BUN (9.0-27.0) mg/dL BUN/Creatinine Ratio (12.00-20.00) Ratio Glucose (74-99) mg/dL POC Glucose (mg/dL) 207 H 167 H (70-110) mg/dL Calcium (8.7-10.3) mg/dL Urine Appearance (Clear) Urine Blood (Negative) Urine Nitrite (Negative) Ur Leukocyte Esterase (Negative) Urine RBC (0-5) /hpf Urine WBC (0-5) /hpf Ur Squamous Epith Cells (0-4) /hpf Urine Mucus (None) /hpf Microbiology - Last 24 Hours (Table) 01/20/22 15:54 Urine Culture - Preliminary Urine,Voided Assessment and Plan Assessment: 47-year-old female admitted to the hospital with bilateral ureteral stricture secondary to a 3 mm right-sided UVJ stone and a 6 mm left-sided UPJ stone causing bilateral hydronephrosis. UA is also concerning for UTI. Patient underwent bilateral stent insertion on January 20. -We'll start Pyridium for dysuria -Follow up on urine culture, she can be discharged once the culture is finalized
[2022-01-22] MEDS: PHENAZOPYRIDINE 100 MG TAB PO SCH ×3 (07:55→21:49)
[2022-01-22] MEDS: ATORVASTATIN 10 MG TAB PO SCH (07:55)
[2022-01-22 10:10] LABS: Basophils # (A) 0.02 X 10*3/uL (0.00-0.10); Basophils % (A) 0.3 %; Eosinophils % (A) 1.4 %; HCT 38.6 % (37.2-46.3); HGB 11.4 g/dL (12.0-15.0); Immature Grans, Automated 0.3 %; Lymphocytes # (A) 2.71 X 10*3/uL (0.90-5.00); MCH 24.7 pg (27.0-32.0); MCHC 29.5 g/dL (32.0-37.0); MCV 83.7 fL (80.0-97.0); Mean Platelet Volume 10.5 fL (9.5-12.2); Monocytes # (A) 0.39 X 10*3/uL (0.20-1.00); Monocytes % (A) 5.6 %; NRBC Per 100 WBC 0 /100 WBCS (0.0-0.0); Neutrophils # (A) 3.71 X 10*3/uL (1.80-7.70); Neutrophils % (A) 53.4 %; Platelet Count 211 X 10*3/uL (140-440); RBC 4.61 X 10*6/uL (4.10-5.20); RDW 15.1 % (11.5-14.5); WBC 6.95 X 10*3/uL (4.50-10.00)
[2022-01-22 11:40] LABS: Glucose,Whole Blood 184 mg/dL (70-110)
[2022-01-22] MEDS: LEVOFLOXACIN 750MG-D5W PMX 750 MG in DEXTROSE/WATER 1 150ML.BAG IVPB SCH (15:55)
--- NOTE | 2022-01-22 20:26 | PN ---
PROGRESS NOTE DATE OF SERVICE: 01/22/2022 This patient is a 47-year-old white female. FULL CODE. Her height is 4 feet 1 inch and her weight is 79.832 kg. BSA 1.7 mg per square meter. BMI 35.5 kg per square meter. ALLERGIES: CEPHALEXIN MONOHYDRATE. The patient was seen today [id number] and evaluated. She was also seen by Dr. Ramos____, urologist, and she had a procedure of placement of stent. The patient is feeling much better and Dr. Ramos____ of Urology indicates in his note that the culture and sensitivity was finalized and we know which appropriate antibiotic the patient will be discharged home on. It will be an oral antibiotic. However, at this time the culture and sensitivity did not return back and at the time of dictation we have waited this afternoon and evening for the culture results. They are not available yet. I spoke with her RN to avoid staying one more day. For the time being, the patient is seen and evaluated. She feeling well and we resumed her pump of insulin as she was, with the future plan to follow with Dr. Juan, the guidance adviser, as outpatient. Today her temperature is 98.3 F oral. Her pulse rate is 66 beats per minute and her respiratory rate is 18, her blood pressure 120/82, and mean blood pressure 94. Her pulse ox is 95% on room air. On physical examination, the patient was conscious, alert, oriented x3. She is ambulatory and with minimal complaints of pain. Head was normocephalic, atraumatic, and pupils were equal, reactive. Conjunctivae were pink. Sclerae were nonicteric. The oropharynx was normal. Able to eat and swallow. No nausea or vomiting. Neck was supple. No JVD. No thyromegaly. No lymphadenopathy and trachea midline. The chest was clear to auscultation and percussion; no evidence of wheezes or rhonchi. She has a history of asthma and she uses intermittently an inhaler; however, there is no evidence of exacerbation at the time. Heart: PMI in the fifth intercostal space. Normal S1 and S2. No gallop. The abdomen was soft, nontender, and with percussion of the flank there was no significant tenderness; however, she stated that she gets pain once in a while. Suprapubic: No tenderness. Extremities: No edema. Positive pulses bilateral and symmetrical. LABORATORY: Today her white count _around 12and became 6.95 WBC with a hemoglobin 11.4 with nephrolithiasis and hematuria. Hematocrit 38.6, normal. has been monitored before starting the heparin pump and was _on the scale 159 to 184 after she ate and was fairly well controlled. Her hemoglobin had a minimal drop with the procedure and IV fluid. Her electrolytes within normal limits and on admission as well. Sodium 140, potassium 4.7 on January 21. Her GFR was 101.8, which is normal, and the creatinine was 0.8. Her hemoglobin A1c was 6.9 with controlled diabetes mellitus. ASSESSMENT: 1. Bilateral hydronephrosis. 2. Obstructive uropathy with stones bilaterally. 3. Underlying severe pain in the back, flank and suprapubic with the associated nephrolithiasis. 4. Underlying history of insulin pump with diabetes mellitus, type 2, insulin- dependent. This has been stable. Hemoglobin A1c stable. She will be resuming today her pump with a plan for discharge. 5. Hyperlipidemia. 6. History of chronic obstructive pulmonary disease. 7. History of nausea and vomiting. That has been resolved as well. PLAN: 1. We are waiting for the final culture and sensitivity to adjust the antibiotic before discharge. 2. Currently she is on Levaquin 750 mg once a day and today we changed it to oral. 3. We returned to the insulin pump. 4. She will be followed by Urology Dr. Womack or with removal of the stent and removal of the stones later on. She will contact their offices. This evening we checked again for culture and sensitivity to finalize, and we do not have any results yet. We will be holding the patient until they are finalized to see if the sensitivity is accurate for the discharge. MMODL / IJN: [id number] / MTDD
[2022-01-23] MEDS: SODIUM CHLORIDE 0.9% 1,000 ML IV SCH (04:32)
[2022-01-23 06:34] VITALS: BP 110/68; PULSE 91; RESP 16; TEMP 98
[2022-01-23] MEDS ORDERED: ACETAMINOPHEN TAB 500 MG TAB PO PRN (07:09)
[2022-01-23] MEDS: ATORVASTATIN 10 MG TAB PO SCH (08:23)
[2022-01-23] MEDS: PHENAZOPYRIDINE 100 MG TAB PO SCH (08:23)
--- NOTE | 2022-01-23 08:53 | P.PN ---
Subjective No acute overnight event, having some bladder spasms secondary to stent Objective - Vital Signs Vital signs: Vital Signs Temp 98.0 F 01/23/22 05:42 Pulse 91 01/23/22 05:42 Resp 16 01/23/22 05:42 BP 110/68 01/23/22 05:42 Pulse Ox 95 01/23/22 05:42 FiO2 Intake & Output 01/22/22 01/23/22 01/23/22 18:59 06:59 18:59 Intake Total 180 1080 Output Total 850 700 Balance -670 380 Intake: Oral 180 1080 Output: Urine 850 700 Other: Voiding Method Toilet Toilet # Voids 8 # Bowel Movements 3 - Labs CBC & Chem 7: 01/22/22 06:14 01/21/22 06:18 Labs: Abnormal Lab Results - Last 24 Hours (Table) 01/22/22 01/22/22 Range/Units 06:14 11:38 Hgb 11.4 L (12.0-15.0) g/dL MCH 24.7 L (27.0-32.0) pg MCHC 29.5 L (32.0-37.0) g/dL RDW 15.1 H (11.5-14.5) % POC Glucose (mg/dL) 184 H (70-110) mg/dL Microbiology - Last 24 Hours (Table) 01/20/22 15:54 Urine Culture - Final Urine,Voided Staphylococcus haemolyticus 01/20/22 17:47 Blood Culture - Preliminary Blood No Growth after 48 hours Assessment and Plan Assessment: 47-year-old female admitted to the hospital with bilateral ureteral obstruction secondary to a 3 mm right-sided UVJ stone and a 6 mm left-sided UPJ stone -Ok for discharge from urology standpoint -we will discharge from 7 days of Bactrim -We'll arrange for outpatient bilateral ureteroscopy
[2022-01-23] MEDS ORDERED: SULFAMETHOX-TMP 800-160MG 1 EACH TAB PO SCH (09:00)
--- NOTE | 2022-01-23 09:34 | P.DS ---
Providers Date of admission: 01/20/22 17:07 Expected date of discharge: 01/23/22 Attending physician: Mikal Wong Consults: 01/20/22 17:06 Consult Physician Routine Consulting Provider: Bright Conn Consult Reason/Comments: kidney stones Do you want consulting provider notified?: Already Contacted Primary care physician: Mikal Wong This is a discharge summary Date of's service 01/23/2022. Final diagnosis #1 bilateral hydronephrosis #2 bilateral stone with obstructive uropathy #3 UTI resistant to Levaquin and sensitive to Bactrim DS. #4 diabetes mellitus insulin-dependent with the pump. #5 underlying history of asthma however no exacerbation. #6 improvement of her pain suprapubic and the flank and the back. Presentation to the ER with nausea and vomiting which is resolved and severe back pain flank pain suprapubic pain. In the ER they started her on Levaquin and we requested urine culture and sensitivity because of previous Levaquin use with any current urinary tract infection, they did CT of the abdomen and pelvis and found right and left nephrolithiasis with hydronephrosis, they called Dr. Catherine urology on-call, patient received stented and advice to be followed in the office. Hospital course patient started on CBG to scale for diabetes and stopped the pump because of hypoglycemic effect with the pump and patient was unable to eat. As patient improving and we waited for the final culture and sensitivity which found that she is not sensitive to Levaquin and Dr. Catherine saw her today and released her with the new prescription Bactrim DS for 7 days and other medication for muscle relaxation of the ureter and bladder and to follow with the urology associated subsequently and 1 week. Patient stable general condition to be discharged. [id number] exam patient is conscious alert oriented 3 ambulatory. Head was normocephalic and atraumatic Pupil was equal reactive Conjunctiva was pink Sclera was nonicteric Oropharynx negative Neck was supple no JVD no thyromegaly no lymphadenopathy trachea midline. Chest was clear to auscultation percussion The heart was regular sinus rhythm Abdomen soft positive bowel sound no pain extremities no edema. And positive pulses. Assessment: And plan Patient will be discharged today stable general condition and stable vital sign. Continue insulin pump and follow-up with Dr. Juan the office support associate for follow-up on diabetes mellitus however patient was hemoglobin A1c 6.9 controlled. Continue the antibiotic as ordered by . And follow-up with the urology associate. We'll see the patient in 72 hour next week. Patient Condition at Discharge: Fair Plan - Discharge Summary Discharge Rx Participant: No New Discharge Prescriptions: New Tolterodine ER [Detrol LA] 2 mg PO DAILY #20 cap Sulfamethox-Tmp 800-160Mg [Bactrim DS 800-160 mg] 1 tab PO Q12HR 7 Days tab Sulfamethox-Tmp 800-160Mg [Bactrim DS 800-160 mg] 1 each PO BID #14 tab Continue SUMAtriptan succinate [Imitrex] 25 mg PO BID PRN PRN Reason: Migraine Headache Albuterol Inhaler [Ventolin Hfa Inhaler] 2 puff INHALATION RT-QID PRN PRN Reason: Shortness Of Breath INSULIN LISPRO (For Pump) [humaLOG (For Pump)] 0.01 units SQ-PUMP CONTINUOUS Dulaglutide [Trulicity] 1.5 mg SQ MO Atorvastatin [Lipitor] 10 mg PO DAILY estradioL [Estrace] 1 mg PO DAILY #60 tab Discontinued lisinopriL 2.5 mg PO DAILY Discharge Medication List Albuterol Inhaler [Ventolin Hfa Inhaler] 2 puff INHALATION RT-QID PRN 06/22/20 [History] SUMAtriptan succinate [Imitrex] 25 mg PO BID PRN 06/22/20 [History] INSULIN LISPRO (For Pump) [humaLOG (For Pump)] 0.01 units SQ-PUMP CONTINUOUS 07/15/21 [History] estradioL [Estrace] 1 mg PO DAILY #60 tab 07/15/21 [Rx] Atorvastatin [Lipitor] 10 mg PO DAILY 01/20/22 [History] Dulaglutide [Trulicity] 1.5 mg SQ MO 01/20/22 [History] Sulfamethox-Tmp 800-160Mg [Bactrim DS 800-160 mg] 1 each PO BID #14 tab 01/23/22 [Rx] Sulfamethox-Tmp 800-160Mg [Bactrim DS 800-160 mg] 1 tab PO Q12HR 7 Days tab 01/23/22 [Rx] Tolterodine ER [Detrol LA] 2 mg PO DAILY #20 cap 01/23/22 [Rx] Follow up Appointment(s)/Referral(s): Bright Conn MD [STAFF PHYSICIAN] - 01/27/22 (Keep previously-scheduled appointment with Dr Conn) Mikal Wong MD [Primary Care Provider] - 1-2 days Patient Instructions/Handouts: Urinary Tract Infection in Women (DC), Cystoscopy (DC)
== END 2022-01-23 10:37 | disposition home or self-care (01) | DRG 660 ==
LOC: EC 12:55 → 4SSUR 17:07
PROVIDERS: ADMIT Internal Medicine; ATTEND Internal Medicine
PROC: 0T788DZ Dilation of Bilateral Ureters with Intraluminal Device, Via Natural or Artificial Opening Endoscopic (ICD-10-PCS; principal; 2022-01-20 19:08)
DX: N13.6 Pyonephrosis (principal); Z16.29 Resistance to other single specified antibiotic; I10 Essential (primary) hypertension; J44.9 Chronic obstructive pulmonary disease, unspecified; E11.649 Type 2 diabetes mellitus with hypoglycemia without coma; F41.9 Anxiety disorder, unspecified; J30.2 Other seasonal allergic rhinitis; F32.A Depression, unspecified; E78.5 Hyperlipidemia, unspecified; N32.89 Other specified disorders of bladder; Z68.35 Body mass index [BMI] 35.0-35.9, adult; Z79.4 Long term (current) use of insulin; Z79.890 Hormone replacement therapy; Z79.899 Other long term (current) drug therapy; Z80.0 Family history of malignant neoplasm of digestive organs; Z80.7 Family history of other malignant neoplasms of lymphoid, hematopoietic and related tissues; Z87.440 Personal history of urinary (tract) infections; Z88.1 Allergy status to other antibiotic agents; Z90.710 Acquired absence of both cervix and uterus; Z96.41 Presence of insulin pump (external) (internal); Z90.49 Acquired absence of other specified parts of digestive tract; Z98.1 Arthrodesis status; G89.29 Other chronic pain; M54.2 Cervicalgia; G43.909 Migraine, unspecified, not intractable, without status migrainosus
CPT/HCPCS: 36415; 74177; 80048; 80053; 81001; 82150; 83036; 83690; 84145; 85025; 87040; 87077; 87086; 87186; 96365; 99285

== ENCOUNTER → 2022-02-12 | Outpatient (CLI) | payer OTHER ==
[2022-02-12 18:25] LABS: Basophils # (A) 0.01 X 10*3/uL (0.00-0.10); Basophils % (A) 0.1 %; Eosinophils # (A) 0.07 X 10*3/uL (0.04-0.35); HCT 44.3 % (37.2-46.3); HGB 13.1 g/dL (12.0-15.0); Immature Grans, Automated 0.3 %; Lymphocytes # (A) 1.96 X 10*3/uL (0.90-5.00); Lymphocytes % (A) 28.1 %; MCH 24.2 pg (27.0-32.0); MCHC 29.6 g/dL (32.0-37.0); MCV 81.9 fL (80.0-97.0); Mean Platelet Volume 10.1 fL (9.5-12.2); Monocytes # (A) 0.42 X 10*3/uL (0.20-1.00); NRBC Per 100 WBC 0 /100 WBCS (0.0-0.0); Neutrophils % (A) 64.5 %; Platelet Count 330 X 10*3/uL (140-440); RBC 5.41 X 10*6/uL (4.10-5.20); RDW 14.9 % (11.5-14.5); WBC 6.98 X 10*3/uL (4.50-10.00)
[2022-02-12 18:50] LABS: African American GFR (CKD) 96.5 (60.0-200.0); Anion Gap 13.5 mmol/L (10.00-18.00); BUN/Creat Ratio 15.67 Ratio (12.00-20.00); Blood Urea Nitrogen 13.1 mg/dL (9.0-27.0); Calcium 9.6 mg/dL (8.7-10.3); Carbon Dioxide 26.1 mmol/L (20.0-27.5); Non-African American GFR(CKD) 83.2 (60.0-200.0); Potassium 5.2 mmol/L (3.5-5.5)
[2022-02-12 18:53] LABS: Appearance,Urine Turbid (Clear); Bilirubin,Urine Small (Negative); Blood,Urine Large (Negative); Color,Urine Red (Yellow); Ketones,Urine Trace mg/dL (Negative); Nitrite,Urine Positive (Negative); Specific Gravity,Urine 1.019 (1.001-1.030)
== END | disposition home or self-care (01) ==
LOC: LABPAT 11:17
PROVIDERS: ATTEND Urology
DX: Z01.812 Encounter for preprocedural laboratory examination (principal); N20.1 Calculus of ureter
CPT/HCPCS: 80048; 81001; 85025; 87086

== ENCOUNTER 2022-02-20 11:48 | Day surgery (SDC) | payer OTHER ==
[2022-02-18 12:01] VITALS: BMI 32.5
--- NOTE | 2022-02-19 13:50 | P.HPIHPCON ---
History of Present Illness H&P Date: 02/19/22 Chief Complaint: Bilateral ureteral stones This is a 47-year-old female with history of a bilateral ureteral stones, status post stent insertion on January 20. Of note on presentation she had a 3 mm right- sided UVJ stone, and a 6 mm left-sided proximal ureteral stone. Discussed with her the option of definitive stone management. Option of bilateral ureteroscopy with holmium laser was discussed with her. Discussed the risk which includes but not limited to bleeding, infection, injury to the ureter. She understood all the risk and agreed to proceed with a bilateral ureteroscopy, holmium laser lithotripsy, stone basketing, possible stent insertion versus removal Consent for Procedure: I have explained the operation/procedure to the patient, including the risks, benefits, side effects, alternative therapies (including not receiving the prop osed treatment or service), the likelihood of the patient achieving his/her goals, and potential recuperation problems for the procedure/sedation/analgesia, as well as any blood products, if indicated. I also explained to the patient the risks, benefits and side effects of the alternatives, as well as the risks related to not receiving the proposed procedure, care, treatment, or services. Past Medical History Past Medical History: Asthma, COPD, Diabetes Mellitus, GERD/Reflux, Osteoarthritis (OA) Additional Past Medical History / Comment(s): Type II diabetes requiring insulin-HAS INSULIN PUMP , CHRONIC NECK PAIN AND MIGRAINE. SEASONAL ALLERGIES. kidney stones History of Any Multi-Drug Resistant Organisms: None Reported Past Surgical History: Bladder Surgery, Cholecystectomy, Hysterectomy, Orthopedic Surgery Additional Past Surgical History / Comment(s): Bladder sling procedure 2018. Vaginal hysterectomy 2014. Cervical fusion. RIGHT KNEE ARTHROSCOPIC X2, LEFT ARTHROSCOPIC KNEE X2, Past Anesthesia/Blood Transfusion Reactions: Previous Problems w/ Anesthesia, Motion Sickness, Postoperative Nausea & Vomiting (PONV) Additional Past Anesthesia/Blood Transfusion Reaction / Comment(s): DIFFICULT TO WAKE UP WITH NECK SURGERY, POST OP NAUSEA. DIFFICULT IV START Smoking Status: Never smoker - Past Family History Mother Family Medical History: Cancer Additional Family Medical History / Comment(s): RECTAL CANCER. Maternal grandmother had colon cancer. Father Family Medical History: Cancer Additional Family Medical History / Comment(s): lymphoma Medications and Allergies Home Medications Medication Instructions Recorded Confirmed Type Albuterol Inhaler [Ventolin Hfa 2 puff INHALATION RT-QID PRN 06/22/20 02/18/22 History Inhaler] SUMAtriptan succinate [Imitrex] 25 mg PO BID PRN 06/22/20 02/18/22 History INSULIN LISPRO (For Pump) [humaLOG 0.01 units SQ-PUMP CONTINUOUS 07/15/21 02/18/22 History (For Pump)] estradioL [Estrace] 1 mg PO DAILY #60 tab 07/15/21 02/18/22 Rx Atorvastatin [Lipitor] 10 mg PO DAILY 01/20/22 02/18/22 History Dulaglutide [Trulicity] 1.5 mg SQ MO 01/20/22 02/18/22 History Sulfamethox-Tmp 800-160Mg [Bactrim 1 each PO BID #14 tab 01/23/22 02/18/22 Rx DS 800-160 mg] Tolterodine ER [Detrol LA] 2 mg PO DAILY #20 cap 01/23/22 02/18/22 Rx Allergies Allergy/AdvReac Type Severity Reaction Status Date / Time cephalexin monohydrate AdvReac Mild Nausea & Verified 02/18/22 08:34 [From Keflex] Vomiting hydromorphone [From Dilaudid] AdvReac SEVERE Verified 02/18/22 08:34 SLEEPINESS" ketorolac [From Toradol] AdvReac Nausea & Verified 02/18/22 08:38 Vomiting Surgical - Exam - General no distress, no pain - Eyes normal ocular movement, pale - Respiratory normal expansion, normal respiratory effort - Abdomen Abdomen: soft, non tender Assessment and Plan Assessment: bilateral ureteroscopy, holmium laser lithotripsy, stone basketing, possible stent insertion versus removal
[~2022-02-20 11:48] MED LIST changes: +CIPROFLOXACIN/DEXTROSE PMX 400 MG in DEXTROSE/WATER 1 200ML.BAG IVPB PRN; +DEXAMETHASONE SOD PHOSPHATE 4 MG/ML 1 ML VIAL IV ONE; -LACTATED RINGERS 1,000 ML IV SCH; +MIDAZOLAM 2 MG/2 ML VIAL IV PRN; +ONDANSETRON 4 MG/2 ML VIAL IVP ONE; +SCOPOLAMINE 1 MG/72 HR PATCH TRANSDERM ONE
--- NOTE | 2022-02-20 13:07 | XR ---
KUB HISTORY: Bilateral ureteral calculi Frontal KUB submitted and correlated to CT 01/20/2022 Calcification is noted in the right hemipelvis, difficult to exclude distal ureteral calcification. B ilateral double-J stents are in place along the course of the ureters. Surgical clips are present on the quadrant. Overlying artifacts noted. No evident bowel obstruction or pneumoperitoneum. IMPRESSION: Postprocedural changes as described.
[2022-02-20 13:21] LABS: Glucose,Whole Blood 116 mg/dL (70-110)
[2022-02-20] MEDS ORDERED: FAMOTIDINE 20 MG/2 ML VIAL IVP ONE (13:26)
[2022-02-20] MEDS: LACTATED RINGERS 1,000 ML IV SCH ×2 (13:26→13:28)
[2022-02-20 13:28] VITALS: TEMP 97
[2022-02-20] MEDS ORDERED: SUCCINYLCHOLINE CHLORIDE 200 MG/10 ML VIAL IV ONE (15:07)
[2022-02-20] MEDS ORDERED: FLUMAZENIL 0.1 MG/ML 5 ML VIAL IVP ONE (15:07)
[2022-02-20] MEDS ORDERED: fentaNYL (PF) 50 MCG/ML 2 ML AMP ONE (15:07)
[2022-02-20] MEDS ORDERED: LIDOCAINE 2% INJ 20 MG/ML (2 ML VIAL) ONE (15:07)
[2022-02-20] MEDS ORDERED: PROPOFOL 10 MG/ML 20 ML VIAL IV ONE (15:07)
[2022-02-20] MEDS ORDERED: MIDAZOLAM 2 MG/2 ML VIAL ONE (15:07)
--- NOTE | 2022-02-20 16:12 | P.OP ---
Date of Procedure: 02/20/22 Preoperative Diagnosis: Bilateral ureteral stones Postoperative Diagnosis: Same Procedure(s) Performed: Cystoscopy, bilateral ureteroscopy, holmium laser lithotripsy, stone basketing and stent removal Implants: None Anesthesia: MIGUELITO Surgeon: Bright Conn Estimated Blood Loss (ml): 5 Pathology: other (Bilateral ureteral stones) Condition: stable Disposition: PACU Indications for Procedure: This is a 47-year-old female with history of a bilateral ureteral stones, status post stent insertion on January 20. Of note on presentation she had a 3 mm right- sided UVJ stone, and a 6 mm left-sided proximal ureteral stone. Discussed with her the option of definitive stone management. Option of bilateral ureteroscopy with holmium laser was discussed with her. Discussed the risk which includes but not limited to bleeding, infection, injury to the ureter. She understood all the risk and agreed to proceed with a bilateral ureteroscopy, holmium laser lithotripsy, stone basketing, possible stent insertion versus removal Operative Findings: Left-sided proximal ureteral stone, right-sided distal stone Description of Procedure: Patient brought to the operating room, general anesthesia was induced. She was prepped and draped in sterile fashion and placed in dorsal lithotomy position. A cystoscopy fitted with 21-Occitan sheath was inserted per urethra, cystoscopy was performed which showed no abnormality within the bladder. Attention was then carried to the ureteral stents both were removed. Attention was then carried to the ureteroscopy. At this time a semirigid ureteroscope was inserted per urethra, advanced up the left ureteral orifice and into the proximal ureter, a stone was encountered in the proximal ureter. Using the holmium laser the stone was fragmented fragments, all fragments were removed using the stone basket. Scope was advanced past the site of the stone, which showed no additional fragments or stone. Pullback ureteroscopy was performed which showed no injury to the ureter or any ureteral stones. Attention was then carried to the right side a semirigid ureteroscope was advanced up the right ureteral orifice, a stone was encountered in the distal ureter. Using the holmium laser the stone was fragmented into multiple fragments, fragments were removed using the stone basket, at this time the ureteroscope was advanced past the distal ureter and into the proximal ureter which showed no additional stones or injury to the ureter. Pullback ureteroscopy was performed which showed no injury to the ureter or any sizable fragments. There was no edema in either ureter thus a stent was not placed case, stone fragments were sent for analysis. Patient tolerated procedure well was taken to recovery in stable condition
--- NOTE | 2022-02-20 16:19 | FL ---
Fluoroscopy HISTORY: Ureteral calculus 1 seconds fluoroscopy time supplied to the referring clinician. 1 intraoperative C-arm images docume nt the procedure. See dictated report from urology.
[2022-02-20 16:38] LABS: Glucose,Whole Blood 187 mg/dL (70-110)
[2022-02-20] MEDS: fentaNYL (PF) 50 MCG/ML 2 ML AMP IV PRN ×2 (16:47→16:57)
[2022-02-20] MEDS ORDERED: INSULIN ASPART (NovoLOG) 100 UNIT/ML VIAL SQ ONE (16:48)
[2022-02-20 17:28] VITALS: RESP 18
[2022-02-20 17:43] VITALS: BP 98/64; PULSE 90
== END 2022-02-20 18:02 | disposition home or self-care (01) ==
LOC: OR 11:48
PROVIDERS: ATTEND Urology
DX: N20.1 Calculus of ureter (principal); Z96.0 Presence of urogenital implants; E11.69 Type 2 diabetes mellitus with other specified complication; E78.5 Hyperlipidemia, unspecified; K21.9 Gastro-esophageal reflux disease without esophagitis; J44.9 Chronic obstructive pulmonary disease, unspecified; G43.909 Migraine, unspecified, not intractable, without status migrainosus; G89.29 Other chronic pain; M54.2 Cervicalgia; M19.90 Unspecified osteoarthritis, unspecified site; Z79.4 Long term (current) use of insulin; Z96.41 Presence of insulin pump (external) (internal); Z88.1 Allergy status to other antibiotic agents; Z88.5 Allergy status to narcotic agent; Z88.6 Allergy status to analgesic agent; Z79.899 Other long term (current) drug therapy; Z80.0 Family history of malignant neoplasm of digestive organs; Z80.7 Family history of other malignant neoplasms of lymphoid, hematopoietic and related tissues; Z87.442 Personal history of urinary calculi; Z90.49 Acquired absence of other specified parts of digestive tract; Z79.890 Hormone replacement therapy
CPT/HCPCS: 82365; 74018; 52353; C1769; J2250; J0330; J1100; J2405; J3010; J0744; J2704; J2001

== ENCOUNTER → 2023-06-15 | Outpatient (CLI) | payer OTHER ==
[2023-06-15 16:11] VITALS: BP 99/68; PULSE 87; RESP 16; TEMP 97.7
--- NOTE | 2023-06-15 17:12 | P.HPOB ---
History of Present Illness H&P Date: 06/15/23 Chief Complaint: The patient is here for her routine gynecologic exam and ma mmogram. This is a 48-year-old with an LMP of 2014. She is status post vaginal hysterectomy for benign reasons. She is again complaining of pain with intercourse and seems to have discomfort in the perineal area. She states it is at the site of her previous episiotomy on the inside. She states this feels like it wants to tear every time she has sex. She continues to have hot flashes. She states she discontinued the oral estrogen about 1-1/2 years ago because it didn't seem to help at all with the hot flashes. She also has occasional rectal pain about 3-4 times per week in these pains come randomly. She does use lubrication with sexual intercourse. Review of Systems The patient has lost 23 pounds over the last year. Weight loss has been intentional and she attributes some of the weight loss to her new diabetes medication. She also has been trying to eat healthy as well. She denies respiratory, cardiac, or G.I. problems. Past Medical History Past Medical History: Asthma, COPD, Diabetes Mellitus, GERD/Reflux, Osteoarthritis (OA) Additional Past Medical History / Comment(s): Type II diabetes requiring insulin, CHRONIC NECK PAIN AND MIGRAINE. SEASONAL ALLERGIES. kidney stones. 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 History of Any Multi-Drug Resistant Organisms: None Reported Past Surgical History: Bladder Surgery, Cholecystectomy, Hysterectomy, Orthopedic Surgery Additional Past Surgical History / Comment(s): Bladder sling procedure 2018. Vaginal hysterectomy 2014. Cervical fusion. RIGHT KNEE ARTHROSCOPIC X2, LEFT ARTHROSCOPIC KNEE X2, colonoscopy in the past. Past Anesthesia/Blood Transfusion Reactions: Previous Problems w/ Anesthesia, Motion Sickness, Postoperative Nausea & Vomiting (PONV) Additional Past Anesthesia/Blood Transfusion Reaction / Comment(s): DIFFICULT TO WAKE UP WITH NECK SURGERY, POST OP NAUSEA. DIFFICULT IV START Past Psychological History: Anxiety, Depression Additional Psychological History / Comment(s): NO MEDS TAKEN Smoking Status: Never smoker Past Alcohol Use History: Rare (2 drinks per year.) Additional Past Alcohol Use History / Comment(s): Previously socially drink alcohol, but quit. Past Drug Use History: None Reported Additional Drug Use History / Comment(s): OCCASIONAL USE Additional History: She has been since December 2021. This is her fourth marriage. She was once and has been twice. She does not work outside of the home. - Past Family History Mother Family Medical History: Cancer Additional Family Medical History / Comment(s): RECTAL CANCER. Maternal grandmother had colon cancer. Father Family Medical History: Cancer Additional Family Medical History / Comment(s): lymphoma Medications and Allergies Home Medications Medication Instructions Recorded Confirmed Type Albuterol Inhaler [Ventolin Hfa 2 puff INHALATION RT-QID PRN 06/22/20 06/15/23 History Inhaler] SUMAtriptan succinate [Imitrex] 25 mg PO BID PRN 06/22/20 06/15/23 History INSULIN LISPRO (For Pump) [humaLOG 0.01 units SQ-PUMP CONTINUOUS 07/15/21 06/15/23 History (For Pump)] Dulaglutide [Trulicity] 1.5 mg SQ MO 01/20/22 06/15/23 History Allergies Allergy/AdvReac Type Severity Reaction Status Date / Time cephalexin monohydrate AdvReac Mild Nausea & Verified 06/15/23 16:04 [From Keflex] Vomiting hydromorphone [From Dilaudid] AdvReac SEVERE Verified 06/15/23 16:04 SLEEPINESS" ketorolac [From Toradol] AdvReac Nausea & Verified 06/15/23 16:04 Vomiting Exam Vital Signs Temp Pulse Resp BP Pulse Ox 06/15/23 16:06 97.7 F 87 16 99/68 97 Intake and Output 06/15/23 06/15/23 06/15/23 06:59 14:59 22:59 Other: Weight 66.678 kg Height 4 feet 11 inches, weight 147 pounds, BMI 29.7. This is a well-developed well-nourished white female who is alert and oriented times 3 in no acute distress. HEENT: Within normal limits. NECK: Supple without mass or thyromegaly. CHEST AND LUNGS: Clear to auscultation. HEART: Regular rate and rhythm. BREASTS: Are without mass or discharge. AXILLARY EXAM: Negative for adenopathy. BACK: Negative for CVA tenderness. ABDOMEN: Soft, nontender, without palpable masses. PELVIC EXAM: External genitalia appears normal with minimal atrophy. Vagina appears normal with minimal atrophy. There is mild discomfort upon inserting the speculum into the vagina. Palpation to the perineal area and just inside of the posterior introitus, there is firmness of the perivaginal muscles that seem mildly tender. She is able to slightly relax the muscles when I applied a slight pressure and asked her to relax these muscles. There is no evidence of prolapse. Bimanual examination is negative for mass but there is mild generalized pelvic tenderness greater on the right side. RECTAL EXAM: Rectovaginal exam is negative for mass and is negative for occult blood. There is again evidence of very tense musculature at the posterior introitus around the vagina. EXTREMITIES: Nontender. IMPRESSION: 1. 48-year-old perimenopausal female status post vaginal hysterectomy for benign reasons, with chronic dyspareunia and pelvic tenderness without palpable masses. 2. Dyspareunia may have some component of vaginismus with a very tight muscle near the posterior introitus. 3. Her pelvic tenderness may also contribute to the dyspareunia. 4. Vasomotor symptoms not improved with ERT. Non-menopause causes for hot flashes she also be considered. I recommended that she have thyroid testing done through her PCP. PLAN: 1. Pap smears have been discontinued. 2. Pelvic ultrasound was recommended and the order slip was given to the patient for this. 3. Screening mammogram will be done today. 4. We have had a long discussion regarding the to perivaginal muscles and how this can contribute to her painful intercourse. We discussed methods of possible trying to train herself to relax the muscles as much as possible. We discussed the use of vaginal dilators as well as relaxation techniques. She states she will try to do these things. 5. She will discuss colonoscopy with her PCP to see when she will be due for this. She does have a strong family history of rectal cancer. 6. She was advised to return in one year for her annual well woman exam and as needed.
--- NOTE | 2023-06-16 08:07 | MM ---
Reason for Exam: Screening (asymptomatic). Last mammogram was performed 1 year(s) and 11 month(s) ago. Patient History: Menarche at age 14. First Full-Term at age 18. Hysterectomy at age 35. Postmenopausal. Maternal grandmother had breast cancer, age 68. Risk Values: Tracy 5 year model risk: 0.6%. NCI Lifetime model risk: 6.1%. Prior Study Comparison: 11/13/2016 Bilateral Screening Mammogram, [facility]. 04/03/2019 Bilateral Screening Mammogram, [facility]. 07/15/2021 Bilateral Screening Mammogram, [facility]. Tissue Density: The breast tissue is heterogeneously dense. This may lower the sensitivity of mammography. Findings: Analyzed By CAD. Asymmetry left breast lateral aspect on CC view 8.2 cm from nipple measuring 10 mm in medially 4.74 cm from nipple measuring 5 mm. Asymmetry right breast upper aspect in MLO view 7.9 cm from the nipple. Overall Assessment: Incomplete: need additional imaging evaluation, BI-RAD 0 Management: Diagnostic Mammogram of both breasts. [facility] will attempt to contact patient to return for supplemental views and ultrasound if indicated. Patient should continue monthly self-breast exams. A clinical breast exam by your physician is recommended on an annual basis. This exam should not preclude additional follow-up of suspicious palpable abnormalities. Note on Tracy scores and lifetime risk: 1. A Tracy score greater than 3% is considered moderate risk. If this is the case, consider specialist referral to assess eligibility for a risk reducing agent. 2. If overall lifetime risk for the development of breast cancer is 20% or higher, the patient may qualify for future screening with alternating mammogram and breast MRI. Electronically signed and approved by: Cresencio Morfin DO
== END ==
LOC: WWCWWP 15:53
PROVIDERS: ATTEND Obstetrics & Gynecology
DX: Z12.31 Encounter for screening mammogram for malignant neoplasm of breast (principal); E11.9 Type 2 diabetes mellitus without complications; J44.89 Other specified chronic obstructive pulmonary disease; K21.9 Gastro-esophageal reflux disease without esophagitis; K62.89 Other specified diseases of anus and rectum; M19.90 Unspecified osteoarthritis, unspecified site; N94.10 Unspecified dyspareunia; Z87.442 Personal history of urinary calculi; Z88.1 Allergy status to other antibiotic agents; Z88.5 Allergy status to narcotic agent; Z90.49 Acquired absence of other specified parts of digestive tract; Z90.710 Acquired absence of both cervix and uterus; Z78.0 Asymptomatic menopausal state; G89.29 Other chronic pain; Z88.6 Allergy status to analgesic agent; Z79.4 Long term (current) use of insulin
CPT/HCPCS: 77067

== ENCOUNTER → 2023-06-24 | Outpatient (CLI) | payer OTHER ==
--- NOTE | 2023-06-24 15:17 | MM ---
Reason for Exam: Additional evaluation requested from abnormal screening. Last screening mammogram was performed less than 1 month ago. Patient History: Menarche at age 14. First Full-Term at age 18. Hysterectomy at age 35. Postmenopausal. Maternal grandmother had breast cancer, age 68. Risk Values: Tracy 5 year model risk: 0.6%. NCI Lifetime model risk: 6.1%. Prior Study Comparison: 07/15/2021 Bilateral Screening Mammogram, [facility]. 06/15/2023 Bilateral MG screening mammo w CAD, [facility]. Tissue Density: The breast tissue is heterogeneously dense. This may lower the sensitivity of mammography. Findings: Analyzed By CAD. No persistent abnormal densities seen bilaterally upon spot compression imaging. No suspicious calcifications. Overall Assessment: Benign, BI-RAD 2 Management: Screening Mammogram of both breasts in 1 year. . Results were given to the patient verbally at the time of exam. Patient should continue monthly self-breast exams. A clinical breast exam by your physician is recommended on an annual basis. This exam should not preclude additional follow-up of suspicious palpable abnormalities. Note on Tracy scores and lifetime risk: 1. A Tracy score greater than 3% is considered moderate risk. If this is the case, consider specialist referral to assess eligibility for a risk reducing agent. 2. If overall lifetime risk for the development of breast cancer is 20% or higher, the patient may qualify for future screening with alternating mammogram and breast MRI. Electronically signed and approved by: Archie Villasenor M.D. Radiologis
== END | disposition home or self-care (01) ==
LOC: RADMAMWWP 13:37
PROVIDERS: ATTEND Obstetrics & Gynecology
DX: R92.333 Mammographic heterogeneous density, bilateral breasts (principal); Z78.0 Asymptomatic menopausal state; Z80.3 Family history of malignant neoplasm of breast
CPT/HCPCS: 77066; G0279; 77062

== ENCOUNTER → 2024-06-12 | Outpatient (CLI) | payer OTHER ==
[2024-06-13 02:25] LABS: HCT 42.3 % (37.2-46.3); HGB 13.7 g/dL (12.0-15.0); MCH 27.1 pg (27.0-32.0); MCHC 32.4 g/dL (32.0-37.0); MCV 83.8 FL (80.0-97.0); Mean Platelet Volume 10.6 FL (9.5-12.2); NRBC Per 100 WBC 0 X 10*3/uL (0.00-0.01); Platelet Count 257 X 10*3/uL (140-440); RBC 5.05 X 10*6/uL (4.10-5.20); RDW 13.4 % (11.5-14.5); WBC 7.97 X 10*3/uL (4.50-10.00)
[2024-06-13 03:08] LABS: Blood Urea Nitrogen 15.2 mg/dL (9.0-27.0); Carbon Dioxide 24.8 mmol/L (21.6-31.8); Chloride 103 mmol/L (96-109); Sodium 141 mmol/L (135-145)
== END | disposition home or self-care (01) ==
LOC: LABPAT 16:15
PROVIDERS: ATTEND Internal Medicine Interventional Cardiology
DX: Z01.812 Encounter for preprocedural laboratory examination (principal); R07.9 Chest pain, unspecified
CPT/HCPCS: 80051; 82565; 84520; 85027

== ENCOUNTER 2024-06-22 10:16 | Day surgery (SDC) | payer OTHER ==
[~2024-06-22 10:16] MED LIST changes: +ALPRAZolam 0.25 MG TAB PO PRN; -CIPROFLOXACIN/DEXTROSE PMX 400 MG in DEXTROSE/WATER 1 200ML.BAG IVPB PRN; -DEXAMETHASONE SOD PHOSPHATE 4 MG/ML 1 ML VIAL IV ONE; -MIDAZOLAM 2 MG/2 ML VIAL IV PRN; +NITROGLYCERIN SL TABS 0.4 MG TAB SUBLINGUAL PRN; -ONDANSETRON 4 MG/2 ML VIAL IVP ONE; -SCOPOLAMINE 1 MG/72 HR PATCH TRANSDERM ONE
[2024-06-22] MEDS: ASPIRIN 325 MG TAB PO STA (10:47)
[2024-06-22] MEDS: ALPRAZolam 0.5 MG TAB PO PRN (10:47)
[2024-06-22] MEDS: IV FLUID CONTINUATION 1,000 ML IV ONE (10:56)
[2024-06-22] MEDS: MIDAZOLAM 2 MG/2 ML VIAL IVP ONE (12:12)
[2024-06-22] MEDS: LIDOCAINE 1% INJ 10MG/ML (20 ML MDV) SQ ONE (12:12)
[2024-06-22] MEDS: fentaNYL (PF) 50 MCG/ML 2 ML AMP IVP ONE (12:14)
[2024-06-22] MEDS ORDERED: RX INFO: IV CONTRAST WAS GIVEN 1 EACH MISC MISCELLANE PRN (12:32)
[2024-06-22] MEDS: HEPARIN SODIUM,PORCINE 10,000 UNIT in SODIUM CHLORIDE 0.9% 1,000 ML IRRIGATION PRN (12:33)
[2024-06-22] MEDS: HEPARIN SODIUM,PORCINE (1 ML) 2,500 UNIT in SODIUM CHLORIDE 0.9% 250 ML IRRIGATION PRN (12:33)
[2024-06-22] MEDS: IOPAMIDOL-370 100ML BTL INJ ONE (12:33)
--- NOTE | 2024-06-22 12:38 | P.PCN ---
Date of Procedure: 06/22/24 Operative Findings: CARDIAC CATHETERIZATION PERFORMING PHYSICIAN: Marino Kern MD, RPVI PROCEDURE PERFORMED: 1. Selective right and left coronary angiogram 2. Left heart catheterization 3. Ultrasound-guided access of the right common femoral artery and selective right common femoral artery angiogram INDICATION: Chest discomfort concerning for angina COMPLICATION: None APPROACH: Right common femoral artery LEVEL OF SEDATION: Moderate with sedation in length of 22 minutes PROCEDURE DESCRIPTION: After obtaining an informed consent, the patient was brought to cardiac labourers. Local anesthesia was performed using lidocaine subcutaneously. The right common femoral artery was cannulated using Seldinger technique, the guidewire passed easily, following that we advanced a 6 Singaporean sheath dilator assembly, the wire and dilator were removed and sheath was flushed. Selective right and left coronary angiogram using a 6-Singaporean JR4 and JL catheters. Following that we did left heart catheterization using 6-Singaporean JR4 catheter The procedure was completed there was no complication. SELECTIVE CORONARY ANGIOGRAM: The right coronary artery: Large-caliber vessel with a spasm was identified in the proximal portion resolved spontaneously with no evidence of high-grade stenosis Left main: Appears to have mild disease only The left circumflex: Large-caliber vessel nondominant vessel with no evidence of high-grade stenosis. Gives rise into the first and second obtuse marginal branches both appear to be normal The left anterior descending artery: The proximal LAD has mild disease appears to be in the range of 30 to 40% with no evidence of high-grade stenosis was identified in the mid and distal portion and the LAD is a medium caliber vessel HEMODYNAMICS: The LVEDP was 13 mmHg with no significant gradient was identified across aortic valve CONCLUSION: 1. Coronary vasospasm involving the proximal RCA 2. Mild disease involving the proximal LAD 3. Normal left-sided filling pressure POSTPROCEDURE MANAGEMENT: []
[2024-06-22] MEDS: ATORVASTATIN 80 MG TAB PO STA (16:25)
[2024-06-22] MEDS: SODIUM CHLORIDE 0.9% 1,000 ML in EMPTY BAG 1 BAG IV SCH (16:25)
[2024-06-22] MEDS: SODIUM CHLORIDE 0.9% 1,000 ML IV SCH (16:25)
[2024-06-22 19:23] VITALS: BP 88/59; PULSE 86; RESP 17; TEMP 97.8
== END 2024-06-22 20:15 | disposition home or self-care (01) ==
LOC: CATHCVL 10:16 → 6NMEDSUR 14:44 → CATHCVL 20:15
PROVIDERS: ATTEND Internal Medicine Interventional Cardiology
DX: I38 Endocarditis, valve unspecified (principal); E11.8 Type 2 diabetes mellitus with unspecified complications; R60.0 Localized edema; Z88.1 Allergy status to other antibiotic agents; Z79.4 Long term (current) use of insulin
CPT/HCPCS: 93458; J2250; J1644 ×2; J2003; J3010; Q9967

== ENCOUNTER → 2024-08-09 | Outpatient (CLI) | payer OTHER ==
[2024-08-09 20:13] LABS: Microalbumin Creatinine Ratio <13 mg/g Cr (0-30); Urine Creatinine 90.4 mg/dL (28.0-217.0)
[2024-08-09 20:20] LABS: ALT 11 U/L (8-44); AST 17 U/L (13-35); Albumin 4.4 g/dL (3.8-4.9); Albumin/Globulin Ratio 1.76 Ratio (1.60-3.17); Alkaline Phosphatase 89 U/L (41-126); BUN/Creat Ratio 14.88 Ratio (12.00-20.00); Blood Urea Nitrogen 11.9 mg/dL (9.0-27.0); Calcium 9.3 mg/dL (8.7-10.3); Carbon Dioxide 24.9 mmol/L (21.6-31.8); Chloride 104 mmol/L (96-109); Chol/HDL Ratio 2.46 Ratio; Globulin 2.5 g/dL (1.6-3.3); Glucose 137 mg/dL (70-110); LDL Cholesterol,Calculated 106.5 mg/dL (0.0-131.0); Potassium 4.6 mmol/L (3.5-5.5); Sodium 139 mmol/L (135-145); Total Bilirubin 0.4 mg/dL (0.3-1.2); Total Protein 6.9 g/dL (6.2-8.2); VLDL Calculation 15.78 mg/dL (5.00-40.00)
== END | disposition home or self-care (01) ==
LOC: LABWHC1 12:45
PROVIDERS: ATTEND Internal Medicine
DX: E10.65 Type 1 diabetes mellitus with hyperglycemia (principal); E55.9 Vitamin D deficiency, unspecified
CPT/HCPCS: 36415; 80053; 80061; 82043; 82306; 82570; 83036

== ENCOUNTER 2024-10-14 18:52 | Emergency (ER) | payer OTHER ==
--- NOTE | 2024-10-14 19:41 | ED ---
General Adult HPI - General Chief complaint: Urogenital Stated complaint: UTI Time Seen by Provider: 10/14/24 19:02 Source: patient, RN notes reviewed Mode of arrival: ambulatory Limitations: no limitations - History of Present Illness Initial comments: 49-year-old female presents to the emergency department for evaluation of dysuria. Patient reports that this been going on around a week. She notes history of recurrent urinary tract infections. She was recently on antibiotics about 3 weeks ago for UTI. She admits to chills. Admits to small amounts of urine very frequently. Admits to burning with urination. Admits to suprapubic pain. Bilateral flank pain but worse on the right. She also has a history of kidney stones with stent placement by Dr. Rea. - Related Data Home Medications Medication Instructions Recorded Confirmed Albuterol Inhaler [Ventolin Hfa 2 puff INHALATION RT-QID PRN 06/22/20 06/19/24 Inhaler] SUMAtriptan succinate [Imitrex] 25 mg PO BID PRN 06/22/20 06/19/24 INSULIN LISPRO (For Pump) [humaLOG 0.01 units SQ-PUMP CONTINUOUS 07/15/21 06/22/24 (For Pump)] Dulaglutide [Trulicity] 4.5 mg SQ MO 01/20/22 06/19/24 Previous Rx's Medication Instructions Recorded Ciprofloxacin HCl [Cipro] 250 mg PO BID 5 Days #10 tab 10/14/24 Allergies Allergy/AdvReac Type Severity Reaction Status Date / Time cephalexin monohydrate AdvReac Mild Nausea & Verified 10/14/24 19:01 [From Keflex] Vomiting hydromorphone [From Dilaudid] AdvReac SEVERE Verified 10/14/24 19:01 SLEEPINESS" ketorolac [From Toradol] AdvReac Nausea & Verified 10/14/24 19:01 Vomiting Review of Systems ROS Statement: Those systems with pertinent positive or pertinent negative responses have been documented in the HPI. ROS Other: All systems not noted in ROS Statement are negative. Past Medical History Past Medical History: Asthma, COPD, Diabetes Mellitus, GERD/Reflux, Osteoarthritis (OA) Additional Past Medical History / Comment(s): Type II diabetes requiring insulin, CHRONIC NECK PAIN AND MIGRAINE. SEASONAL ALLERGIES. kidney stones. History of Any Multi-Drug Resistant Organisms: None Reported Past Surgical History: Bladder Surgery, Cholecystectomy, Hysterectomy, Orthopedic Surgery Additional Past Surgical History / Comment(s): Bladder sling procedure 2018. Vaginal hysterectomy 2015. Cervical fusion. Bilat. knee arthroscopies X2, colonoscopy Past Anesthesia/Blood Transfusion Reactions: Previous Problems w/ Anesthesia, Motion Sickness, Postoperative Nausea & Vomiting (PONV) Additional Past Anesthesia/Blood Transfusion Reaction / Comment(s): DIFFICULT TO WAKE UP WITH NECK SURGERY - had dilaudid, POST OP NAUSEA. DIFFICULT IV START Past Psychological History: Anxiety, Depression Smoking Status: Never smoker Past Alcohol Use History: None Reported - Past Family History Mother Family Medical History: Cancer Father Family Medical History: Cancer Additional Family Medical History / Comment(s): lymphoma. paternal grandmother - breast cancer General Exam Limitations: no limitations General appearance: alert, in no apparent distress Head exam: Present: atraumatic, normocephalic, normal inspection Eye exam: Present: normal appearance, PERRL, EOMI. Absent: scleral icterus, conjunctival injection, periorbital swelling ENT exam: Present: normal exam, mucous membranes moist Respiratory exam: Present: normal lung sounds bilaterally. Absent: respiratory distress, wheezes, rales, rhonchi, stridor Cardiovascular Exam: Present: regular rate, normal rhythm, normal heart sounds. Absent: systolic murmur, diastolic murmur, rubs, gallop, clicks GI/Abdominal exam: Present: soft, tenderness (Suprapubic), normal bowel sounds. Absent: distended, guarding, rebound, rigid Extremities exam: Present: normal inspection, full ROM, normal capillary refill. Absent: tenderness, pedal edema, joint swelling, calf tenderness Back exam: Present: CVA tenderness (R) Neurological exam: Present: alert, oriented X3 Psychiatric exam: Present: normal affect, normal mood Skin exam: Present: warm, dry, intact, normal color. Absent: rash Course Vital Signs 10/14/24 10/14/24 18:59 21:32 Temperature 98 F 97.6 F Pulse Rate 88 84 Respiratory 18 16 Rate Blood Pressure 118/79 115/80 O2 Sat by Pulse 99 98 Oximetry Medical Decision Making - Medical Decision Making Was pt. sent in by a medical professional or institution (, PA, ELECTRICAL SUPERVISOR, urgent care, hospital, or [facility]...) When possible be specific @ -No Did you speak to anyone other than the patient for history (EMS, parent, family, police, friend...)? What history was obtained from this source @ -No Did you review nursing and triage notes (agree or disagree)? Why? @ -I reviewed and agree with nursing and triage notes Were old charts reviewed (outside hosp., previous admission, EMS record, old EKG, old radiological studies, urgent care reports/EKG's, [facility] records)? Report findings @ -No old charts were reviewed Differential Diagnosis (chest pain, altered mental status, abdominal pain women, abdominal pain men, vaginal bleeding, weakness, fever, dyspnea, syncope, headache, dizziness, GI bleed, back pain, seizure, CVA, palpatations, mental health, musculoskeletal)? @ -Differential Back Pain: Strain, zoster, cauda equina syndrome, epidural abscess, vertebral osteomyelitis, discitis, fracture, subluxation, disc herniation, DJD, spinal stenosis, dissection, AAA, pancreatitis, peptic ulcer disease, pyelonephritis, kidney stone, this is not meant to be an all-inclusive list. EKG interpreted by me (3pts min.). @ -None X-rays interpreted by me (1pt min.). @ -None done CT interpreted by me (1pt min.). @ -CT abdomen pelvis shows a 6 mm bladder stone, no evidence of hydronephrosis, no other acute findings U/S interpreted by me (1pt. min.). @ -None done What testing was considered but not performed or refused? (CT, X-rays, U/S, labs)? Why? @ -None What meds were considered but not given or refused? Why? @ -None Did you discuss the management of the patient with other professionals (professionals i.e. , PA, ELECTRICAL SUPERVISOR, lab, RT, psych nurse, social science teacher, welder apprentice arc, teacher, financial aids officer, case manager specialist)? Give summary @ -No Was smoking cessation discussed for >3mins.? @ -No Was critical care preformed (if so, how long)? @ -No Were there social determinants of health that impacted care today? How? (Homelessness, low income, unemployed, alcoholism, drug addiction, transportation, low edu. Level, literacy, decrease access to med. care, custodial, rehab)? @ -No Was there de-escalation of care discussed even if they declined (Discuss DNR or withdrawal of care, Hospice)? DNR status @ -No What co-morbidities impacted this encounter? (DM, HTN, Smoking, COPD, CAD, Cancer, CVA, ARF, Chemo, Hep., AIDS, mental health diagnosis, sleep apnea, morbid obesity)? @ -None Was patient admitted / discharged? Hospital course, mention meds given and route, prescriptions, significant lab abnormalities, going to OR and other pertinent info. @ -Discharge. Patient presented emergency department for evaluation of dysuria , suprapubic pain.Laboratory studies obtained revealing no significant leukocytosis, hemoglobin 14.6; CMP on actionable, no significant lactic acidosis; UA shows positive nitrates, large leukocyte esterase, [address] abdomen pelvis was obtained revealing a 6 mm bladder stone, no other evidence of acute process. Patient will be started on p.o. antibiotics advised to follow-up with her PCP. She is understanding agreeable this plan. Patient stable at time of discharge. Case discussed with Dr. Wood. Undiagnosed new problem with uncertain prognosis? @ -No Drug Therapy requiring intensive monitoring for toxicity (Heparin, Nitro, Insulin, Cardizem)? @ -No Were any procedures done? @ -No Diagnosis/symptom? @ -UTI Acute, or Chronic, or Acute on Chronic? @ -Acute Uncomplicated (without systemic symptoms) or Complicated (systemic symptoms)? @ -Uncomplicated Side effects of treatment? @ -No Exacerbation, Progression, or Severe Exacerbation? @ -No Poses a threat to life or bodily function? How? (Chest pain, [place], [place], pneumonia, PE, COPD, DKA, ARF, appy, cholecystitis, CVA, Diverticulitis, Homicidal, Suicidal, threat to staff... and all critical care pts) @ -No - Lab Data Result diagrams: 10/14/24 19:47 10/14/24 19:47 Lab Results 10/14/24 10/14/24 10/14/24 Range/Units 19:29 19:47 19:47 WBC 7.7 (3.8-10.6) k/uL RBC 5.58 H (3.80-5.40) m/uL Hgb 14.6 (11.4-16.0) gm/dL Hct 44.8 (34.0-46.0) % MCV 80.4 (80.0-100.0) fL MCH 26.2 (25.0-35.0) pg MCHC 32.6 (31.0-37.0) g/dL RDW 13.3 (11.5-15.5) % Plt Count 223 (150-450) k/uL MPV 8.2 Neutrophils % 55 % Lymphocytes % 39 % Monocytes % 4 % Eosinophils % 1 % Basophils % 0 % Neutrophils # 4.2 (1.3-7.7) k/uL Lymphocytes # 3.0 (1.0-4.8) k/uL Monocytes # 0.3 (0-1.0) k/uL Eosinophils # 0.1 (0-0.7) k/uL Basophils # 0.0 (0-0.2) k/uL Sodium 137 (137-145) mmol/L Potassium 4.5 (3.5-5.1) mmol/L Chloride 99 (98-107) mmol/L Carbon Dioxide 27 (22-30) mmol/L Anion Gap 11 mmol/L BUN 17 (7-17) mg/dL Creatinine 0.66 (0.52-1.04) mg/dL Est GFR (CKD-EPI)AfAm >90 (>60 ml/min/1.73 sqM) Est GFR (CKD-EPI)NonAf >90 (>60 ml/min/1.73 sqM) Glucose 118 H (74-99) mg/dL Plasma Lactic Acid Tj (0.7-2.0) mmol/L Calcium 10.3 H (8.4-10.2) mg/dL Total Bilirubin 0.6 (0.2-1.3) mg/dL AST 21 (14-36) U/L ALT 13 (4-34) U/L Alkaline Phosphatase 75 (38-126) U/L Total Protein 7.3 (6.3-8.2) g/dL Albumin 4.4 (3.5-5.0) g/dL Urine Color Yellow Urine Appearance Cloudy H (Clear) Urine pH 6.5 (5.0-8.0) Ur Specific [place] 1.028 (1.001-1.035) Urine Protein 1+ H (Negative) Urine Glucose (UA) Negative (Negative) Urine Ketones Negative (Negative) Urine Blood Negative (Negative) Urine Nitrite Positive H (Negative) Urine Bilirubin Negative (Negative) Urine Urobilinogen 2.0 (<2.0) mg/dL Ur Leukocyte Esterase Large H (Negative) Urine RBC 1 (0-5) /hpf Urine WBC 137 H (0-5) /hpf Ur Squamous Epith Cells 51 H (0-4) /hpf Calcium Oxalate Crystal Few H (None) /hpf Urine Bacteria Many H (None) /hpf Urine Mucus Many H (None) /hpf 10/14/24 Range/Units 19:47 WBC (3.8-10.6) k/uL RBC (3.80-5.40) m/uL Hgb (11.4-16.0) gm/dL Hct (34.0-46.0) % MCV (80.0-100.0) fL MCH (25.0-35.0) pg MCHC (31.0-37.0) g/dL RDW (11.5-15.5) % Plt Count (150-450) k/uL MPV Neutrophils % % Lymphocytes % % Monocytes % % Eosinophils % % Basophils % % Neutrophils # (1.3-7.7) k/uL Lymphocytes # (1.0-4.8) k/uL Monocytes # (0-1.0) k/uL Eosinophils # (0-0.7) k/uL Basophils # (0-0.2) k/uL Sodium (137-145) mmol/L Potassium (3.5-5.1) mmol/L Chloride (98-107) mmol/L Carbon Dioxide (22-30) mmol/L Anion Gap mmol/L BUN (7-17) mg/dL Creatinine (0.52-1.04) mg/dL Est GFR (CKD-EPI)AfAm (>60 ml/min/1.73 sqM) Est GFR (CKD-EPI)NonAf (>60 ml/min/1.73 sqM) Glucose (74-99) mg/dL Plasma Lactic Acid Tj 1.3 (0.7-2.0) mmol/L Calcium (8.4-10.2) mg/dL Total Bilirubin (0.2-1.3) mg/dL AST (14-36) U/L ALT (4-34) U/L Alkaline Phosphatase (38-126) U/L Total Protein (6.3-8.2) g/dL Albumin (3.5-5.0) g/dL Urine Color Urine Appearance (Clear) Urine pH (5.0-8.0) Ur Specific [place] (1.001-1.035) Urine Protein (Negative) Urine Glucose (UA) (Negative) Urine Ketones (Negative) Urine Blood (Negative) Urine Nitrite (Negative) Urine Bilirubin (Negative) Urine Urobilinogen (<2.0) mg/dL Ur Leukocyte Esterase (Negative) Urine RBC (0-5) /hpf Urine WBC (0-5) /hpf Ur Squamous Epith Cells (0-4) /hpf Calcium Oxalate Crystal (None) /hpf Urine Bacteria (None) /hpf Urine Mucus (None) /hpf Disposition Clinical Impression: UTI (urinary tract infection) Disposition: HOME SELF-CARE Condition: Stable Instructions (If sedation given, give patient instructions): Urinary Tract Infection in Women (ED) Additional Instructions: Please potato picker antibiotics and take until completion. Follow-up with your primary care provider and Dr. Conn. Return to the emergency department for new or worsening symptoms. Prescriptions: Ciprofloxacin HCl [Cipro] 250 mg PO BID 5 Days #10 tab Is patient prescribed a controlled substance at d/c from ED?: No Referrals: Mikal Wong MD [Primary Care Provider] - 1-2 days Bright Conn MD [STAFF PHYSICIAN] - 1-2 days
[2024-10-14] MEDS: SODIUM CHLORIDE 0.9% 1,000 ML IV ONE (19:53)
[2024-10-14] MEDS: MORPHINE SULFATE 2 MG/ML SYRINGE IVP ONE (19:54)
[2024-10-14 20:19] LABS: Basophils % (A) 0 %; Eosinophils # (A) 0.1 k/uL (0-0.7); Eosinophils % (A) 1 %; HCT 44.8 % (34.0-46.0); HGB 14.6 gm/dL (11.4-16.0); Lymphocytes % (A) 39 %; MCH 26.2 pg (25.0-35.0); MCHC 32.6 g/dL (31.0-37.0); MCV 80.4 fL (80.0-100.0); Mean Platelet Volume 8.2; Monocytes # (A) 0.3 k/uL (0-1.0); Monocytes % (A) 4 %; Neutrophils # (A) 4.2 k/uL (1.3-7.7); Neutrophils % (A) 55 %; Platelet Count 223 k/uL (150-450); RBC 5.58 m/uL (3.80-5.40); RDW 13.3 % (11.5-15.5); WBC 7.7 k/uL (3.8-10.6)
[2024-10-14 20:32] LABS: ALT 13 U/L (4-34); AST 21 U/L (14-36); African American GFR (CKD) >90 (>60 ml/min/1.73 sqM); Albumin 4.4 g/dL (3.5-5.0); Alkaline Phosphatase 75 U/L (38-126); Anion Gap 11 mmol/L; Blood Urea Nitrogen 17 mg/dL (7-17); Calcium 10.3 mg/dL (8.4-10.2); Carbon Dioxide 27 mmol/L (22-30); Chloride 99 mmol/L (98-107); Glucose 118 mg/dL (74-99); Non-African American GFR(CKD) >90 (>60 ml/min/1.73 sqM); Potassium 4.5 mmol/L (3.5-5.1); Sodium 137 mmol/L (137-145); Total Bilirubin 0.6 mg/dL (0.2-1.3); Total Protein 7.3 g/dL (6.3-8.2)
[2024-10-14 20:45] LABS: Appearance,Urine Cloudy (Clear); Bacteria,Urine Many /hpf; Bilirubin,Urine Negative (Negative); Blood,Urine Negative (Negative); Calcium Oxalate Crystals,Urine Few /hpf; Color,Urine Yellow; Glucose,Urine (UA) Negative (Negative); Ketones,Urine Negative (Negative); Leukocyte Esterase,Urine Large (Negative); Mucus,Urine Many /hpf; Nitrite,Urine Positive (Negative); PH, Urine 6.5 (5.0-8.0); Protein,Urine 1+ (Negative); RBC,Urine 1 /hpf (0-5); Specific Gravity,Urine 1.028 (1.001-1.035); Squamous Epithelial Cell,Urine 51 /hpf (0-4); WBC,Urine 137 /hpf (0-5)
--- NOTE | 2024-10-14 20:51 | CT ---
EXAMINATION TYPE: CT abdomen pelvis wo con CT DLP: 531.3 mGycm, Automated exposure control for dose reduction was used. DATE OF EXAM: 10/14/2024 8:42 PM COMPARISON: CT abdomen pelvis 01/20/2022, 01/27/2019 CLINICAL INDICATION:Female, 49 years old with history of abd pain, flank pain; Pt comes to with co mplaint of painful uriation. pt states she has been fighting a uti since July. Hx of bladder sx, h ystersctomy. Scanned by [employer] TECHNIQUE: Standard CT of the abdomen and pelvis without IV or oral contrast. Lack of IV or oral co ntrast limits evaluation of solid and hollow organ viscera. Coronal and sagittal reformats were perfo rmed. FINDINGS: LOWER CHEST: Unremarkable noncontrast appearance ABDOMEN LIVER: Stable right hepatic dome 1.3 cm cyst. GALLBLADDER AND BILE DUCTS: The gallbladder is surgically absent. No biliary ductal dilatation. PANCREAS: Unremarkable noncontrast appearance SPLEEN: Unremarkable noncontrast appearance ADRENAL GLANDS: Unremarkable noncontrast appearance. KIDNEYS AND URETERS: No evidence of hydronephrosis or renal calculus. No hydroureter. No perinephric or periureteral fat stranding. PELVIS BLADDER: There is a 6 mm calculus within the right aspect of the posterior urinary bladder measuring up to 6 mm. REPRODUCTIVE: The uterus is surgically absent. ABDOMEN & PELVIS STOMACH AND BOWEL: Stomach and duodenum are unremarkable. The appendix is within normal limits. No fo johanne bowel wall thickening or surrounding inflammatory changes. No evidence of bowel obstruction. PERITONEUM: No evidence of pneumoperitoneum or free fluid. VASCULATURE: No evidence of aortic aneurysm. MUSCULOSKELETAL: No acute osseous abnormalities LYMPH NODES: No gross evidence for lymphadenopathy. SOFT TISSUE/ABDOMINAL WALL: Left anterior abdominal wall subcutaneous fat stranding. Possibly related to medication injection. IMPRESSION: 1. No CT evidence for acute abdominal/pelvic process. No obstructive uropathy. 2. Urinary bladder 6 mm calculus. [facility], , 10/14/2024 8:49 PM
[2024-10-14 21:34] VITALS: BP 115/80; PULSE 84; RESP 16; TEMP 97.6
== END 2024-10-14 21:32 | disposition home or self-care (01) ==
LOC: EC 18:52
DX: N39.0 Urinary tract infection, site not specified (principal); Z88.8 Allergy status to other drugs, medicaments and biological substances; Z88.6 Allergy status to analgesic agent; Z88.1 Allergy status to other antibiotic agents
CPT/HCPCS: 36415; 80053; 83605; 85025; 81001; 87086; 74176; 99284; 96374; 96361 ×2; J2270

== ENCOUNTER 2025-01-03 09:04 | Day surgery (SDC) | payer OTHER ==
[2025-01-01 15:27] VITALS: BMI 29.0
[2025-01-03] MEDS: IV FLUID CONTINUATION 1,000 ML IV ONE (09:50)
[2025-01-03] MEDS: LACTATED RINGERS 1,000 ML IV SCH (09:51)
[2025-01-03 10:05] VITALS: RESP 16; TEMP 97
[2025-01-03 10:15] LABS: Glucose,Whole Blood 103 mg/dL (70-110)
[2025-01-03] MEDS ORDERED: PROPOFOL 10 MG/ML 20 ML VIAL IV ONE (10:58)
[2025-01-03] MEDS ORDERED: LIDOCAINE 1% INJ 10MG/ML (20 ML MDV) ONE (10:58)
--- NOTE | 2025-01-03 11:21 | P.PCN ---
Date of Procedure: 01/03/25 Procedure(s) Performed: Brief history: Patient is a pleasant 49-year-old white female scheduled for an elective upper endoscopy as well as colonoscopy as a part of evaluation of dysphagia/odynophagia and screening for colon cancer. Her mother and maternal grandmother both were diagnosed with colon cancer in the 60s respectively Procedure performed: Esophagogastroduodenoscopy with biopsy Colonoscopy Preoperative diagnosis: Dysphagia/odynophagia Screening for colon cancer and family history of colon cancer Anesthesia: MAC Procedure: After informed consent was obtained from the patient was brought into the endoscopy unit and IV sedation was administered by anesthesia under continuous monitoring. Initially upper endoscopy was done. The Olympus GF 160 video endoscope was inserted inserted into the mouth and esophagus intubated without any difficulty and was gradually advanced into the stomach and duodenum and carefully examined. The bulb and second part of the duodenum appeared normal. The scope was then withdrawn into the stomach adequately insufflated with air and upon careful examination the antrum and mild patchy areas of erythema consistent with gastritis and biopsies were done from this area. Mucosa of the body, cardia and fundus appeared normal. The scope was then withdrawn into the esophagus. The GE junction was located at 36 cm to the incisors. It appeared regular with no erythema erosions or ulcerations. Rest of the esophagus appeared normal. Biopsies were done from the mid and distal esophagus patient tolerated the procedure well. At this time the patient continued to remain sedation. Initial digital rectal examination was normal. Olympus CF 160 video colonoscope was then inserted into the rectum and gradually advanced to the cecum without any difficulty. Careful examination was performed as the scope was gradually being withdrawn. The prep was fair. The cecum, ascending colon, transverse colon, descending colon, sigmoid colon and rectum appeared normal. Retroflexion was performed in the rectum and no lesions were noted. Patient tolerated the procedure well. Impression: 1. Upper endoscopy revealed mild antral gastritis but no evidence of esophagitis or esophageal stricture 2. Colonoscopy was within normal limits with no evidence of colorectal neoplasia. Recommendations: Findings of this examination were discussed with the patient as well as her family. She was advised to follow with the biopsy results. Recommended repeat screening colonoscopy in 5 years because of the family history of colon cancer
[2025-01-03 11:41] VITALS: BP 97/63; PULSE 83
== END 2025-01-03 12:15 | disposition home or self-care (01) ==
LOC: ORWHC2ENDO 09:04
PROVIDERS: ATTEND Internal Medicine Gastroenterology
DX: Z12.11 Encounter for screening for malignant neoplasm of colon (principal); R13.10 Dysphagia, unspecified; K29.50 Unspecified chronic gastritis without bleeding; Z80.0 Family history of malignant neoplasm of digestive organs; J44.9 Chronic obstructive pulmonary disease, unspecified; E11.9 Type 2 diabetes mellitus without complications; M19.90 Unspecified osteoarthritis, unspecified site; G43.909 Migraine, unspecified, not intractable, without status migrainosus; F41.9 Anxiety disorder, unspecified; F32.A Depression, unspecified; K21.9 Gastro-esophageal reflux disease without esophagitis; Z79.899 Other long term (current) drug therapy; Z79.51 Long term (current) use of inhaled steroids; Z79.4 Long term (current) use of insulin
CPT/HCPCS: 88305; 45378; 43239; J2003; J2704